=== PATIENT | male | born 1980 | race Caucasian/White ===

== ENCOUNTER 2023-05-07 12:13 | Emergency (ER) | payer OTHER, SELFPAY ==
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
[2023-05-07 12:28] VITALS: BP 113/78; PULSE 73; RESP 18; TEMP 36.8; O2SAT 96; BMI 26.6
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
--- NOTE | 2023-05-07 12:51 | PC.NURSE ---
pt in CT scan
[2023-05-07] MEDS: Ketorolac Tromethamine 30 MG/ML VIAL IM (14:27)
== END 2023-05-07 14:40 | disposition home or self-care (01) ==
PROVIDERS: Emergency Provider Emergency Medicine
DX: Z04.1 Encounter for examination and observation following transport accident (principal); M62.838 Other muscle spasm; M25.511 Pain in right shoulder; E11.9 Type 2 diabetes mellitus without complications; I10 Essential (primary) hypertension
CPT/HCPCS: 72100; 72125; 73030; 96372; 99283; 99284; J1885

== ENCOUNTER 2023-07-01 10:08 | Outpatient (REF) | payer OTHER, SELFPAY ==
[2023-07-01 12:08] LABS: Alanine Aminotransferase 22 U/L (0-40); Albumin Level 3.8 g/dL (3.5-5.0); Alkaline Phosphatase 96 U/L (39-117); Anion Gap 10 (12-20); Aspartate Amino Transferase 17 U/L (5-37); Bilirubin Total 0.4 mg/dL (0.0-1.0); Blood Urea Nitrogen 15 mg/dL (9-16); Calcium 9.6 mg/dL (8.4-10.2); Carbon Dioxide 26 mmol/L (22-29); Chloride 105 mmol/L (96-108); Estimated Glomerular Filt Rate > 60; Glucose Random 297 mg/dL (60-115); Potassium 4.2 mmol/L (3.3-5.1); Sodium 137 mmol/L (135-145); Total Protein 6.9 g/dL (6.5-8.0)
[2023-07-01 12:29] LABS: Creatinine Urine 69.61 mg/dL; Microalbumin Urine < 5.0 mg/L
== END 2023-07-01 10:09 | disposition home or self-care (01) ==
LOC: HO.HHCL 10:08
PROVIDERS: Visit Provider Registered Nurse
DX: E11.9 Type 2 diabetes mellitus without complications (principal)
CPT/HCPCS: 36415; 80053; 82043

== ENCOUNTER → 2023-10-27 14:14 | Outpatient (BNVA) | payer OTHER, SELFPAY | PROVIDERS: Visit Provider Nurse Practitioner Family ==

== ENCOUNTER 2024-07-09 13:32 | Outpatient (REF) | payer OTHER, SELFPAY ==
--- NOTE | ~2024-07-09 | XR_ITS ---
EXAMINATION: XR SHOULDER, RIGHT CLINICAL INFORMATION: Acute shoulder pain COMPARISON: X-ray 05/07/2023 TECHNIQUE: AP external rotation, Grashey, scapular Y, and axillary views of the right shoulder. FINDINGS: No acute fracture. Mild-moderate acromioclavicular arthritis. Glenohumeral alignment is anatomic with normal joint space. No abnormal soft tissue calcifications. XR/XR shoulder RT min 2V IMPRESSION: Mild-moderate acromioclavicular arthritis. Electronically signed by: Pepe Smyth MD 07/12/2024 10:39 AM EDT
== END 2024-07-09 13:33 | disposition home or self-care (01) ==
LOC: HO.HHCX 13:32
PROVIDERS: Visit Provider Internal Medicine
DX: M25.511 Pain in right shoulder (principal)
CPT/HCPCS: 73030

== ENCOUNTER 2024-12-13 09:55 | Outpatient (REF) | payer OTHER, SELFPAY ==
--- NOTE | ~2024-12-13 | XR_ITS ---
EXAMINATION: XR CHEST CLINICAL INFORMATION: 3 day h/o right anterior chest pain, worse with inspiration. COMPARISON: X-ray dated July 03, 2010 TECHNIQUE: 2 views of the chest were obtained. FINDINGS: Menisci shaped opacity right lower hemithorax with blunting of the right costophrenic angle. Volume loss right lung. Pulmonary reticular pattern. No pneumothorax. Aerated left lung. Cardiomediastinal silhouette is normal. Osseous structures are intact. XR/XR chest 2V IMPRESSION: Right-sided pleural effusion, moderate volume. Acute airspace disease, right lower lung lobe. Please follow-up until resolution settings underlying lesion cannot be excluded. Electronically signed by: Sebastian Maria MD 12/13/2024 10:44 AM [place]
--- OUTSIDE RECORDS SUMMARY | 2024-12-13 14:29 | XMS_ITS | Encounter Summary ---
Author Organization [employer] Address [address] [place] [address] 7[address] [place] [address] Care Team Providers Care [employer] Teacher Name Role Phone Jamin Bhanu AGNP Primary Care Provider Unavail Carey FloresP Primary Care Provider [phone] Vale Sales NP Primary Care Provider [phone] Encounter Details Date Type Department Care Team ([facility] Contact Info) Description 12/31/2022 Abstract [facility] [address] [place] [address] Elver Montiel DDS [address] [place] [address] Social History Tobacco Use Types Packs/Day Years Used Date Smoking Tobacco: Every Day Cigarettes Alcohol Use Standard Drinks/Week Comments Not Currently 0 (1 standard drink = 0.6 oz pur e alcohol) Sex and Gender Information Value Date Recorded Sex Assigned at Male 09/16/2022 10:15 AM EDT Legal Sex Male 10:15 AM EDT Gender Identity Male 09/16/2022 10:15 AM EDT Sexual Orientation Straight 09/16/2022 10 :15 AM EDT COVID-19 Exposure Response Date Recorded In the last 10 days, have yo u been in contact with someone who was confirmed or suspected to have Coronavirus/COVID-19? No / Unsure 12/25/2022 10:13 AM EST documented as of this encounter Plan of Treatment Upcoming Encounters Date Type Department Care Team (Late Contact Info) Description 01/07/2025 1:45 PM EST Office Visit [facility] [address] [place] [address] Vale Sales NP [address] [place] [address] 03/31/2025 1:30 PM EDT Office Visit [facility] [address] [place] [address] Feli Joseph, OD [address] [place] [address] documented as of this encounter Visit Diagnoses Not on filedocumented in this encounter Care Teams [employer] Teacher Relationship Specialty Start Date End Date Bhanu Neville AGNP PCP - General Family Medicine 11/19/22 08/06/23 Carey Staples FNP [address] [place] [address] PCP - General Family Medicine 08/07/23 12/11/23 Vale Sales NP [address] [place] [address] PCP - General Family Medicine 12/12/23 documented as of this encounter
--- OUTSIDE RECORDS SUMMARY | 2024-12-13 14:29 | XMS_ITS | Encounter Summary ---
Author Organization [employer] Address [address] [place] [address] [address] [place] [address] Care Team Providers Care Vice Investigator Name Role Phone JhoanOliviaphilippe KERNS Primary Care Provider [phone] Vale Sales NP Primary Care Provider [phone] Reason for Visit * Reason Comments Med Refill Encounter Details Date Type Department Care Team (Late st Contact Info) Description 08/13/2023 Refill [facility] [address] [place] [phone] Bhanu Neville AGNP Hypertriglyceridemia Social History Tobacco Use Types Packs/Day Years Used Date Smoking Tobacco: Every Day Cigarettes Smokeless Tobacco: Never Alcohol Use Standard Drinks/Week Comments Not Currently 0 (1 standard drink = 0.6 oz pur e alcohol) Depression Answer Date Recorded Patient Health Questionnaire-9 Score 9 04/02/2023 Depression Answer Date Recorded Patient Health Questionnaire-2 Score 3 04/02/2023 Sex and Gender Information Value Date Recorded Sex Assigned at Male 09/16/2022 10:15 AM EDT Legal Sex Male 10:15 AM EDT Gender Identity Male 09/16/2022 10:15 AM EDT Sexual Orientation Straight 09/16/2022 10 :15 AM EDT documented as of this encounter Plan of Treatment Upcoming Encounters Date Type Department Care Team (Late st Contact Info) Description 01/07/2025 1:45 PM EST Office Visit [facility] [address] [place] [address] Vale Sales NP [address] [place], [place] [phone] 03/31/2025 1:30 PM EDT Office Visit [facility] [address] [place], [place] [phone] Feli Joseph, OD [address] [place] [address] documented as of this encounter Visit Diagnoses Diagnosis Hypertriglyceridemia Pure hyperglyceridemia documented in this encounter Additional Health Concerns Assessment Noted Time PHQ-9 Depression Total Score: 9 04/02/20 23 2:32 PM EDT documented as of this encounter Care Teams Vice Investigator Relationship Specialty Start Date End Date Carey Staples FNP [address] [place] [address] PCP - General Family Medicine 08/07/23 12/11/23 Vale Sales NP [address] [place], [place] [phone] PCP - General Family Medicine 12/12/23 documented as of this encounter
--- OUTSIDE RECORDS SUMMARY | 2024-12-13 14:29 | XMS_ITS | Encounter Summary ---
Author Organization [employer] Address [address] [facility] 7t [place] [address] Care Team Providers Care Dining Service Supervisor Name Role Phone Vale Sales NP Primary Care Provider [phone] Encounter Details Date Type Department Care Team ([facility] st Contact Info) Description 08/04/2024 Telephone [facility] [address] [place], [place] [phone] Vale Sales NP [address] [place], [place] [phone] Social History Tobacco Use Types Packs/Day Years Used Date Smoking Tobacco: Every Day Cigarettes Passive Smoke Exposure: Current Smokeless Tobacco: Never Comments:Smoking 26 years Alcohol Use Standard Drinks/Week Comments Not Currently 0 (1 standard drink = 0.6 oz pur e alcohol) fridays - beers Depression Answer Date Recorded Patient Health Questionnaire-9 Score 0 07/23/2024 Patient Health Questionnaire-9 Score 0 07/23/2024 Last PHQ-9: Questionnaire Data Not on file 0 07/23/2024 Housing Stability Answer Date Recorded What is your housing situation today? I have ryan baldwin 09/11/[address] you li ve. Do you have problems with any of the following? None of the above 09/11/2023 Food Insecurity Answer Date Recorded Within the past 12 months, y ou worried that your food would run out before you got money to buy more: Never True 07/23/2024 Within the past 12 months,th e food you bought just didn't last and you didn't have enough money to get more: Never True 04/2024 Transportation Answer Date Recorded In the past 12 months, has l ack of transportation kept you from medical appts, meetings, work or from getting things needed for daily living? No 09/11/2023 Utilities Answer Date Recorded In the past 12 months, has t he electric, gas, oil or water company threatened to shut off services in your home? No 09/11/2023 Depression Answer Date Recorded Patient Health Questionnaire-2 Score 0 07/23/2024 Internet Access Answer Date Recorded Internet Access Q1 Yes 07/23/2024 Internet Access Q2 Not on file 07/23/2024 Sex and Gender Information Value Date Recorded Sex Assigned at Male 09/16/2022 10:15 AM EDT Legal Sex Male 10:15 AM EDT Gender Identity Male 09/16/2022 10:15 AM EDT Sexual Orientation Straight 09/16/2022 10 :15 AM EDT documented as of this encounter Plan of Treatment Upcoming Encounters Date Type Department Care Team (Late st Contact Info) Description 01/07/2025 1:45 PM EST Office Visit [facility] [address] [place] [address] Vale Sales NP [address] [place] [address] 03/31/2025 1:30 PM EDT Office Visit [facility] OPTOM[facility] [address] [place] [address] Jake, Feli, OD [address] [place] [address] documented as of this encounter Goals Goal Patient Goal Type Associated Problems Recent Progress Patient-Stated? Author Blood Pressure < 140/90 Blood Pressure 116/72(2024 8:51 AM EST) No Gen Vora Hemoglobin A1c < 7 Result Component 10(10/05/2024 1:44 PM EST) No Gen Vora documented as of this encounter Visit Diagnoses Not on filedocumented in this encounter Additional Health Concerns Assessment Noted Time PHQ-9 Depression Total Score: 0 07/23/20 24 3:50 PM EDT documented as of this encounter Care Teams Dining Service Supervisor Relationship Specialty Start Date End Date Vale Sales NP [address] [place] [address] PCP - General Family Medicine 12/12/23 documented as of this encounter
--- OUTSIDE RECORDS SUMMARY | 2024-12-13 14:29 | XMS_ITS | Encounter Summary ---
Author Organization [employer] Address [address] [facility] 7t [place] [address] Care Team Providers Care Complex Care Nurse Practitioner Name Role Phone Vale Sales NP Primary Care Provider [phone] Reason for Visit * Reason Comments Med Refill Encounter Details Date Type Department Care Team ([facility] st Contact Info) Description 06/23/2024 Refill [facility] [address] [place], [place] [phone] Vale Sales NP [address] [place], [place] [phone] Pain Social History Tobacco Use Types Packs/Day Years Used Date Smoking Tobacco: Every Day Cigarettes Smokeless Tobacco: Never Comments:Smoking 26 years Alcohol Use Standard Drinks/Week Comments Not Currently 0 (1 standard drink = 0.6 oz pur e alcohol) fridays - beers Depression Answer Date Recorded Patient Health Questionnaire-9 Score 9 04/02/2023 Housing Stability Answer Date Recorded What is your housing situation today? I have ryan baldwin 09/11/[address] you li ve. Do you have problems with any of the following? None of the above 09/11/2023 Food Insecurity Answer Date Recorded Within the past 12 months, y ou worried that your food would run out before you got money to buy more: Sometimes True 2022 Within the past 12 months,th e food you bought just didn't last and you didn't have enough money to get more: Sometimes True 09/11/2023 Transportation Answer Date Recorded In the past [...] Description 01/07/2025 1:45 PM EST Office Visit [facility] [address] [place] [address] Vale Sales NP [address] [place] [address] 03/31/2025 1:30 PM EDT Office Visit [facility] OPTOMETRY [address] [place] [address] Jake, Feli, OD [address] [place] [address] documented as of this encounter Goals Goal Patient Goal Type Associated Problems Recent Progress Patient-Stated? Author Blood Pressure < 140/90 Blood Pressure 116/72(2024 8:51 AM EST) No Gen Vora Hemoglobin A1c < 7 Result Component 10(10/05/2024 1:44 PM EST) No Gen Vora documented as of this encounter Visit Diagnoses Diagnosis Pain Generalized pain documented in this encounter Additional Health Concerns Assessment Noted Time PHQ-9 Depression Total Score: 9 04/02/20 23 2:32 PM EDT documented as of this encounter Care Teams Complex Care Nurse Practitioner Relationship Specialty Start Date End Date Vale Sales NP [address] [place] [address] PCP - General Family Medicine 12/12/23 documented as of this encounter
--- OUTSIDE RECORDS SUMMARY | 2024-12-13 14:29 | XMS_ITS | Encounter Summary ---
Author Organization [employer] Address [address] [facility] [address] 7[address] [place] [address] Care Team Providers Care Cell Builder Name Role Phone Rosalindacici Vale RICE Primary Care Provider [phone] Encounter Details Date Type Department Care Team ([facility] Contact Info) Description 11/15/2024 Telephone [facility] [address] [place], [place] [phone] Sarah Smith, RN Social History Tobacco Use Types Packs/Day Years [...] AM EDT documented as of this encounter Miscellaneous Notes * Telephone Encounter - Sarah Smith RN - 11/15/2024 9:20 AM EST CGM PA faxed to [facility], confirmation received and forms placed in H.I.[employer] scanning bin. Approval/Denial decision pending and no further questions or concerns at this time. documented in this encounter Plan of Treatment Upcoming Encounters Date Type Department Care Team (Late st Contact Info) Description 01/07/2025 1:45 PM EST Office Visit [facility] [address] [place] [address] Vale Sales NP [address] [place] [address] 03/31/2025 1:30 PM EDT Office Visit [facility] OPTOMETRY [address] [place] [address] Jake, Feli, OD [address] [place] [address] documented as of this encounter Goals Goal [...] documented as of this encounter Care Teams Cell Builder Relationship Specialty Start Date End Date Vale Sales NP [address] [place] [address] PCP - General Family Medicine 12/12/23 documented as of this encounter
--- OUTSIDE RECORDS SUMMARY | 2024-12-13 14:29 | XMS_ITS | Encounter Summary ---
Author Organization [employer] Address [address] [facility] 7t [place] [address] Care Team Providers Care Railways Assistant Name Role Phone Henrry Vale RICE Primary Care Provider [phone] Encounter Details Date Type Department Care Team ([facility] st Contact Info) Description 12/13/2024 9:20 AM EST Office Visit [facility] [address] [place], [place] [phone] Everett Quiñonez MD [address] [place] [address] Abnormal chest x-ray (Primary Dx); Right-sided chest pain; Viral URI Social History Tobacco Use Types Packs/Day Years [...] AM EDT documented as of this encounter Last Filed Vital Signs Vital Sign Reading Time Taken Comments Blood Pressure 116/72 12/13/2024 8:51 AM EST Pulse 103 12/13/2024 8:51 AM EST Temperature 36.3 ??C (97.4 ??F) 12/13/2024 8:51 AM ES T Respiratory Rate - - Oxygen Saturation 97% 12/13/2024 8:51 AM EST Inhaled Oxygen Concentration - - Weight - - Height - - Body Mass Index - - documented in this encounter Progress Notes * Everett Quiñonez MD - 12/13/2024 9:20 AM EST Subjective Patient ID: Ganesh Mack is a 44 y.o. male. HPI Ganesh has onset 2 days ago of bubble sensation in right side of chest that is worse with inspiration, and with my usual cough ; also has body aches, sweats. Occasional SOB. No n/v/d, or sputum. Feels better today compared to yesterday. Lives with 2 daughters. No known ill contacts. Works for [employer], outside. Smokes 1/2-1 PPD. Declines NRT. Smokes weed. Patient Active Problem List Diagnosis Chronic low back pain Depressive disorder Diabetes mellitus type 2, uncomplicated (CMS/HCC) Hypertriglyceridemia Tobacco dependence syndrome Encounter for screening for malignant neoplasm of colon Candidal balanitis ERRONEOUS ENCOUNTER--DISREGARD Low HDL (under 40) Reduced vision Uncontrolled type 2 diabetes mellitus with hyperglycemia ([facility]/HCC) Acute pain of right shoulder Dietary counseling Exercise counseling Needle phobia The following portions of the chart were reviewed this encounter and updated as appropriate: Tobacco Allergies Meds Problems Med Hx Surg Hx Fam Hx Review of Systems Constitutional: Positive for diaphoresis. Negative for fever. Respiratory: Positive for cough and shortness of breath. Cardiovascular: Positive for chest pain. Gastrointestinal: Negative for abdominal pain. Skin: Negative for rash. Neurological: Negative for headaches. Objective Physical Exam Constitutional: Appearance: Normal appearance. HENT: Right Ear: Tympanic membrane, ear canal and external ear normal. Left Ear: Tympanic membrane, ear canal and external ear normal. Nose: Nose normal. Mouth/Throat: Mouth: Mucous membranes are moist. Pharynx: Oropharynx is clear. Eyes: Conjunctiva/sclera: Conjunctivae normal. Pupils: Pupils are equal, round, and reactive to light. Cardiovascular: Rate and Rhythm: Normal rate and regular rhythm. Heart sounds: No murmur heard. Pulmonary: Effort: Pulmonary effort is normal. Breath sounds: Normal breath sounds. Musculoskeletal: General: Normal range of motion. Cervical back: No tenderness. Skin: Findings: No rash. Neurological: Mental Status: He is alert. Gait: Gait is intact. Psychiatric: Mood and Affect: Mood normal. Behavior: Behavior normal. Procedures Assessment/Plan Diagnoses and all orders for this visit: Abnormal chest x-ray Negative rapid Covid and Influenza tests. Covid PCR and Flu tests pending. CXR done in [facility] read by ct appears to show opacification of right lower lung field vs elevated right hemidiaphragm. There is no radiology reading available at this time; he is being referred to the ED for further evaluation. Right-sided chest pain As above. - XR Chest 2 Views; Future Viral URI - POCT Rapid COVID Ag - Influenza A (ID NOW Rapid Molecular) - Influenza B (ID NOW Rapid Molecular) documented in this encounter Plan of Treatment Upcoming Encounters Date Type Department Care Team (Late st Contact Info) Description 01/07/2025 1:45 PM EST Office Visit [facility] MED[facility] [address] [place] [address] Vale Sales NP [address] [place] [address] 03/31/2025 1:30 PM EDT Office Visit [facility] OPTOMETRY [address] [place] [address] Feli Joseph, OD [address] [place] [address] documented as of this encounter Goals Goal Patient Goal Type Associated Problems Recent Progress Patient-Stated? Author Blood Pressure < 140/90 Blood Pressure 116/72(2024 8:51 AM EST) No Gen Vora Hemoglobin A1c < 7 Result Component 10(10/05/2024 1:44 PM EST) No Gen Vora documented as of this encounter Procedures Procedure Name Priority Date/Time Associated Diagnosis Comments XR CHEST 2 VIEWS Routine 12/13/2024 9:56 AM EST Right-sided chest pain POCT INFLUENZA B (ID NOW RAPID MOLECULAR) Routine 12/13/2024 9:11 AM EST Viral URI POCT INFLUENZA A (ID NOW RAPID MOLECULAR) Routine 12/13/2024 9:11 AM EST Viral URI POCT RAPID COVID ANTIGEN Routine 12/13/2024 9:11 AM EST Viral URI documented in this encounter Results * XR Chest 2 Views (12/13/2024 9:56 AM EST) Anatomical Region Laterality Modality Chest Radiographic Eryn ging 12/13/2024 9:56 AM EST Narrative 12/13/2024 10:47 AM EST ?[facility] ?[address] ?[place] [address] ?XRay Report ? Signed ? Patient: Frederick,Ganesh ?MR#: [id number] ?? [id number] ? : 1980 ?Acct:[id number] ? Age/Sex: 44 / M ?ADM Date: 01/27/25 ? Loc: HO.HHCX ? Attending Dr: Everett Quiñonez MD ? Ordering Physician: EVERETT QUIÑONEZ MD ?? Date of Service: 12/13/24 ?? Procedure(s): XR chest 2V ?? Accession Number(s): [id number] ? cc: EVERETT QUIÑONEZ MD ? EXAMINATION: ?? XR CHEST ? CLINICAL INFORMATION: ?? 3 day h/o right anterior chest pain, worse with inspiration. ? COMPARISON: ?? X-ray dated July 03, 2010 ? TECHNIQUE: ?? 2 views of the chest were obtained. ? FINDINGS: ?? Menisci shaped opacity right lower hemithorax with blunting of the ?? right costophrenic angle. Volume loss right lung. ?? Pulmonary reticular pattern. ?? No pneumothorax. ?? Aerated left lung. ?? Cardiomediastinal silhouette is normal. ?? Osseous structures are intact. ? XR/XR chest 2V ?? IMPRESSION: ?? Right-sided pleural effusion, moderate volume. ?? Acute airspace disease, right lower lung lobe. ?? Please follow-up until resolution settings underlying lesion cannot be ?? excluded. ? Electronically signed by: ??Sebastian Maria MD ??12/13/2024 10:44 AM ?? EST RP ? Dictated By: ?Sebastian Cooper MD ? Signed By: ?<Electronically signed by Sebastian Stack MD in OV> ? 12/13/24 1044 ? DD/ 0956 ? TD/TT: 12/13/24 1012 ? Food Production Associate: ? Procedure Note Dg, Image - 12/13/[address] [address] XRay Report Signed Patient: Ganesh MackMR#: [id number] : 1980Acct:[id number] Age/Sex: 44 / MADM Date: 12/13/24 Loc: HO.HHCX Attending Dr: Everett Quiñonez MD Ordering Physician: EVERETT QUIÑONEZ MD Date of Service: 12/13/24 Procedure(s): XR chest 2V Accession Number(s): [id number] cc: EVERETT QUIÑONEZ MD EXAMINATION: XR CHEST CLINICAL INFORMATION: 3 day h/o right anterior chest pain, worse with inspiration. COMPARISON: X-ray dated July 03, 2010 TECHNIQUE: 2 views of the chest were obtained. FINDINGS: Menisci shaped opacity right lower hemithorax with blunting of the right costophrenic angle. Volume loss right lung. Pulmonary reticular pattern. No pneumothorax. Aerated left lung. Cardiomediastinal silhouette is normal. Osseous structures are intact. XR/XR chest 2V IMPRESSION: Right-sided pleural effusion, moderate volume. Acute airspace disease, right lower lung lobe. Please follow-up until resolution settings underlying lesion cannot be excluded. Electronically signed by: Sebastian Maria MD 12/13/2024 10:44 AM EST RP Dictated By: Sebastian Cooper MD Signed By: <Electronically signed by Sebastian Stack MDin OV> 12/13/24 1044 DD/ 0956 TD/TT: 12/13/24 1012 Food Production Associate: us Everett Quiñonez MD IMG XR PROCEDURES Final Result * Influenza B (ID NOW Rapid Molecular) (12/13/2024 9:11 AM EST) Influenza B Negative Negative, Indeterminate [facility] Swab 12/13/2024 9:11 AM EST us Everett Quiñonez MD POINT OF CARE TEST ENTER/EDIT OR DERABLES Final Result Performing Organization Address City/[facility]/ZIP Co de Phone Number [facility] [address] [place] [phone] * Influenza A (ID NOW Rapid Molecular) (12/13/2024 9:11 AM EST) Influenza A Negative Negative, Indeterminate [facility] Swab 12/13/2024 9:11 AM EST us Everett Quiñonez MD POINT OF CARE TEST ENTER/EDIT OR DERABLES Final Result Performing Organization Address [facility]/ZIP Co de Phone Number [facility] [address] [place] [phone] * POCT Rapid COVID Ag (12/13/2024 9:11 AM EST) Rapid COVID Ag Negative [facility] Swab 12/13/2024 9:11 AM EST us Everett Quiñonez MD POINT OF CARE TEST ENTER/EDIT OR DERABLES Final Result [facility] [address] [place] [phone] [phone] documented in this encounter Visit Diagnoses Diagnosis Abnormal chest x-ray- Primary Nonspecific (abnormal) findings on radiological and other examination of lung field Right-sided chest pain Viral URI Acute upper respiratory infections of unspecified site documented in this encounter Additional Health Concerns Assessment Noted Time PHQ-9 Depression Total Score: 0 07/23/20 24 3:50 PM EDT documented as of this encounter Care Teams Railways Assistant Relationship Specialty Start Date End Date Vale Sales NP [address] [place] [phone] PCP - General Family Medicine 12/12/23 documented as of this encounter
--- OUTSIDE RECORDS SUMMARY | 2024-12-13 14:29 | XMS_ITS | Encounter Summary ---
Author Organization [employer] Address [address] [place] [address] [address], [place] [address] Care Team Providers Care Tissue Specialist Name Role Phone Carey Staples Primary Care Provider [phone] Vale Sales NP Primary Care Provider [phone] Encounter Details Date Type Department Care Team (Late Contact Info) Description 08/11/2023 Telephone [facility] [address] [place] [phone] Carey Staples FNP [address] [place] [address] Social History Tobacco Use Types Packs/Day Years [...] Upcoming Encounters Date Type Department Care Team ([facility] Contact Info) Description 01/07/2025 1:45 PM EST Office Visit [facility] [address] [place] [phone] Vale Sales NP [address] [place], [place] [phone] 03/31/2025 1:30 PM EDT Office Visit [facility] OPTOMETRY [address] [place] [address] Feli Joseph, OD [address] [place] [address] documented as of this encounter Visit Diagnoses Not on filedocumented in this encounter Additional Health Concerns Assessment Noted Time PHQ-9 Depression Total Score: 9 04/02/20 23 2:32 PM EDT documented as of this encounter Care Teams Tissue Specialist Relationship Specialty Start Date End Date Carey Staples FNP [address] [place] [address] PCP - General Family Medicine 08/07/23 12/11/23 Vale Sales NP [address] [place] [address] PCP - General Family Medicine 12/12/23 documented as of this encounter
--- OUTSIDE RECORDS SUMMARY | 2024-12-13 14:29 | XMS_ITS | Encounter Summary ---
Author Organization [employer] Address [address] [facility] 7t [place] [address] Care Team Providers Care Telephoner Name Role Phone Henrry Vale RICE Primary Care Provider [phone] Reason for Visit * Reason Onset Date Comments ED expect 12/13/2024 Encounter Details Date Type Department Care Team ([facility] Contact Info) Description 12/13/2024 Telephone [facility] [address] [place], [place] [phone] Everett Quiñonez MD [address] [place], [place] [phone] ED expect Social History Tobacco Use Types Packs/Day Years [...] encounter Miscellaneous Notes * Telephone Encounter - Pretty Nair RN - 12/13/2024 10:26 AM EST TC placed to [facility] ED for an expect by private car spoke to Pamela and discussed the message below, CXR done in [facility] read by me appears to show opacification of right lower lung field vs elevated right hemidiaphragm. There is no radiology reading available at this time; he is being referred to the ED for further evaluation. documented in this encounter Plan of Treatment Upcoming Encounters Date Type Department Care Team (Late st Contact Info) Description 01/07/2025 1:45 PM EST Office Visit [facility] [address] [place] [address] Vale Sales, KRYSTAL [address] [place] [address] 03/31/2025 1:30 PM EDT Office Visit [facility] [address] [place] [address] Feli Joseph, OD [address] [place] [address] documented as of this encounter Goals Goal [...] Time PHQ-9 Depression Total Score: 0 07/23/20 3:50 PM EDT documented as of this encounter Care Teams Telephoner Relationship Specialty Start Date End Date Vale Sales NP [address] [place] [address] PCP - General Family Medicine 12/12/23 documented as of this encounter
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
--- OUTSIDE RECORDS SUMMARY | 2024-12-13 14:29 | XMS_ITS | Encounter Summary ---
Author Organization [employer] Address [address] [facility] 7t [place] [address] Care Team Providers Care Grinding Mill Operator Name Role Phone Henrry Vale KRYSTAL Primary Care Provider [phone] Reason for Visit * Reason Comments Med Refill Encounter Details Date Type Department Care Team ([facility] st Contact Info) Description 10/18/2024 Refill [facility] CHC MED & PEDS [address] [place], [place] [phone] Name, MD Rupert [address] [place] [phone] Elevated blood pressure reading Social History Tobacco Use Types Packs/Day Years [...] Description 01/07/2025 1:45 PM EST Office Visit [facility] MEDICINE [address] [place] [address] Vale Sales NP [address] [place] [address] 03/31/2025 1:30 PM EDT Office Visit [facility] OPTOMETRY [address] [place] [address] Jake, Feli, OD [address] [place] [address] documented as of this encounter Goals Goal Patient Goal Type Associated Problems Recent Progress Patient-Stated? Author Blood Pressure < 140/90 Blood Pressure 116/72(2024 8:51 AM EST) No Gen Voar Hemoglobin A1c < 7 Result Component 10(10/05/2024 1:44 PM EST) No Gen Vora documented as of this encounter Visit Diagnoses Diagnosis Elevated blood pressure reading Elevated blood pressure reading without diagnosis of hypertension documented in this encounter Additional Health Concerns Assessment Noted Time PHQ-9 Depression Total Score: 0 07/23/20 24 3:50 PM EDT documented as of this encounter Care Teams Grinding Mill Operator Relationship Specialty Start Date End Date Vale Sales NP [address] [place] [address] PCP - General Family Medicine 12/12/23 documented as of this encounter
--- OUTSIDE RECORDS SUMMARY | 2024-12-13 14:29 | XMS_ITS | Encounter Summary ---
Author Organization [employer] Address [address] [facility] 7t [place] [address] Care Team Providers Care Chainstitch Zipper Setter Name Role Phone Vale Sales KRYSTAL Primary Care Provider [phone] Reason for Visit * Reason Onset Date Comments Dec. Recall 11/25/2024 Encounter Details Date Type Department Care Team ([facility] Contact Info) Description 11/25/2024 Telephone [facility] MEDICINE [address] [place], [place] [phone] Laura Mendoza MA Dec. Recall Social History Tobacco Use Types Packs/Day Years [...] encounter Miscellaneous Notes * Telephone Encounter - Laura Mendoza MA - 11/25/2024 10:35 AM EST T/C- Cotton Picking Machine Operator and Patient made a Office Visit appointment with [facility] for December. Appointment reminder sent via mail. documented in this encounter Plan of Treatment Upcoming Encounters Date Type Department Care Team (Late st Contact Info) Description 01/07/2025 1:45 PM EST Office Visit [facility] MEDICINE [address] [place] [address] Vale Sales, KRYSTAL [address] [place] [address] 03/31/2025 1:30 PM EDT Office Visit [facility] OPTOMETRY [address] [place] [address] Feli Joseph, OD [address] [place] [address] documented as of this encounter Goals Goal [...] documented as of this encounter Care Teams Chainstitch Zipper Setter Relationship Specialty Start Date End Date Vale Sales NP [address] [place] [address] PCP - General Family Medicine 12/12/23 documented as of this encounter
--- OUTSIDE RECORDS SUMMARY | 2024-12-13 14:29 | XMS_ITS | Encounter Summary ---
Author Organization [employer] Address [address] [facility] 7t [place] [address] Care Team Providers Care Snow Remover Name Role Phone Henrry Vale RICE Primary Care Provider Reason for Visit * Reason Comments Med Refill Encounter Details Date Type Department Care Team ([facility] st Contact Info) Description 01/29/2024 Refill [facility] CHC MED & PEDS [address] [place], [place] [phone] Carey Staples FNP [address] [place] [address] Pain Social History Tobacco Use Types Packs/Day [...] Description 01/07/2025 1:45 PM EST Office Visit [facility] MEDICINE [address] [place] [address] Vale Sales NP [address] [place] [address] 03/31/2025 1:30 PM EDT Office Visit [facility] OPTOMETRY [address] [place] [address] Jake, Feli, OD 230 [place] [address] documented as of this encounter Goals Goal [...] documented as of this encounter Care Teams Snow Remover Relationship Specialty Start Date End Date Vale Sales NP 230 [place] [address] PCP - General Family Medicine 12/12/23 documented as of this encounter
== END 2024-12-13 09:56 | disposition home or self-care (01) ==
LOC: HO.HHCX 09:55
PROVIDERS: Visit Provider Emergency Medicine
DX: R07.9 Chest pain, unspecified (principal)
CPT/HCPCS: 71046

== ENCOUNTER → 2024-12-13 09:56 | Outpatient (BNV) | payer OTHER, SELFPAY | PROVIDERS: Visit Provider Radiology Diagnostic Radiology | DX: J90 Pleural effusion, not elsewhere classified (principal); J84.89 Other specified interstitial pulmonary diseases | CPT/HCPCS: 71046 ==

== ENCOUNTER 2024-12-13 10:46 | Emergency (ER) | payer OTHER, SELFPAY ==
--- NOTE | 2024-12-13 10:47 | ECG_ITS ---
Test Reason : cp Blood Pressure : */* mmHG Vent. Rate : 102 BPM Atrial Rate : 102 BPM P-R Int : 130 ms QRS Dur : 82 ms QT Int : 326 ms P-R-T Axes : 70 12 46 degrees QTcB Int : 424 ms Sinus tachycardia Otherwise normal ECG When compared with ECG of 21-May-2014 16:46, Vent. rate has increased by 43 bpm Referred By: Generic ED Physician Electronically Signed By: JOANNE MURRAY
== END 2024-12-13 13:33 | disposition left against medical advice (07) ==
LOC: HO.ED 13:29
PROVIDERS: Emergency Provider Emergency Medicine
DX: R07.9 Chest pain, unspecified (principal); R00.0 Tachycardia, unspecified; Z53.21 Procedure and treatment not carried out due to patient leaving prior to being seen by health care provider
CPT/HCPCS: 71046; 93005; 99281; 99282

== ENCOUNTER → 2024-12-13 10:47 | Outpatient (BNV) | payer OTHER, SELFPAY | PROVIDERS: Emergency Provider Emergency Medicine; Visit Provider Internal Medicine | DX: R07.9 Chest pain, unspecified (principal) | CPT/HCPCS: 93010 ==

== ENCOUNTER 2025-01-10 10:44 | Outpatient (REF) | payer OTHER, SELFPAY ==
--- NOTE | ~2025-01-10 | XR_ITS ---
EXAMINATION: XR CHEST CLINICAL INFORMATION: COUGH COMPARISON: 12/13/2024. TECHNIQUE: 2 views of the chest were obtained. FINDINGS: The cardiac, hilar, and mediastinal contours are normal. Lungs again demonstrate right lower lobe airspace disease, with a tiny associated lateral pleural opacity likely representing effusion. There is a suggestion of loculation. The left lung is clear. There is no pneumothorax or left pleural effusion. There is no focal osseous or soft tissue abnormality. XR/XR chest 2V IMPRESSION: 1. Right lower lobe pneumonia, either persistent or recurrent. Tiny associated effusion with possible loculation. Electronically signed by: John Macedo MD 01/10/2025 11:23 AM [facility]
--- OUTSIDE RECORDS SUMMARY | 2025-01-10 12:08 | XMS_ITS | Encounter Summary ---
Author Organization [employer] Address [address] [facility] 7t [place] [address] Care Team Providers Care Supervisor Finish End Name Role Phone Henrry Vale RICE Primary Care Provider [phone] Encounter Details Date Type Department Care Team ([facility] st Contact Info) Description 12/13/2024 9:20 AM EST Office Visit [facility] [address] [place], [place] [phone] Everett Quiñonez MD [address] [place] [phone] Abnormal chest x-ray (Primary Dx); Right-sided chest [...] daughters. No known ill contacts. Works for [employer], outside. Smokes 1/2-1 PPD. Declines NRT. Smokes weed. Patient Active Problem List Diagnosis Chronic low back pain Depressive disorder Diabetes mellitus type 2, uncomplicated (CMS/HCC) Hypertriglyceridemia Tobacco dependence syndrome Encounter for screening for malignant neoplasm of colon Candidal balanitis ERRONEOUS ENCOUNTER--DISREGARD Low HDL (under 40) Reduced vision Uncontrolled type 2 diabetes mellitus with hyperglycemia ([facility]/HCC) Acute pain of right shoulder Dietary counseling [...] and Flu tests pending. CXR done in [facility] read by [place] appears to show opacification of right lower [...] Care Team (Late st Contact Info) Description 01/25/2025 10:00 AM EDT Medication Management [facility] MEDICINE [address] [place] [address] Carmen Yu PharmD [address] [place] [address] 03/31/2025 1:30 PM EDT Office Visit [facility] OPTOMETRY [address] [place] [address] Feli Joseph, OD [address] [place] [address] documented as of this encounter Goals Goal Patient Goal Type Associated Problems Recent Progress Patient-Stated? Author Blood Pressure < 140/90 Blood Pressure 120/80(2024 9:59 AM EST) No Gen Vora Hemoglobin A1c [...] AM EST Narrative 12/13/2024 10:47 AM EST ?[facility] ?[address] ?[place] [address] ?XRay Report ? Signed ? Patient: Frederick,Ganesh ?MR#: [id number] ?? [id number] ? : 1980 ?Acct:[id number] ? Age/Sex: 44 / M ?ADM Date: 01/27/25 ? Loc: HO.HHCX ? Attending Dr: Everett Quiñonez MD ? Ordering Physician: EVERETT QUIÑONEZ MD ?? Date of Service: 12/13/24 ?? Procedure(s): XR chest 2V ?? Accession Number(s): [id number] ? cc: EVERETT QUIÑONEZ MD ? EXAMINATION: [...] DD/ 0956 ? TD/TT: 12/13/24 1012 ? Specimen Processor: ? Procedure Note Donhuber, Image - 12/13/[address] [address] XRay Report Signed Patient: Ganesh MackMR#: [id number] : 1980Acct:[id number] Age/Sex: 44 / MADM Date: 12/13/24 Loc: HO.HHCX Attending Dr: Everett Quiñonez MD Ordering Physician: EVERETT QUIÑONEZ MD Date of Service: 12/13/24 Procedure(s): XR chest 2V Accession Number(s): [id number] cc: EVERETT QUIÑONEZ MD EXAMINATION: XR CHEST [...] 12/13/24 1044 DD/ 0956 TD/TT: 12/13/24 1012 Specimen Processor: us Everett Quiñonez MD IMG XR PROCEDURES Final Result * Influenza B (ID NOW Rapid Molecular) (12/13/2024 9:11 AM EST) Influenza B Negative Negative, Indeterminate [facility] Swab 12/13/2024 9:11 AM EST us Everett Quiñonez MD POINT OF CARE TEST ENTER/EDIT OR DERABLES Final Result Performing Organization Address City/[facility]/ZIP Co de Phone Number [facility] [address] [place] [phone] * Influenza A (ID NOW Rapid Molecular) (12/13/2024 9:11 AM EST) Influenza A Negative Negative, Indeterminate [facility] Swab 12/13/2024 9:11 AM EST us Everett Quiñonez MD POINT OF CARE TEST ENTER/EDIT OR DERABLES Final Result Performing Organization Address [facility]/ZIP Co de Phone Number [facility] [address] [place] [phone] * POCT Rapid COVID Ag (12/13/2024 9:11 AM EST) Rapid COVID Ag Negative [facility] Swab 12/13/2024 9:11 AM EST Everett Quiñonez MD POINT OF CARE TEST ENTER/EDIT OR DERABLES Final Result [facility] [address] [place] [phone] documented in this encounter Visit Diagnoses Diagnosis Abnormal chest x-ray- Primary Nonspecific (abnormal) findings on radiological and other examination of lung field Right-sided chest pain Viral URI Acute upper respiratory infections of unspecified site documented in this encounter Additional Health Concerns Assessment Noted Time PHQ-9 Depression Total Score: 0 07/23/20 24 3:50 PM EDT documented as of this encounter Care Teams Supervisor Finish End Relationship Specialty Start Date End Date Vale Sales NP [address] [place] [address] PCP - General Family Medicine 12/12/23 documented as of this encounter
--- OUTSIDE RECORDS SUMMARY | 2025-01-10 12:08 | XMS_ITS | Encounter Summary ---
Author Organization [employer] Address [address] [facility] 7t [place] [address] Care Team Providers Care Lifeguard Name Role Phone Vale Sales NP Primary Care Provider [phone] Reason for Visit * Reason Comments Pre-visit Planning SDOH negative, Tobac co screening negative. Encounter Details Date Type Department Care Team ([facility] Contact Info) Description 12/28/2024 Patient Outreach [facility] MED & PEDS [address] [place], [place] [phone] Vale Sales, KRYSTAL [address] [place] [address] Pre-visit Planning (SDOH negative, Tobacco screening negative. ) Social History Tobacco Use Types Packs/Day Years [...] AM EDT documented as of this encounter Progress Notes * Vernell Durán - 12/28/2024 3:05 PM EST SHANA Olmstead placed successful outbound call to patient for pre-visit planning. Patient name and confirmed. Patient confirms appt date and time, and has transportation arrangements. Biggest concern for appointment at this time is no concerns. Appropriate screenings completed in anticipation ofappointment. documented in this encounter Plan of Treatment Upcoming Encounters Date Type Department Care Team (Late st Contact Info) Description 01/25/2025 10:00 AM EDT Medication Management [facility] MEDICINE [address] [place] [address] Carmen Yu, PharmD 230 [place] [address] 03/31/2025 1:30 PM EDT Office Visit [facility] OPTOMETRY [address] [place] [address] Jake, Feli, OD [address] [place] [address] documented as of this encounter Goals Goal [...] documented as of this encounter Care Teams Lifeguard Relationship Specialty Start Date End Date Vale Sales NP [address] [place] [address] PCP - General Family Medicine 12/12/23 documented as of this encounter
--- OUTSIDE RECORDS SUMMARY | 2025-01-10 12:08 | XMS_ITS | Encounter Summary ---
Author Organization [employer] Address [address] [facility] 7t [place] [address] Care Team Providers Care Exterminator Helper Name Role Phone Rosalindacici Vale RICE Primary Care Provider [phone] Reason for Visit * Reason Comments Med Refill Encounter Details Date Type Department Care Team ([facility] st Contact Info) Description 01/29/2024 Refill [facility] CHC MED & PEDS [address] [place], [place] [phone] Carey Staples FNP [address] [place] [address] Pain Social History Tobacco Use Types Packs/Day [...] Description 01/25/2025 10:00 AM EDT Medication Management [facility] MEDICINE 230 [place] [address] Carmen Yu, PharmD [address] [place] [address] 03/31/2025 1:30 PM EDT Office Visit [facility] OPTOMETRY [address] [place] [address] Jake, Feli, OD [address] [place] [address] documented as of this encounter Goals Goal [...] documented as of this encounter Care Teams Exterminator Helper Relationship Specialty Start Date End Date Vale Sales NP [address] [place] [address] PCP - General Family Medicine 12/12/23 documented as of this encounter
--- OUTSIDE RECORDS SUMMARY | 2025-01-10 12:08 | XMS_ITS | Encounter Summary ---
Author Organization [employer] Address [address] [facility] 7t [place] [address] Care Team Providers Care Administrator Social Welfare Name Role Phone Vale Sales NP Primary Care Provider Reason for Visit * Reason Comments Med Refill Encounter Details Date Type Department Care Team ([facility] st Contact Info) Description 01/09/[address] [facility] MEDICINE [address] [place], [place] [phone] Vale Sales NP [address] [place] [address] Elevated blood pressure reading Social History Tobacco [...] Description 01/25/2025 10:00 AM EDT Medication Management [facility] MEDICINE [address] [place] [address] Carmen Yu, PharmD [address] [place] [address] 03/31/2025 1:30 PM EDT Office Visit [facility] OPTOMETRY [address] [place] [address] Jake, Feli, OD [address] [place] [address] documented as of this encounter Goals Goal [...] documented as of this encounter Care Teams Administrator Social Welfare Relationship Specialty Start Date End Date Vale Sales NP [address] [place] [address] PCP - General Family Medicine 12/12/23 documented as of this encounter
--- OUTSIDE RECORDS SUMMARY | 2025-01-10 12:08 | XMS_ITS | Encounter Summary ---
Author Organization [employer] Address [address] [place] [address] 7t [place] [address] Care Team Providers Care Hvac Manager Name Role Phone Vale Sales NP Primary Care Provider [phone] Reason for Visit * Reason Onset Date Comments Chart Prep 12/29/2024 Encounter Details Date Type Department Care Team ([facility] Contact Info) Description 12/29/2024 Telephone [facility] MEDICINE [address] [place], [place] [phone] Connie Cook MA Chart Prep Social History Tobacco Use Types Packs/Day Years [...] encounter Miscellaneous Notes * Telephone Encounter - Connie Cook MA - 12/29/2024 4:02 PM EST Chart Prep Labs: not applicable Images: done Vaccines due: Covid, Hep A, Hep B, Flu Referrals: none Screenings: Foot Exam, Urine protein Overdue care gaps: A1C, Glucose documented in this encounter Plan of Treatment Upcoming Encounters Date Type Department Care Team (Late st Contact Info) Description 01/25/2025 10:00 AM EDT Medication Management [facility] MEDICINE [address] [place] [address] Carmen Yu, PharmD [address] [place] [address] 03/31/2025 1:30 PM EDT Office Visit [facility] OPTOMETRY [address] [place] [address] JakeFeli avery, OD [address] [place] [address] documented as of this encounter Goals Goal [...] documented as of this encounter Care Teams Hvac Manager Relationship Specialty Start Date End Date Vale Sales NP [address] [place] [address] PCP - General Family Medicine 12/12/23 documented as of this encounter
--- OUTSIDE RECORDS SUMMARY | 2025-01-10 12:08 | XMS_ITS | Encounter Summary ---
Author Organization [employer] Address [address] [place] [address] 7t [place] [address] Care Team Providers Care Car Body Inspector Name Role Phone Vale Sales NP Primary Care Provider [phone] Reason for Visit * Reason Onset Date Comments No Show 01/07/2025 Encounter Details Date Type Department Care Team ([facility] Contact Info) Description 01/07/2025 Telephone [facility] MEDICINE [address] [place], [place] [phone] Vale Sales NP [address] [place] [address] No Show Social History Tobacco Use Types Packs/Day Years [...] encounter Miscellaneous Notes * Telephone Encounter - Janie Garsia - 01/07/2025 2:00 PM EST Patient no show to OFFICE VISIT appointment on 01/07/25. documented in this encounter Plan of Treatment Upcoming Encounters Date Type Department Care Team (Late st Contact Info) Description 01/25/2025 10:00 AM EDT Medication Management [facility] MEDICINE [address] [place] [address] Carmen Yu, RaymondD [address] [place] [address] 03/31/2025 1:30 PM EDT Office Visit [facility] OPTOMETRY [address] [place] [address] Jake, Feli, OD [address] [place] [address] documented as of this encounter Goals Goal Patient Goal Type Associated Problems Recent Progress Patient-Stated? Author Blood Pressure < 140/90 Blood Pressure 120/80(2024 9:59 AM EST) Gen Arriaza Hemoglobin A1c < 7 Result Component 10(10/05/2024 1:44 PM EST) No Gen Vora documented as of this encounter Visit Diagnoses Not on filedocumented in this encounter Additional Health Concerns Assessment Noted Time PHQ-9 Depression Total Score: 0 07/23/20 3:50 PM EDT documented as of this encounter Care Teams Car Body Inspector Relationship Specialty Start Date End Date Vale Sales NP [address] [place] [address] PCP - General Family Medicine 12/12/23 documented as of this encounter
--- OUTSIDE RECORDS SUMMARY | 2025-01-10 12:09 | XMS_ITS | Clinical Summary ---
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 ([facility]) Use to check blood sugar twice daily 1 kit 02/01/20 23 Active FREESTYLE LITE test stripIndication s:Type 2 diabetes mellitus without complication, 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 ([facility]) TEST BLOOD SUGAR TWICE DAILY 100 each 11 02/01/20 23 Active TRUEplus Lancets 33G miscIndications :Type 2 diabetes mellitus without complication, unspecified whether retirement insulin use ([facility]) TEST BLOOD SUGAR TWICE DAILY 100 each 11 02/01/20 23 Active Continuous Blood Gluc Soil Conservationist (FreeStyle Bertin 2 [place]) deviceIndicatio ns:Type 2 diabetes mellitus without complication, without long-term current use of insulin ([facility]) Scan sensor every 8 hours 1 each 3 12/23/19 24 Active Alcohol Swabs (Alcohol Prep) 70 % padsIndications :Type 2 diabetes mellitus without complication, 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 ([facility]) USE TWICE DAILY TO TEST BLOOD SUGAR [...] 2 diabetes mellitus without complication, 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 14 tablet 01/10/20 25 Active azithromycin (Zithromax Z-Mayco) 250 MG tablet Take 2 tablets once on day 1, then 1 tablet 1x/day for 4 days. 6 tablet 01/10/20 25 Active Active Problems Problem Noted Date Diagnosed [...] home: Has upcoming dental hygiene appointment with [facility] dental. Chronic low back pain 12/27/2014 Hypertriglyceridemia [...] appointment 04/02/23 Diabetes mellitus type 2, uncomplicated ([facility]) - Primary ? Today: A1C 8.3 Glucose [...] Encounters Date Type Department Care Team Description 01/10/2025 10:00 AM EST Office Visit [facility] [address] [place] [phone] Acute cough (Primary Dx); Abnormal CXR (chest x-ray); Viral URI 01/09/2025 Refill [facility] [address] [place] [phone] Vale Sales NP Elevated blood pressure reading 01/07/2025 Telephone [facility] [address] [place] [address] Vale Sales NP No Show 12/29/[address] [address] Connie Cook MA Chart Prep 12/28/2024 Patient Outreach [facility] [address] [place], [place] [phone] Vale Sales NP Pre-visit Planning (SDOH negative, Tobacco screening negative. ) 12/13/2024 9:20 AM EST Office Visit [facility] [address] [address] Everett Quiñonez MD Abnormal chest x-ray (Primary Dx); Right-sided chest pain; Viral URI 12/13/2024 Telephone [facility] [address] [address] Everett Quiñonez MD ED expect 11/25/[address] [address] Laura Mendoza MA Feb. Recall 11/15/2024 Telephone [facility] [address] [place] [address] Sarah Smith, KEVAN 11/03/2024 Refill [facility] [address] [place] [phone] Vale Sales NP Elevated blood sugar; Pain 10/29/[address] [address] Vale Sales NP 10/18/[address] [address] Vale Sales NP Elevated blood pressure reading 10/18/2024 Refill [facility] [address] [place] [address] Name, MD Rupert Elevated blood pressure reading 10/11/2024 Refill [facility] [address] [place] [address] Jhoan Carey, ENTRY REP 10/11/2024 Refill [facility] [address] [place], [place] [phone] Name, MD Rupert Type 2 diabetes mellitus without complication, 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 ([facility]) from Last 3 Months Immunizations Name Administration [...] Sign Reading Time Taken Comments Blood Pressure 120/80 01/10/2025 9:59 AM EST Pulse 82 01/10/2025 9:59 AM EST Temperature 36.7 ??C (98 ??F) 01/10/2025 9:59 AM EST Respiratory Rate 18 01/10/2025 9:59 AM EST Oxygen Saturation 98% 01/10/2025 9:59 AM EST Inhaled Oxygen Concentration - - Weight 91.6 kg (202 lb) 01/10/2025 9:59 AM EST Height 182.9 cm (6') 01/10/2025 9:59 AM EST Body Mass Index 27.4 01/10/2025 9:59 AM EST Plan of Treatment Upcoming Encounters Date Type Department Care Team (Late st Contact Info) Description 01/25/2025 10:00 AM EDT Medication Management [facility] [address] [place], [place] [phone] Carmen Yu, PharmD [address] [place] [address] 03/31/2025 1:30 PM EDT Office Visit [facility] [address] [place], [place] [phone] Feli Joseph, OD [address] [place] [address] Health Maintenance Due Date Last Done Comments [...] 09/05/2015, Additional history exists Diabetes: Hemoglobin A1C 01/05/202510/05/ 024, 07/23/2024, 12/23/2023, Additional history exists Alcohol/Substance Use Screening 07/23/2025 07/23/2024 Depression Screening 07/23/2025 07/23/2024, 07/23/20 24 Dental X-Ray: Full Mouth 12/26/2025 12/25/2022 SDOH Screening 12/28/2025 12/28/2024 Tobacco Screening 01/10/2026 01/10/2025 Zoster Vaccines (1 of 2) 2028 DTaP/Tdap/Td Vaccines (3 - Td or Tdap) 06/14/2032 06/14/2022, 07/18/2010 RSV Patients and Patients Aged 60 years or older (1 - 1-dose 75+ series) 2053 HIV Screening Completed 01/24/2023 Hepatitis C Screening Completed 01/24/2023 Pneumococcal Vaccine: Pediatrics (0 to 5 Years) and At-Risk Patients (6 to 49) Years) Completed 01/30/2023, 06/02/2012 HIB Vaccines Aged [...] Diagnosis Comments XR CHEST 2 VIEWS Routine 01/10/2025 10:4 6 AM EST Acute cough Abnormal CXR (chest x-ray) POCT INFLUENZA B (ID NOW RAPID MOLECULAR) Routine 01/10/2025 10:18 AM EST Viral URI POCT INFLUENZA A (ID NOW RAPID MOLECULAR) Routine 01/10/2025 10:18 AM EST Viral URI POCT RAPID COVID ANTIGEN Routine 01/10/2025 10:18 AM EST Viral URI XR CHEST 2 VIEWS Routine 12/13/2024 9:56 [...] 01/07/2023 9 :30 AM EST Periodontal disease INTRAORAL - COMPLETE SERIES OF RADIOGRAPHIC IMAGES Routine 12/25/2022 10:00 AM EST Periodontal disease COMPREHENSIVE ORAL EVALUATION - NEW OR ESTABLISHED PATIENT Routine 12/25/2022 10:00 AM EST Periodontal disease from Last 3 Months or Most Recently Relevant to Health Maintenance Results * XR Chest 2 Views (01/10/2025 10:46 AM EST) Only the most recent of2 resultswithin the time period is included. Anatomical Region Laterality Modality Chest Radiographic Eryn ging 01/10/2025 10:4 6 AM EST Narrative 01/10/2025 11:27 AM EST ?[facility] ?[address] ?[place] [address] ?XRay Report ? Signed ? Patient: Frederick Leonardo,Ganesh ?M ?? R#: [id number] ? : 1980 ?Acct:[id number] ? Age/Sex: 44 / M ?ADM Date: 02/24/25 ? Loc: HO.HHCX ? Attending Dr: Everett Quiñonez MD ? Ordering Physician: EVERETT QUIÑONEZ MD ?? Date of Service: 01/10/25 ?? Procedure(s): XR chest 2V ?? Accession Number(s): [id number] ? cc: EVERETT QUIÑONEZ MD ? EXAMINATION: ?? XR CHEST ? CLINICAL INFORMATION: ?? COUGH ? COMPARISON: ?? 12/13/2024. ? TECHNIQUE: ?? 2 views of the chest were obtained. ? FINDINGS: ?? The cardiac, hilar, and mediastinal contours are normal. ? Lungs again demonstrate right lower lobe airspace disease, with a tiny ?? associated lateral pleural opacity likely representing effusion. There ?? is a suggestion of loculation. ?? The left lung is clear. ?? There is no pneumothorax or left pleural effusion. ? There is no focal osseous or soft tissue abnormality. ? XR/XR chest 2V ?? IMPRESSION: ?? 1. Right lower lobe pneumonia, either persistent or recurrent. Tiny ?? associated effusion with possible loculation. ? Electronically signed by: ??John Macedo MD ??01/10/2025 11:23 AM EST RP ? Dictated By: ?John Macedo MD ? Signed By: ?<Electronically signed by John Macedo MD in OV> ?01/10/25 1123 ? DD/ 1046 ? TD/TT: 01/10/25 1100 ? Disassembler Product: ? Procedure Note Dg, Image - 01/10/[address] [address] XRay Report Signed Patient: Edyta Brown R#: [id number] : 1980Acct:[id number] Age/Sex: 44 / MADM Date: 01/10/25 Loc: HO.HHCX Attending Dr: Everett Quiñonez MD Ordering Physician: EVERETT QUIÑONEZ MD Date of Service: 01/10/25 Procedure(s): XR chest 2V Accession Number(s): [id number] cc: EVERETT QUIÑONEZ MD EXAMINATION: XR CHEST CLINICAL INFORMATION: COUGH COMPARISON: 12/13/2024. TECHNIQUE: 2 views of the chest were obtained. FINDINGS: The cardiac, hilar, and mediastinal contours are normal. Lungs again demonstrate right lower lobe airspace disease, with a tiny associated lateral pleural opacity likely representing effusion. There is a suggestion of loculation. The left lung is clear. There is no pneumothorax or left pleural effusion. There is no focal osseous or soft tissue abnormality. XR/XR chest 2V IMPRESSION: 1. Right lower lobe pneumonia, either persistent or recurrent. Tiny associated effusion with possible loculation. Electronically signed by: John Macedo MD 01/10/2025 11:23 AM EST Dictated By: John Macedo MD Signed By: <Electronically signed by John Macedo MD in OV> 01/10/25 1123 DD/ 1046 TD/TT: 01/10/25 1100 Disassembler Product: us Everett Quiñonez MD IMG XR PROCEDURES Final Result * Influenza B (ID NOW Rapid Molecular) (01/10/2025 10:18 AM EST) Only the most recent of2 resultswithin the time period is included. Influenza B Negative Negative, Indeterminate [facility] Swab 01/10/2025 10:1 8 AM EST us Everett Quiñonez MD POINT OF CARE TEST ENTER/EDIT OR DERABLES Final Result Performing Organization Address [facility] Co de Phone Number [facility] [address] [place] [phone] * Influenza A (ID NOW Rapid Molecular) (01/10/2025 10:18 AM EST) Only the most recent of2 resultswithin the time period is included. Influenza A Negative Negative, Indeterminate [facility] Swab 01/10/2025 10:1 8 AM EST us Everett Quiñonez MD POINT OF CARE TEST ENTER/EDIT OR DERABLES Final Result Performing Organization Address [facility] Co de Phone Number [facility] [address] [place] [phone] * POCT Rapid COVID Ag (01/10/2025 10:18 AM EST) Only the most recent of2 resultswithin the time period is included. Rapid COVID Ag Negative [facility] Swab 01/10/2025 10:1 8 AM EST Everett Quiñonez MD POINT OF CARE TEST ENTER/EDIT OR DERABLES Final Result Performing Organization Address City/[facility] Co de Phone Number [facility] [address] [place] [phone] * (ABNORMAL) POCT HGB A1C (10/05/2024 1:44 PM EST) Hemoglobin A1C 10.0(A) 4.0 - 6.0 % QC Media Lot # [id number] Lot# Expiration Date Blood 10/05/2024 1:44 PM EST Vale Sales NP POINT OF CARE TEST ENTER/EDIT OR DERABLES Final Result * Albumin, Random Urine W/Creatinine (07/01/2023 10:20 AM EDT) Creatinine, Urine 69.61 mg/dL [facility] Microalbumin Urine <5.0 mg/L [facility] Microalbum Creatinine Ratio Ur TNP ug/mg cr [facility] Comment:Unable to calculate albumin/creatinine ratio due to lowmicroalbumin or creatinine result. 07/01/2023 10:2 0 AM EDT 07/01/2023 11:33 AM EDT B[facility] URINE ORDERABLES Final Res ult Performing Organization Address [facility] Co de Phone Number [facility] [address] [place] [address] [phone] * HIV-1 RNA, Quantitative, Real-Time PCR with Reflex to Genotype (RTI, PI, Integrase) (01/24/2023 10:31 AM EST) HIV 1 RNA, QN PCR NOT DETECTED copies/mL [facility], HIV 1 RNA, QN PCR NOT DETECTED Log copies/mL [facility], Comment: REFERENCE RANGE: NOT DETECTED copies/mL ?NOT DETECTED ??Log copies/mL This test was performed using Real-Time Polymerase Chain Reaction. Reportable range is 20 to 10,000,000 copies/mL (1.30-7.00 Log copies/mL). 01/24/2023 10:3 1 AM EST 01/24/2023 10:32 AM EST Narrative [facility] - 01/27/2023 2:49 PM EDT FASTING:YES FASTING: YES Bhanu Neville [facility] LAB BLOOD ORDERABLES Final Res ult [facility] [address], [place] [address] [employer], [address] [place] [address] * Hepatitis C Antibody with Reflex to HCV, RNA, Quantitative, Real-Time PCR (01/24/2023 10:31 AM EST) Hepatitis C Antibody NON-REACT MARCO NON-REACT MARCO [employer] [place] [facility] Index 0.08 <1.00 [employer] [place] [facility] Comment: HCV antibody was non-reactive. There is no laboratory evidence of HCV infection. In most cases, no further action is required. However, if recent HCV exposure is suspected, a test for HCV RNA (test code 87527) is suggested. For additional information please refer to http://education.[employer]/faq/UJA52q5 (This link is being provided for informational/ educational purposes only.) Blood Venous blood specimen / Unknown 01/24/2023 10:31 AM EST 01/24/2023 10:32 AM EST Narrative [facility] - 01/27/2023 2:49 PM EDT FASTING:YES FASTING: YES [facility] LAB BLOOD ORDERABLES Final Res ult [facility] [address] [facility], [address]rd [address], [place] [address] [employer] [place] [employer] [address] [facility], (N[address]2) [place] [address] * (ABNORMAL) Lipid Panel, Standard (01/24/2023 10:30 AM EST) [facility] Cholesterol, Total 125 <200 mg/dL [employer] [place] [employer] HDL Cholesterol 35(L) > OR = 40 mg/dL [employer] [place] [employer] Triglycerides 167(H) <150 mg/dL [employer] [place] [employer] LDL Cholesterol 65 mg/dL (calc) [employer] [place] [employer] Comment: Reference range: <100 Desirable range <100 mg/dL for primary prevention; ?? <70 mg/dL for patients with CHD or diabetic patients with > or = 2 CHD risk factors. LDL-C is now calculated using the José-Oneill calculation, which is a validated novel method providing better accuracy than the Friedewald equation in the estimation of LDL-C. José SS et al. RICHA. 2013;310(19): 6822-7752 (http://education.[employer].Spaces 2 Host/faq/ELP627) Chol/HDLC Ratio 3.6 <5.0 (calc) [employer] [place] [employer] Non-HDL Cholesterol 90 <130 mg/dL (calc) [employer] [place] [employer] Comment: For patients with diabetes plus 1 major ASCVD risk factor, treating to a non-HDL-C goal of <100 mg/dL (LDL-C of <70 mg/dL) is considered a therapeutic option. Blood Venous blood specimen / Unknown 01/24/2023 10:30 AM EST 01/24/2023 10:31 AM EST Narrative [facility] - 01/24/2023 9:24 PM EST FASTING:YES FASTING: YES [facility] LAB BLOOD ORDERABLES Final Res ult [facility] [address] [facility], 3rd Fl, [place] [address] [facility] [place] [facility] [address] [facility], ([address]) [place] [address] from Last 3 Months or Most Recently Relevant to Health Maintenance Insurance [facility] - [facility] Care Teams Group Home Worker Relationship Specialty Start Date End Date Vale Sales NP [address] [place] [phone] PCP - General Family Medicine 12/12/23
--- OUTSIDE RECORDS SUMMARY | 2025-01-10 12:09 | XMS_ITS | Encounter Summary ---
Author Organization [employer] Address [address] [facility] 7t [place] [address] Care Team Providers Care Patients Transporter Name Role Phone Rosalindacici Vale KRYSTAL Primary Care Provider [phone] Encounter Details Date Type Department Care Team ([facility] Contact Info) Description 01/10/2025 10:00 AM EST Office Visit [facility] [address] [place], [place] [phone] Acute cough (Primary Dx); Abnormal CXR (chest x-ray); Viral URI Social History Tobacco Use Types [...] Mass Index 27.4 01/10/2025 9:59 AM EST documented in this encounter Plan of Treatment Upcoming Encounters Date Type Department Care Team (Late st Contact Info) Description 01/25/2025 10:00 AM EDT Medication Management [facility] [address] [place] [address] Carmen Yu, PharmD [address] [place] [address] 03/31/2025 1:30 PM EDT Office Visit [facility] [address] [place] [address] Feli Joseph, OD [address] [place] [address] documented as of this encounter Goals Goal [...] Routine 01/10/2025 10:18 AM EST Viral URI documented in this encounter Results * XR Chest 2 Views (01/10/2025 10:46 AM EST) Anatomical Region Laterality Modality Chest Radiographic Eryn ging 01/10/2025 10:4 6 AM EST Narrative 01/10/2025 11:27 AM EST ?[facility] ?[address] ?[place] [address] ?XRay Report ? Signed ? Patient: Frederick Leonardo,Ganesh ?M ?? R#: [id number] ? : 1980 ?Acct:[id number] ? Age/Sex: 44 / M ?ADM Date: 01/10/ ? Loc: HO.HHCX ? Attending Dr: Everett Quiñonez MD ? Ordering Physician: EVERETT QUIÑONEZ MD ?? Date of Service: 01/10/25 ?? Procedure(s): XR chest 2V ?? Accession Number(s): [id number] ? cc: EVERETT QUIÑONEZ MD ? EXAMINATION: [...] DD/ 1046 ? TD/TT: 01/10/25 1100 ? Caterpillar Mechanic: ? Procedure Note Donotuseinterpreter, Image - 01/10/[address] [address] XRay Report Signed Patient: Edyta Brown R#: [id number] : 1980Acct:[id number] Age/Sex: 44 / MADM Date: 01/10/25 Loc: HO.HHCX Attending Dr: Everett Quiñonez MD Ordering Physician: EVERETT QUIÑONEZ MD Date of Service: 01/10/25 Procedure(s): XR chest 2V Accession Number(s): [id number] cc: EVERETT QUIÑONEZ MD EXAMINATION: XR CHEST [...] MD Signed By: <Electronically signed by John Macdeo MD in OV> 01/10/25 1123 DD/ 1046 TD/TT: 01/10/25 1100 Caterpillar Mechanic: Everett Quiñonez MD IMG XR PROCEDURES Final Result * Influenza B (ID NOW Rapid Molecular) (01/10/2025 10:18 AM EST) Influenza B Negative Negative, Indeterminate [facility] Swab 01/10/2025 10:1 8 AM EST us Everett Quiñonez MD POINT OF CARE TEST ENTER/EDIT OR DERABLES Final Result Performing Organization Address [facility] Co de Phone Number [facility] [address] [place] [phone] * Influenza A (ID NOW Rapid Molecular) (01/10/2025 10:18 AM EST) Influenza A Negative Negative, Indeterminate [facility] Swab 01/10/2025 10:1 8 AM EST Everett Quiñonez MD POINT OF CARE TEST ENTER/EDIT OR DERABLES Final Result Performing Organization Address [facility] Co de Phone Number [facility] [address] [place] [phone] * POCT Rapid COVID Ag (01/10/2025 10:18 AM EST) Rapid COVID Ag Negative [facility] Swab 01/10/2025 10:1 8 AM EST us Everett Quiñonez MD POINT OF CARE TEST ENTER/EDIT OR DERABLES Final Result Performing Organization Address [facility]/ZIP Co de Phone Number [facility] [address] [place] [phone] documented in this encounter Visit Diagnoses Diagnosis Acute cough- Primary Abnormal CXR (chest x-ray) Nonspecific (abnormal) findings on radiological and other examination of lung field Viral URI Acute upper respiratory infections of unspecified site documented in this encounter Additional Health Concerns Assessment Noted Time PHQ-9 Depression Total Score: 0 07/23/20 24 3:50 PM EDT documented as of this encounter Care Teams Patients Transporter Relationship Specialty Start Date End Date Vale Sales NP [address] [place] [phone] PCP - General Family Medicine 12/12/23 documented as of this encounter
--- OUTSIDE RECORDS SUMMARY | 2025-01-10 12:09 | XMS_ITS | Encounter Summary ---
Author Organization [employer] Address [address] [facility] 7t [place] [address] Care Team Providers Care Silverware Washer Name Role Phone Vale Sales NP Primary Care Provider [phone] Encounter Details Date Type Department Care Team ([facility] st Contact Info) Description 08/04/2024 Telephone [facility] [address] [place], [place] [phone] Vale Sales NP [address] [place], [place] [phone] Social History Tobacco Use Types Packs/Day Years [...] Description 01/25/2025 10:00 AM EDT Medication Management [facility] [address] [place] [address] Carmen Yu PharmD [address] [place] [address] 03/31/2025 1:30 PM EDT Office Visit [facility] [address] [place] [address] Feli Joseph, OD [address] [place] [address] documented as of this encounter Goals Goal [...] documented as of this encounter Care Teams Silverware Washer Relationship Specialty Start Date End Date Vale Sales NP [address] [place] [address] PCP - General Family Medicine 12/12/23 documented as of this encounter
--- OUTSIDE RECORDS SUMMARY | 2025-01-10 12:09 | XMS_ITS | Encounter Summary ---
Author Organization [employer] Address [address] [facility] 7t [place] [address] Care Team Providers Care Behavioral Health Assistant Name Role Phone Vale Sales KRYSTAL Primary Care Provider [phone] Reason for Visit * Reason Comments Med Refill Encounter Details Date Type Department Care Team ([facility] st Contact Info) Description 10/18/2024 Refill [facility] [address] [place], [place] [phone] Name, MD Rupert [address] [place] [phone] Elevated blood pressure reading Social History Tobacco [...] Description 01/25/2025 10:00 AM EDT Medication Management [facility] [address] [place] [address] Carmen Yu, PharmD [address] [place] [address] 03/31/2025 1:30 PM EDT Office Visit [facility] [address] [place] [address] Jake, Feli, OD [address] [place] [address] documented as of this encounter Goals Goal [...] documented as of this encounter Care Teams Behavioral Health Assistant Relationship Specialty Start Date End Date Vale Sales NP [address] [place] [address] PCP - General Family Medicine 12/12/23 documented as of this encounter
--- OUTSIDE RECORDS SUMMARY | 2025-01-10 12:09 | XMS_ITS | Encounter Summary ---
Author Organization [employer] Address [address] [facility] 7t [place] [address] Care Team Providers Care International Sourcing Manager Name Role Phone Henrry Vale RICE Primary Care Provider [phone] Reason for Visit * Reason Onset Date Comments ED expect 12/13/2024 Encounter Details Date Type Department Care Team ([facility] Contact Info) Description 12/13/2024 Telephone [facility] [address] [place], [place] [phone] Everett Quiñonez MD 230 [place], [place] [phone] ED expect Social History Tobacco Use Types [...] 12/13/2024 10:26 AM EST TC placed to [facility] ED for an expect by private car spoke to Pamela and discussed the message below, CXR done in [facility] read by me appears to show opacification of right lower lung field vs elevated right hemidiaphragm. There is no radiology reading available at this time; he is being referred to the ED for further evaluation. documented in this encounter Plan of Treatment Upcoming Encounters Date Type Department Care Team (Late st Contact Info) Description 01/25/2025 10:00 AM EDT Medication Management [facility] [address] [place] [address] Carmen Yu, PharmD 230 [place] [address] 03/31/2025 1:30 PM EDT Office Visit [facility] [address] [place] [address] Feli Joseph, OD 230 [place] [address] documented as of this encounter Goals Goal [...] documented as of this encounter Care Teams International Sourcing Manager Relationship Specialty Start Date End Date Vale Sales NP 230 [place] [address] PCP - General Family Medicine 12/12/23 documented as of this encounter
--- OUTSIDE RECORDS SUMMARY | 2025-01-10 12:09 | XMS_ITS | Encounter Summary ---
Author Organization [employer] Address [address] [place] [address] 7t [place] [address] Care Team Providers Care Aquatic Habitat Biologist Name Role Phone Logansadaf Carey LUIS F Primary Care Provider [phone] Vale Sales NP Primary Care Provider [phone] Reason for Visit * Reason Comments Med Refill Encounter Details Date Type Department Care Team (Late st Contact Info) Description 08/13/2023 Refill [facility] [address] [place], [place] [phone] Bhanu Neville AGNP Hypertriglyceridemia Social History Tobacco [...] Department Care Team (Late Contact Info) Description 01/25/2025 10:00 AM EDT Medication Management [facility] MED[facility] 230 [place], [place] [phone] Carmen Yu PharmD 230 [place], [place] [phone] 03/31/2025 1:30 PM EDT Office Visit [facility] [address] [place], [place] [phone] Feli Joseph, OD 230 [place] [address] documented as of this encounter Visit Diagnoses Diagnosis Hypertriglyceridemia Pure hyperglyceridemia documented in this encounter Additional Health Concerns Assessment Noted Time PHQ-9 Depression Total Score: 9 04/02/20 23 2:32 PM EDT documented as of this encounter Care Teams Aquatic Habitat Biologist Relationship Specialty Start Date End Date Carey Staples FNP 230 [place] [address] PCP - General Family Medicine 08/07/23 12/11/23 Vale Sales NP 230 [place] [address] PCP - General Family Medicine 12/12/23 documented as of this encounter
--- OUTSIDE RECORDS SUMMARY | 2025-01-10 12:09 | XMS_ITS | Encounter Summary ---
Author Organization [employer] Address [address] [facility] 7t [place] [address] Care Team Providers Care Cook Supervisor Name Role Phone Vale Sales NP Primary Care Provider [phone] Reason for Visit * Reason Comments Med Refill Encounter Details Date Type Department Care Team ([facility] st Contact Info) Description 06/23/2024 Refill [facility] [address] [place], [place] [phone] Vale Sales NP [address] [place], [place] [phone] Pain Social History Tobacco Use Types Packs/Day [...] Description 01/25/2025 10:00 AM EDT Medication Management [facility] 230 [place] [address] Carmen Yu, PharmD 230 [place] [address] 03/31/2025 1:30 PM EDT Office Visit [facility] [address] [place] [address] Jake, Feli, OD 230 [place] [address] documented as of this encounter Goals Goal [...] documented as of this encounter Care Teams Cook Supervisor Relationship Specialty Start Date End Date Vale Sales NP 230 [place] [address] PCP - General Family Medicine 12/12/23 documented as of this encounter
--- OUTSIDE RECORDS SUMMARY | 2025-01-10 12:09 | XMS_ITS | Encounter Summary ---
Author Organization [email or web address] Address [address] [place] [address] 7t [place] [address] Care Team Providers Care Engineering Program Analyst Name Role Phone Neville Bhanu AGNP Primary Care Provider Unavail Carey FloresP Primary Care Provider [phone] Vale Sales NP Primary Care Provider [phone] Encounter Details Date Type Department Care Team (Late Contact Info) Description 12/31/2022 Abstract [facility] [address] [place] [address] Elver Montiel DDS [address] [place] [address] Social History Tobacco Use Types Packs/Day Years [...] Description 01/25/2025 10:00 AM EDT Medication Management [facility] [address] [place] [address] YuCarmen PharmD 230 [place] [address] 03/31/2025 1:30 PM EDT Office Visit [facility] [address] [place] [address] Feli Joseph, OD 230 [place] [address] documented as of this encounter Visit Diagnoses Not on filedocumented in this encounter Care Teams Engineering Program Analyst Relationship Specialty Start Date End Date Bhanu Neville AGNP PCP - General Family Medicine 11/19/22 08/06/23 Carey Staples FNP [address] [place] [address] PCP - General Family Medicine 08/07/23 12/11/23 Vale Sales NP 230 [place] [address] PCP - General Family Medicine 12/12/23 documented as of this encounter
--- OUTSIDE RECORDS SUMMARY | 2025-01-10 12:09 | XMS_ITS | Encounter Summary ---
Author Organization [employer] Address [address] [place] [address] [address], [place] [address] Care Team Providers Care Silvering Department Supervisor Name Role Phone Carey Staples Primary Care Provider [phone] Vale Sales NP Primary Care Provider [phone] Encounter Details Date Type Department Care Team (Late Contact Info) Description 08/11/2023 Telephone [facility] [address] [place] [address] Carey Staples FNP 230 [place] [address] Social History Tobacco Use Types Packs/Day Years [...] Description 01/25/2025 10:00 AM EDT Medication Management [facility] 230 [place] [address] Carmen Yu, RaymondD 230 [place], [place] [phone] 03/31/2025 1:30 PM EDT Office Visit [facility] [address] [place], [place] [phone] Feli Joseph, OD 230 [place] [address] documented as of this encounter Visit Diagnoses Not on filedocumented in this encounter Additional Health Concerns Assessment Noted Time PHQ-9 Depression Total Score: 9 04/02/20 23 2:32 PM EDT documented as of this encounter Care Teams Silvering Department Supervisor Relationship Specialty Start Date End Date Carey Staples FNP 230 [place] [address] PCP - General Family Medicine 08/07/23 12/11/23 Vale Sales NP 230 [place] [address] PCP - General Family Medicine 12/12/23 documented as of this encounter
== END 2025-01-10 10:45 | disposition home or self-care (01) ==
LOC: HO.HHCX 10:44
PROVIDERS: Visit Provider Emergency Medicine
DX: R93.89 Abnormal findings on diagnostic imaging of other specified body structures (principal); R05.1 Acute cough
CPT/HCPCS: 71046

== ENCOUNTER → 2025-01-10 10:46 | Outpatient (BNV) | payer OTHER, SELFPAY | PROVIDERS: Visit Provider Radiology Diagnostic Radiology | DX: R05.9 Cough, unspecified (principal) | CPT/HCPCS: 71046 ==

== ENCOUNTER 2025-02-07 09:45 | Outpatient (REF) | payer OTHER, SELFPAY ==
--- NOTE | ~2025-02-07 | XR_ITS ---
EXAMINATION: XR CHEST 2 VIEWS HISTORY: COUGH COMPARISON: Comparison is made with the prior examination dated 01/10/2025. FINDINGS: PA and lateral views of the chest are submitted. There is a persistent opacity in the right lower lobe compatible with pneumonia. This appears slightly more prominent than on the prior study. There is a trace associated right pleural effusion. The left lung is clear. There is no left pleural effusion, pneumothorax, or pulmonary vascular congestion. The heart is normal in size. The bones are intact. XR/XR chest 2V IMPRESSION: Right lower lobe pneumonia which is more prominent than on the prior study. Associated trace pleural effusion. Continued follow-up is recommended to document resolution. Electronically signed by: Franco Keane MD 02/07/2025 10:27 AM EDT
[2025-02-07 11:47] LABS: MANUAL DIFF FLAG NO
[2025-02-07 12:00] LABS: Basophils Absolute Auto 0.1 X10*3/uL (0.0-0.2); Basophils Percent Auto 0.6 % (0-2); Eosinophils Absolute Auto 0.1 X10*3/uL (0.0-0.4); Eosinophils Percent Auto 1.3 % (0-4); Hematocrit 41.8 % (42.0-52.0); Lymphocytes Percent Auto 19.4 % (20-40); Mean Corpuscular HGB Conc 33.5 g/dl (31.0-36.0); Mean Corpuscular Hemoglobin 29.7 pg (27.0-33.0); Mean Corpuscular Volume 88.6 fL (80.0-98.0); Mean Platelet Volume 11.5 fL (9.4-12.4); Monocytes Absolute Auto 0.7 X10*3/uL (0.1-1.2); Neutrophils Absolute Auto 7.4 x10*3/uL (2.0-8.3); Neutrophils Percent Auto 70.7 % (45-73); Platelet Count 295 X10*3/uL (160-400); Red Blood Count 4.72 X10*6/uL (4.60-5.80); Red Cell Distribution Width 12.4 % (11.0-16.0); White Blood Count 10.5 X10*3/uL (4.8-10.8)
[2025-02-07 12:13] LABS: Estimated Average Glucose 260 mg/dL; Hemoglobin A1C 343.3468 umol/L; Hemoglobin A1c % 10.7 % (<6.0); Total Hemoglobin (HGBA1C) 3692.8628 umol/L
[2025-02-07 12:26] LABS: Alanine Aminotransferase 14 U/L (0-40); Albumin Level 3.4 g/dL (3.5-5.0); Alkaline Phosphatase 109 U/L (39-117); Anion Gap 10 (12-20); Aspartate Amino Transferase 21 U/L (5-37); Bilirubin Total 0.3 mg/dL (0.0-1.0); Blood Urea Nitrogen 9 mg/dL (9-16); Calcium 9.6 mg/dL (8.4-10.2); Carbon Dioxide 26 mmol/L (22-29); Chloride 103 mmol/L (96-108); Estimated Glomerular Filt Rate > 60; Glucose Random 346 mg/dL (60-115); Potassium 4.2 mmol/L (3.3-5.1); Sodium 135 mmol/L (135-145); Total Protein 7.6 g/dL (6.5-8.0)
== END 2025-02-07 09:46 | disposition home or self-care (01) ==
LOC: HO.HHCX 09:45
PROVIDERS: Nurse Practitioner Family; Visit Provider Emergency Medicine
DX: R05.9 Cough, unspecified (principal); E11.65 Type 2 diabetes mellitus with hyperglycemia; Z11.1 Encounter for screening for respiratory tuberculosis
CPT/HCPCS: 36415; 71046; 80053; 83036; 85025; 86481

== ENCOUNTER → 2025-02-07 09:46 | Outpatient (BNV) | payer OTHER, SELFPAY | PROVIDERS: Visit Provider Radiology Diagnostic Radiology | DX: J18.9 Pneumonia, unspecified organism (principal) | CPT/HCPCS: 71046 ==

== ENCOUNTER 2025-02-07 10:06 | Outpatient (REF) | payer OTHER, SELFPAY | END 2025-02-07 10:07 | disposition home or self-care (01) | LOC: HO.HHCL 10:06 | PROVIDERS: Visit Provider Emergency Medicine | DX: Z13.89 Encounter for screening for other disorder (principal) ==

== ENCOUNTER 2025-04-06 10:04 | Outpatient (AMB) | payer OTHER, SELFPAY ==
--- NOTE | 2025-04-06 10:17 | A.OFFVIS_ITS ---
Vital Signs 04/06/25 10:18 Height 6 ft Weight 189 lb 9.561 oz BMI 25.7 BP 92/54 L Blood Pressure Location Lt brachial Position Sitting Pulse 76 Pulse Source Pulse Oximeter Pulse Oximetry (%) 97 Oxygen Delivery Method Room Air Intake Visit Reasons: cough Intake Note: pt is here as a new patient for a cough that is better but he does have phlegm Wallpaper Printer Helper Required: No Allergies lactose Adverse Reaction (Intermediate, Verified 04/06/25 10:43) Diarrhea Medication List - Last Reconciled 04/06/25 by Bing Helm MD albuterol sulfate 90 mcg/actuation inhalation bisacodyl (Dulcolax (bisacodyl)) 10 mg (2 x 5 mg) PO ONCE 1 day cyclobenzaprine 5 mg PO TID PRN dulaglutide (Trulicity) mg subcut fenofibrate 54 mg PO DAILY gabapentin 100 mg PO TID glipizide ER 5 mg PO DAILY ibuprofen 600 mg PO Q6H PRN lisinopril 2.5 mg PO DAILY metformin 1,000 mg PO BID polyethylene glycol 3350 (Miralax) 238 grams PO ONCE Do you need a note to return to daycare/school/sports/work: No HPI HPI cough: Details: This 44 years old gentleman is being seen for the 1st time for pulmonary evaluation and follow-up. He is a smoker starting from age 17 and smokes about half packet of cigarettes a day. He started having discomfort in the right lower chest a few months ago, also had increased cough, .seen in the emergency room Had a chest x-ray which showed consolidation in the right lower lobe. Was treated with a course of antibiotics. A repeat chest x-ray about a month ago showed that the Density was smaller but still present . He is in the process of cutting down the number of cigarettes and say is he is now down to 3-5 cigarettes a day. He also smokes 3-4 joints of marijuana daily. Cough is minimal mostly in the mornings. He has no significant shortness of breath . He was referred for pulmonary evaluation because of persistent radiologic abnormality in the right lower lobe. [facility] Medical History Smoker Pneumonia Macular degeneration Hypertension Diabetes type 2, controlled Social History Alcohol intake: current Alcohol intake frequency: a few times a week Comment: weekend Patient Tobacco Use Status: Current everyday Tobacco user Cigarette Packs Per Day: 0.25 Cigarettes Per Day: 2 Substance Use Type: Marijuana Review of Systems Const All systems reviewed & are unremarkable except as noted in HPI and below Eyes Reports as per HPI ENT Reports no additional complaints Card Denies chest pain, Denies syncope and Denies leg edema Resp Reports as per HPI GI Reports constipation Reports no additional complaints Musc Reports no additional complaints Skin/Breast Reports system reviewed and no additional complaints, except as documented Neuro Reports no additional complaints and Denies syncope Psych Reports no additional complaints Endo Reports other (Diabetes mellitus) Marlon/Lymph Reports no additional complaints Aller/Immun Reports no additional complaints Physical Exam Vital Signs: Last Vital Signs Pulse 76 04/06/25 10:18 BP 92/54 L 04/06/25 10:18 Pulse Ox 97 04/06/25 10:18 Oxygen Delivery Method Room Air 04/06/25 10:18 BMI result Body Mass Index 25.7 Const General: healthy appearing, comfortable, no acute distress, alert and awake Orientation/consciousness: patient oriented x3 HEENT Head: Yes normal to inspection General nose exam: No nasal polyps present and No nasal discharge present Face and sinus: Yes sinuses nontender Mouth: oropharynx normal Throat: Yes posterior oropharynx normal Eyes General: appearance normal, both eyes and all related structures Neck Neck: Yes normal visual inspection, Yes no lymphadenopathy, Yes trachea midline and Yes no JVD Thyroid: Thyroid normal Chest Chest palpation & inspection: normal inspection of the chest, normal palpation of entire chest wall and no tenderness Resp Other: Chest is symmetrical Percussion note resonant. Breath sounds are slightly distant with prolonged expiratory phase. No crepitations or wheezes are heard. Cardio Palpation: normal PMI Rate: regular rate Rhythm: regular rhythm Heart sounds: no gallops and no murmurs Peripheral pulses: Peripheral pulses 2+ throughout GI Palpation (GI): Soft to palpation, nontender, No hepatosplenomegaly present and no masses Auscultation: normal bowel sounds Back/Spine/Pelvis Thoracic/Lumbar Spine: thoracic and lumbar spine normal to inspection Skin General skin exam: no rashes or lesions noted Neuro General: patient oriented x3 and no focal motor deficits Cranial nerves: Yes CN's II-XII intact bilaterally Extrem General: Yes normal to inspection, Yes no clubbing, cyanosis or edema and Yes no calf tenderness Psych Speech and movement: Normal speech and movement present Results Reviewed Results Reviewed: CHEST XRA 02/07/25 IMPRESSION: Right lower lobe pneumonia which is more prominent than on the prior study. Associated trace pleural effusion. Continued follow-up is recommended to document resolution. Assessment & Plan Assessment & Plan (1) Pneumonia: Comment: Pneumonia right lower lobe, clinically resolved but unresolved, radiologically Code(s): J18.9 - Pneumonia, unspecified organism Category: Medical Plan: Repeat chest x-ray today. If the abnormality is persistent then proceed with CT scan of the chest. (2) Smoker: Comment: Lifelong smoker since age 17. Trying to cut down the number of cigarettes. Code(s): F17.200 - Nicotine dependence, unspecified, uncomplicated Category: Social Hx Plan: Talked to him at length and convinced him to stop smoking or at least cut down the number of cigarettes. Risks of continued smoking explained to him.. Pulmonary function test . Ordered Orders: Orders XR chest 2V Today J18.9 - Pneumonia, unspecified organism PFT pulmonary function test Today F17.200 - Nicotine dependence, unspecified, uncomplicated, J18.9 - Pneumonia, unspecified organism Coding Level of Care Code New Pt Level 4 (63447) Diagnoses Pneumonia J18.9 Smoker F17.200
[2025-04-06 10:18] VITALS: BP 92/54; PULSE 76; O2SAT 97; BMI 25.7
--- OUTSIDE RECORDS SUMMARY | 2025-04-06 11:32 | XMS_ITS | Encounter Summary ---
Author Organization [employer] Address [address] [facility] 7t [place] [address] Care Team Providers Care Medical Or Surgical Instrument Maker Name Role Phone Vale Sales NP Primary Care Provider [phone] Carmen Yu PharmD Unavailable [phone] Reason for Visit * Reason Comments Med Refill Encounter Details Date Type Department Care Team ([facility] Contact Info) Description 01/29/2024 Refill [facility] [address] [place], [place] [phone] Carey Staples FNP [address] [place] [address] Pain Social History Tobacco Use Types Packs/Day [...] Care Team (Late st Contact Info) Description 04/07/2025 11:30 AM EDT Medication Management [facility] [address] [place] [address] Carmen Yu, Brissa [address] [place] [address] 04/08/2025 2:15 PM EDT Office Visit [facility] [address] [place] [address] Name, MD Rupert [address] [place] [address] 04/19/2025 11:30 AM EDT Office Visit [address] [address] Vale Sales NP [address] [place] [address] 07/11/2025 2:00 PM EDT Office Visit [facility] ADULT DENTAL [address] [place] [address] Miley Jones documented as of this encounter Goals Goal Patient Goal Type Associated Problems Recent Progress Patient-Stated? Author Blood Pressure < 140/90 Blood Pressure 152/78(2024 1:07 PM EDT) No Gen [facility] Hemoglobin A1c < 7 Result Component 10.7(02/08/20 10:09 AM EDT) No Gen [facility] documented as of this encounter Visit Diagnoses Diagnosis Pain Generalized pain documented in this encounter Additional Health Concerns Assessment Noted Time PHQ-9 Depression Total Score: 9 04/02/20 23 2:32 PM EDT documented as of this encounter Care Teams Medical Or Surgical Instrument Maker Relationship Specialty Start Date End Date Vale Sales NP 230 [place] [address] PCP - General Family Medicine 12/12/23 Carmen Yu PharmD 230 [place] [address] Pharmacist Internal Medicine 02/22/25 documented as of this encounter
--- OUTSIDE RECORDS SUMMARY | 2025-04-06 11:32 | XMS_ITS | Encounter Summary ---
Author Organization [employer] Address [address] [place] [address] 7t [place] [address] Care Team Providers Care Mine Inspector Federal Name Role Phone LoganCarey talavera BARK SPUDDER Primary Care Provider [phone] Vale Sales NP Primary Care Provider [phone] Carmen Yu PharmD Unavailable [phone] Reason for Visit * Reason Comments Med Refill Encounter Details Date Type Department Care Team ([facility] Contact Info) Description 08/13/2023 Refill [facility] 230 [place], [place] [phone] Bhanu Neville AGNP Hypertriglyceridemia Social History Tobacco [...] Upcoming Encounters Date Type Department Care Team ([facility] Contact Info) Description 04/07/2025 11:30 AM EDT Medication Management [facility] 230 [place], [place] [phone] Carmen Yu, PharmD 230 [place], [place] [phone] 04/08/2025 2:15 PM EDT Office Visit [facility] [address] [facility] [place] [address] Name, MD Rupert [address] [facility] [place] [address] 04/19/2025 11:30 AM EDT Office Visit [facility] [place] [address] Vale Sales NP [address] [facility] [place] [address] 07/11/2025 2:00 PM EDT Office Visit [facility] [place] [address] Miley Jones documented as of this encounter Visit Diagnoses Diagnosis Hypertriglyceridemia Pure hyperglyceridemia documented in this encounter Additional Health Concerns Assessment Noted Time PHQ-9 Depression Total Score: 9 04/02/20 2:32 PM EDT documented as of this encounter Care Teams Mine Inspector Federal Relationship Specialty Start Date End Date Carey Staples FNP [facility] [place] [address] PCP - General Family Medicine 08/07/23 12/11/23 [place] [address] PCP - General Family Medicine 12/12/23 [place] [address] Pharmacist Internal Medicine 02/22/25 documented as of this encounter
--- OUTSIDE RECORDS SUMMARY | 2025-04-06 11:32 | XMS_ITS | Encounter Summary ---
Author Organization [employer] Address [address] [facility] 7t [place] [address] Care Team Providers Care Travel Med Surg Rn Name Role Phone Jamin Bhanu AGNP Primary Care Provider Unavail able Carey StaplesP Primary Care Provider [phone] Vale Sales NP Primary Care Provider [phone] Carmen Yu PharmD Unavailable [phone] Encounter Details Date Type Department Care Team ([facility] Contact Info) Description 12/31/2022 Abstract [facility] ADULT DENTAL [address] [place] [address] Elver Montiel DDS [address] [place] [address] Social History Tobacco Use Types Packs/Day Years [...] Department Care Team ([facility] Contact Info) Description 04/07/2025 11:30 AM EDT Medication Management [facility] MEDICINE [address] [place] [address] [place] [address] 04/08/2025 2:15 PM EDT Office Visit [facility] [place] [address] Name, [place] [address] 04/19/2025 11:30 AM EDT Office Visit [facility] [place] [place] [address] [place] [address] 07/11/2025 2:00 PM EDT Office Visit [facility] [place] [address] Miley Jones documented as of this encounter Visit Diagnoses Not on filedocumented in this encounter Care Teams Travel Med Surg Rn Relationship Specialty Start Date End Date Bhanu Neville AGNP PCP - General Family Medicine 11/19/22 08/06/23 Carey [place] [address] PCP - General Family Medicine 08/07/23 12/11/23 [place] [address] PCP - General Family Medicine 12/12/23 [place] [address] Pharmacist Internal Medicine 02/22/25 documented as of this encounter
--- OUTSIDE RECORDS SUMMARY | 2025-04-06 11:32 | XMS_ITS | Encounter Summary ---
Author Organization [employer] Address [address] [facility] [address] 7t [place] [address] Care Team Providers Care Correspondence School Teacher Name Role Phone Vale Sales NP Primary Care Provider [phone] Carmen Yu PharmD Unavailable [phone] Encounter Details Date Type Department Care Team ([facility] Contact Info) Description 01/11/2025 Orders Only [facility] 230 [place], [place] [phone] Everett Quiñonez MD 230 [place], [place] [phone] Abnormal CXR (chest x-ray) (Primary Dx) Social History Tobacco Use Types Packs/Day Years [...] Description 04/07/2025 11:30 AM EDT Medication Management [facility] [address] [place] [address] Carmen Yu, PharmD [address] [place] [address] 04/08/2025 2:15 PM EDT Office Visit [facility] [address] [place] [address] Name, MD Rupert [address] [place] [address] 04/19/2025 11:30 AM EDT Office Visit [facility] [address] [place] [address] Vale Sales NP 230 [place] [address] 07/11/2025 2:00 PM EDT Office Visit [facility] [address] [place] [address] Miley Jones Scheduled Orders Name Type Priority Associated Diagnoses Orde r Schedule XR Chest 2 Views Imaging Routine Abnormal CXR (chest x-ray) Expected: 01/11/2025, Expires: 01/11/2026 documented as of this encounter Goals Goal Patient Goal Type Associated Problems Recent Progress Patient-Stated? Author Blood Pressure < 140/90 Blood Pressure 152/78(2024 1:07 PM EDT) No Gen [facility]ora Hemoglobin A1c < 7 Result Component 10.7(02/08/20 10:09 AM EDT) No Gen Vora documented as of this encounter Visit Diagnoses Diagnosis Abnormal CXR (chest x-ray)- Primary Nonspecific (abnormal) findings on radiological and other examination of lung field documented in this encounter Additional Health Concerns Assessment Noted Time PHQ-9 Depression Total Score: 0 07/23/20 3:50 PM EDT documented as of this encounter Care Teams Correspondence School Teacher Relationship Specialty Start Date End Date Vale Sales NP 230 [place] [address] PCP - General Family Medicine 12/12/23 Carmen Yu PharmD 230 [place] [address] Pharmacist Internal Medicine 02/22/25 documented as of this encounter
--- OUTSIDE RECORDS SUMMARY | 2025-04-06 11:32 | XMS_ITS | Encounter Summary ---
Author Organization [employer] Address [address] [facility] 7t [place] [address] Care Team Providers Care New Media Strategist Name Role Phone Vale Sales NP Primary Care Provider [phone] Carmen Yu PharmD Unavailable [phone] Reason for Visit * Reason Comments Pre-visit Planning SDOH was already com pleted Encounter Details Date Type Department Care Team ([facility] st Contact Info) Description 04/01/2025 Patient Outreach [facility] MED & PEDS [address] [place], [place] [phone] Vale Sales NP [address] [facility] [place] [address] Pre-visit Planning (SDOH was already completed) Social History Tobacco Use Types Packs/Day Years [...] encounter Progress Notes * Vernell Durán - 04/01/2025 1:26 PM EDT CC Vernell Olmstead placed successful outbound call to patient [...] Description 04/07/2025 11:30 AM EDT Medication Management [facility] MEDICINE [address] [place] [address] Carmen Yu, PharmD 230 [place] [address] 04/08/2025 2:15 PM EDT Office Visit [facility] MEDICINE [address] [place] [address] Name, MD Rupert [address] [place] [address] 04/19/2025 11:30 AM EDT Office Visit [facility] MEDICINE 230 [place] [address] Vale Sales NP 230 [place] [address] 07/11/2025 2:00 PM EDT Office Visit [facility] ADULT DENTAL 230 [place] [address] Miley Jones documented as of this encounter [...] documented as of this encounter Care Teams New Media Strategist Relationship Specialty Start Date End Date Vale Sales, KRYSTAL [address] [place] [address] PCP - General Family Medicine 12/12/23 Carmen Yu PharmD [address] [place] [address] Pharmacist Internal Medicine 02/22/25 documented as of this encounter
--- OUTSIDE RECORDS SUMMARY | 2025-04-06 11:32 | XMS_ITS | Encounter Summary ---
Author Organization [employer] Address [address] [facility] 7t [place] [address] Care Team Providers Care Cabin Outfitter Name Role Phone Vale Sales NP Primary Care Provider [phone] Carmen Yu PharmD Unavailable Reason for Visit * Reason Comments Med Refill Encounter Details Date Type Department Care Team ([facility] Contact Info) Description 10/18/2024 Refill [facility] CHC MED & PEDS [address] [place], [place] [phone] Name, MD Rupert [address] [place] [address] Elevated blood pressure reading Social History Tobacco [...] Description 04/07/2025 11:30 AM EDT Medication Management [facility] MEDICINE [address] [place] [address] Carmen Yu, PharmD [address] [place] [address] 04/08/2025 2:15 PM EDT Office Visit [address] [address] Name, MD Rupert 230 [place] [address] 04/19/2025 11:30 AM EDT Office Visit [facility] MEDICINE [address] [place] [address] Vale Sales NP [address] [place] [address] 07/11/2025 2:00 PM EDT Office Visit [facility] ADULT DENTAL [address] [place] [address] Miley Jones documented as of this encounter [...] documented as of this encounter Care Teams Cabin Outfitter Relationship Specialty Start Date End Date Vale Sales NP [address] [place] [address] PCP - General Family Medicine 12/12/23 Carmen Yu PharmD 230 [place] [address] Pharmacist Internal Medicine 02/22/25 documented as of this encounter
--- OUTSIDE RECORDS SUMMARY | 2025-04-06 11:32 | XMS_ITS | Encounter Summary ---
Author Organization [employer] Address [address] [place] [address] 7t [place] [address] Care Team Providers Care Dust Box Tender Name Role Phone Carey Staples Primary Care Provider [phone] Vale Sales NP Primary Care Provider [phone] Carmen Yu PharmD Unavailable [phone] Encounter Details Date Type Department Care Team ([facility] Contact Info) Description 08/11/2023 Telephone [facility] MEDICINE [address] [place] [address] Carey Staples FNP [address] [place] [address] Social History Tobacco Use Types Packs/Day Years [...] Upcoming Encounters Date Type Department Care Team ([facility] Contact Info) Description 04/07/2025 11:30 AM EDT Medication Management [facility] MEDICINE [address] [place] [address] Carmen Yu, PharmD 230 [place] [address] 04/08/2025 2:15 PM EDT Office Visit [facility] [place] [address] Name, [place] [address] 04/19/2025 11:30 AM EDT Office Visit [facility] [address] [facility] [place] [address] Vale Sales, KRYSTAL [address] [place] [address] 07/11/2025 2:00 PM EDT Office Visit [facility] ADULT DENTAL [address] [facility] [place] [address] Miley Jones documented as of this encounter Visit Diagnoses Not on filedocumented in this encounter Additional Health Concerns Assessment Noted Time PHQ-9 Depression Total Score: 9 04/02/20 23 2:32 PM EDT documented as of this encounter Care Teams Dust Box Tender Relationship Specialty Start Date End Date Carey [place] [address] PCP - General Family Medicine 08/07/23 12/11/23 Vale Sales NP [facility] [facility] [place] [place] [address] PCP - General Family Medicine 12/12/23 Carmen Yu PharmD [place] [facility] [place] [address] Pharmacist Internal Medicine 02/22/25 documented as of this encounter
--- OUTSIDE RECORDS SUMMARY | 2025-04-06 11:32 | XMS_ITS | Encounter Summary ---
Author Organization [employer] Address [address] [facility] [address] [place] [address] Care Team Providers Care Lens Silverer Name Role Phone Vale Sales NP Primary Care Provider [phone] Carmen Yu PharmD Unavailable Reason for Visit * Reason Comments Med Refill Encounter Details Date Type Department Care Team ([facility] st Contact Info) Description 06/23/2024 Refill [facility] CHC MED & PEDS [address] [place], [place] [phone] Vale Sales NP [address] [place] [address] Pain Social History Tobacco Use Types Packs/Day [...] Description 04/07/2025 11:30 AM EDT Medication Management [facility] MEDICINE [address] [place] [address] Carmen Yu PharmD [address] [place] [address] 04/08/2025 2:15 PM EDT Office Visit [facility] MEDICINE [address] [place] [address] Name, MD Rupert [address] [place] [address] 04/19/2025 11:30 AM EDT Office Visit [address] [address] Vale Sales NP [address] [place] [address] 07/11/2025 2:00 PM EDT Office Visit [facility] ADULT DENTAL [address] [place] [address] Miley Jones documented as of this encounter [...] documented as of this encounter Care Teams Lens Silverer Relationship Specialty Start Date End Date Vale Sales NP 230 [place] [address] PCP - General Family Medicine 12/12/23 Carmen Yu PharmD 230 [place] [address] Pharmacist Internal Medicine 02/22/25 documented as of this encounter
--- OUTSIDE RECORDS SUMMARY | 2025-04-06 11:32 | XMS_ITS | Encounter Summary ---
Author Organization [employer] Address [address] [facility] 7t [place] [address] Care Team Providers Care Edi Developer Name Role Phone Vale Sales NP Primary Care Provider [phone] Carmen Yu PharmD Unavailable [phone] Encounter Details Date Type Department Care Team ([facility] st Contact Info) Description 08/04/2024 Telephone [facility] MEDICINE [address] [place], [place] [phone] Vale Sales NP 230 [place], [place] [phone] Social History Tobacco Use Types Packs/Day Years [...] Description 04/07/2025 11:30 AM EDT Medication Management [facility] MEDICINE [address] [place] [address] Carmen Yu, PharmD [address] [place] [address] 04/08/2025 2:15 PM EDT Office Visit [facility] MEDICINE [address] [place] [address] Name, MD Rupert [address] [place] [address] 04/19/2025 11:30 AM EDT Office Visit [address] [address] Vale Sales, KRYSTAL [address] [place] [address] 07/11/2025 2:00 PM EDT Office Visit [facility] ADULT DENTAL [address] [place] [address] Miley Jonse documented as of this encounter Goals Goal [...] documented as of this encounter Care Teams Edi Developer Relationship Specialty Start Date End Date Vale Sales NP 230 [place] [address] PCP - General Family Medicine 12/12/23 Carmen Yu PharmD 230 [place] [address] Pharmacist Internal Medicine 02/22/25 documented as of this encounter
--- OUTSIDE RECORDS SUMMARY | 2025-04-06 11:32 | XMS_ITS | Clinical Summary ---
Author Organization [employer] Address [address] [place] [address] [address] [place] [address] Care Team Providers Care Entertainment Dancer Name Role Phone Vale Sales NP Primary Care Provider [phone] Carmen Yu PharmD Unavailable [phone] Allergies Active Allergy Reactions Criticality Noted Date Comments Lactose Diarrhea 01/02/2022 Medications Blood Glucose Monitoring Suppl (FreeStyle [place] Lite) w/Device kitIndications:T ype 2 diabetes mellitus without complication, unspecified whether jail insulin use ([facility]) Use to check blood sugar twice daily 1 kit 023 Active FREESTYLE LITE test stripIndications :Type 2 diabetes mellitus without complication, unspecified whether buttermaker helper insulin use ([facility]) TEST BLOOD SUGAR TWICE DAILY 100 each 11 023 Active TRUEplus Lancets 33G miscIndications: Type 2 diabetes mellitus without complication, unspecified whether buttermaker helper insulin use ([facility]) TEST BLOOD SUGAR TWICE DAILY 100 each 11 023 Active Alcohol Swabs (Alcohol Prep) 70 % padsIndications: Type 2 diabetes mellitus without complication, unspecified whether jail insulin use ([facility]) USE TWICE DAILY TO TEST BLOOD SUGAR 100 each 11 024 Active omega-3 acid ethyl esters (Lovaza) 1 g capsuleIndicatio ns:Low HDL (under 40) Take 1 capsule (1 g) by mouth 2 times daily. 60 capsule 11 024 2024 Active fenofibrate (Tricor) 54 MG tabletIndication s:Hypertriglycer idemia TAKE 1 TABLET BY MOUTH EVERY MORNING 90 tablet 1 Active D3 Super Strength 50 MCG (1999) capsuleIndicatio ns:Type 2 diabetes mellitus without complication, unspecified whether jail insulin use (CMS/HCC) TAKE 1 CAPSULE BY MOUTH EVERY MORNING 90 capsule 1 Active atorvastatin (Lipitor) 40 MG tablet TAKE 1 TABLET BY MOUTH EVERY DAY 90 tablet 1 024 Active lisinopril 2.5 MG tabletIndication s:Elevated blood pressure reading TAKE 1 TABLET BY MOUTH EVERY MORNING 90 tablet Active Continuous Glucose Director Of Physical Security (FreeStyle Bertin 3 [place]field) deviceIndication s:Uncontrolled type 2 diabetes mellitus with hyperglycemia (CMS/HCC) 1 each Once per day. Use as directed for CGM 1 each Active Continuous Glucose Sensor (FreeStyle Bertin 3 Plus Sensor) miscIndications: Uncontrolled type 2 diabetes mellitus with hyperglycemia (CMS/HCC) 1 each every 15 days. Apply 1 every 15 days as directed for CGM 2 each Active glucose blood (FreeStyle Precision Baldev Test) test stripIndications :Uncontrolled type 2 diabetes mellitus with hyperglycemia (CMS/[facility]) Use to test blood sugar 3 times daily in case of CGM failure or extremes of BG 100 each 025 2025 Active albuterol 108 (90 Base) MCG/ACT inhaler Inhale 2 puffs every 4 (four) hours if needed for wheezing or shortness of breath. 18 g 1 025 2025 Active Spacer/Aero-Hold ing Chambers (OptiChamber Devika) misc 1 each every 4 (four) hours if needed (asthma). 1 each 025 Active Ozempic, 0.25 or 0.5 MG/DOSE, 2 MG/3ML solution pen-injector INJECT 0.5 MG SUBCUTANEOUSLY EVERY 7 DAYS IN THE ABDOMEN, THIGHS, OR UPPER ARM, ROTATE INJECTION SITES. 3 mL Active empagliflozin-me tFORMIN ER (Synjardy XR) 5-1000 MG 24 hr tablet Take 2 tablets by mouth with breakfast. 60 tablet 025 2025 Active gabapentin (Neurontin) 100 MG capsuleIndicatio ns:Pain TAKE 1 CAPSULE BY MOUTH THREE TIMES DAILY IN THE MORNING, EVENING, AND BEDTIME 90 capsule 1 Active amoxicillin-clav ulanate (Augmentin) 875-125 MG tablet Take 1 tablet by mouth 2 times daily. 14 tablet 025 2024 Discontinued(T herapy completed) azithromycin (Zithromax Z-Mayco) 250 MG tablet Take 2 tablets once on day 1, then 1 tablet 1x/day for 4 days. 6 tablet 025 2024 Discontinued(T herapy completed) gabapentin (Neurontin) 100 MG capsuleIndicatio ns:Pain TAKE 1 CAPSULE BY MOUTH THREE TIMES DAILY IN THE MORNING, EVENING, AND BEDTIME 90 capsule 1 025 2024 Discontinued Active Problems Problem Noted Date Diagnosed Date [...] home: Has upcoming dental hygiene appointment with [facility] dental. Chronic low back pain 12/27/2014 Hypertriglyceridemia [...] appointment 04/02/23 Diabetes mellitus type 2, uncomplicated ([facility]) - Primary ? Today: A1C [...] Encounters Date Type Department Care Team Description 04/01/2025 Patient Outreach [facility] CHC MED & PEDS [address] [place], [place] [phone] Vale Sales NP Pre-visit Planning (SDOH was already completed) 03/31/2025 1:30 PM EDT Office Visit [facility] OPTOMETRY [address] [place], [place] [phone] Jake, Feli, OD Diabetes type 2, no ocular involvement (CMS/HCC) (Primary Dx); Macular scar of right eye; Localized traumatic opacities of cataract, right; Lamellar macular hole of right eye; Pallor, temporal, optic disc, right; Adhesions of iris of right eye; Presbyopia 03/31/2025 Travel 03/19/2025 Refill [facility] MEDICINE [address] [place] [phone] Vale Sales NP Pain 03/04/2025 Telephone [facility] MEDICINE [address] [place] [phone] Vale Sales NP CGM PA 02/22/2025 11:30 AM EDT Telemedicine [facility] MEDICINE [address], [place] [phone] Carmen Yu PharmD Hypertriglyceridemia (Primary Dx); Type 2 diabetes mellitus without complication, without long-term current use of insulin ([facility]); Uncontrolled type 2 diabetes mellitus with hyperglycemia ([facility]) 02/22/2025 Travel 02/16/2025 Telephone [facility] MEDICINE [address] [place] [phone] Vale Sales NP No Show 02/16/2025 Refill [facility] MEDICINE [address] [place] [phone] Vale Sales NP 02/14/[address] [address] Jolie Guidry FNP CHART PREP 02/09/2025 1:00 PM EDT Office Visit [facility] ADULT DENTAL [address] [place] [phone] Miley Jones Encounter for dental examination (Primary Dx); Periodontal disease; Dental calculus; Dental plaque; Subgingival dental calculus; Supragingival dental calculus 02/09/2025 Patient Outreach [facility] CHC MED & PEDS [address] [place], [place] [phone] Vale Sales NP Pre-visit Planning ([facility] unable to reach [facility] ) 02/07/2025 9:00 AM EDT Office Visit [facility] WALK-IN CENTER [address] [place] [phone] Everett Unger MD Cough, unspecified type (Primary Dx); Acute URI 02/01/2025 Telephone [facility] MEDICINE [address] [place] [phone] Vale Sales NP 01/26/2025 Refill [facility] MEDICINE [address] [place] [phone] Vale Sales NP Elevated blood sugar; Pain 01/14/2025 Refill [facility] MEDICINE [address] [place] [phone] Vale Sales NP Pain; Elevated blood sugar 01/12/2025 Telephone [facility] MEDICINE [address] [place] [phone] Vale Sales NP 01/11/2025 Orders Only [facility] WALK-IN CENTER [address] [place] [phone] Everett Unger MD Abnormal CXR (chest x-ray) (Primary Dx) 01/11/2025 Telephone [facility] WALK-IN CENTER [address] [place] [phone] Everett Unger MD 01/10/2025 10:00 AM EST Office Visit [facility] WALK-IN CENTER [address] [place] [phone] Everett Unger MD Acute cough (Primary Dx); Abnormal CXR (chest x-ray); Viral URI 01/09/2025 Refill [facility] MEDICINE [address] [place] [phone] Vale Sales, KRYSTAL Elevated blood pressure reading 01/07/2025 Telephone [facility] MEDICINE [address] [place] [phone] Vale Sales, KRYSTAL No Show from Last 3 Months Immunizations Immunization Administration Dates Next Due Influenza injectable quadriv [...] Sign Reading Time Taken Comments Blood Pressure 152/78 02/09/2025 1:07 PM EDT Pulse 74 02/07/2025 8:53 AM EDT Temperature 36.6 ??C (97.9 ??F) 02/07/2025 8:53 AM ED T Respiratory Rate 18 02/07/2025 8:53 AM EDT Oxygen Saturation 95% 02/07/2025 8:53 AM EDT Inhaled Oxygen Concentration - - Weight 88.6 kg (195 lb 6.4 oz) 02/07/2025 8:53 A M EDT Height 182.9 cm (6') 01/10/2025 9:59 AM EST Body Mass Index 26.5 01/10/2025 9:59 AM EST Plan of Treatment Upcoming Encounters Date Type Department Care Team (Late st Contact Info) Description 04/07/2025 11:30 AM EDT Medication Management [facility] MEDICINE [address], [place] [phone] Carmen Yu, PharmD [address] [place] [address] 04/08/2025 2:15 PM EDT Office Visit [facility] MEDICINE [address] [place] [phone] Name, MD Rupert [address] [place] [phone] 04/19/2025 11:30 AM EDT Office Visit [facility] MEDICINE [address] [place] [address] [phone] Vale Sales, KRYSTAL [address] [place], [place] [phone] 07/11/2025 2:00 PM EDT Office Visit [facility] ADULT DENTAL [address] [place] [address] [phone] Miley Jones Health Maintenance Due Date Last Done Comments CT Colonography 1978 Colonoscopy 1978 Colorectal Cancer Screening 1978 FIT DNA/Cologuard 1978 FIT 1978 FOBT 1978 Sigmoidoscopy 1978 Disability Screening 1978 Diabetes: Foot Exam 1988 Family Planning (PISQ) 1993 Hepatitis B Vaccines (1 of 3 - 19+ 3-dose series) 1997 Lipid Panel 01/25/2024 01/24/2023, 01/09/2022 Diabetes: Urine Protein Screening 07/01/2024 07/01/2023, 01/09/2022 COVID-19 Vaccine ( season) 2024 Influenza Vaccine (#1) 2024 8, 10/22/2016, 09/05/2015, Additional history exists Diabetes: Hemoglobin A1C 05/10/2025 03/2 025, 10/05/2024, 07/23/2024, Additional history exists Alcohol/Substance Use Screening 07/23/2025 07/23/2024 Depression Screening 07/23/2025 07/23/2024, 09/06/20 24 Dental Oral Exam 08/13/2025 02/09/2025, 12/25/2022 Dental Prophylaxis 08/13/2025 02/09/2025, 01/07/2023 Dental X-Ray: Full Mouth 12/26/2025 12/25/2022 SDOH Screening 12/28/2025 12/28/2024 Dental X-Ray: Bitewings 02/10/2026 02/09/2025, 12/25 Tobacco Screening 03/31/2026 03/31/2025 Eye Exam 03/31/2027 03/31/2025, 03/17, 03/31/2025, Additional history exists Zoster Vaccines (1 of 2) 2028 DTaP/Tdap/Td [...] on patient's age to complete this topic Hepatitis A Vaccines Aged Out No long er eligible based on patient's age to complete this topic IPV Vaccines Aged Out No longer eligi ble based on patient's age to complete this topic Meningococcal B Vaccine Aged Out No l onger eligible based on patient's age to complete [...] 10.7(02/08/20 10:09 AM EDT) No Gen Vora Procedures Procedure Name Priority Date/Time Associated Diagnosis Comments OCT, RETINA - OU - BOTH EYES Routine 03/31/2025 4:28 PM EDT Macular scar of right eye ORAL HYGIENE INSTRUCTIONS Routine 02/09/2025 1:00 PM EDT Periodontal disease Dental calculus Dental plaque Subgingival dental calculus Supragingival dental calculus PROPHYLAXIS - ADULT Routine 02/09/2025 1 :00 PM EDT Periodontal disease Dental calculus Dental plaque Subgingival dental calculus Supragingival dental calculus FULL MOUTH DEBRIDEMENT TO ENABLE A COMPREHENSIVE ORAL EVALUATION AND DIAGNOSIS ON A SUBSEQUENT VISIT Routine 02/09/2025 1:00 PM EDT Periodontal disease Dental calculus Dental plaque Subgingival dental calculus Supragingival dental calculus CASE PRESENTATION, DETAILED AND EXTENSIVE TREATMENT PLANNING Routine 02/09/2025 1:00 PM EDT BITEWINGS - 4 RADIOGRAPHIC IMAGES Routine 02/09/2025 1:00 PM EDT COMPREHENSIVE PERIODONTAL EVALUATION - NEW OR ESTABLISHED PATIENT Routine 02/09/2025 1:00 PM EDT Encounter for dental examination Periodontal disease Dental calculus Dental plaque PERIODIC ORAL EVALUATION - ESTABLISHED PATIENT Routine 02/09/2025 1:00 PM EDT Encounter for dental examination Periodontal disease Dental calculus Dental plaque T-SPOT(R).TB Routine 02/07/2025 10:09 AM EDT Cough, unspecified type CBC WITH AUTO DIFFERENTIAL Routine 02/07/2025 10:09 AM EDT Cough, unspecified type HEMOGLOBIN A1C Routine 02/07/2025 10:09 AM EDT Uncontrolled type 2 diabetes mellitus with hyperglycemia (CMS/HCC) COMPREHENSIVE METABOLIC PANEL Routine 02/07/2025 10:09 AM EDT Uncontrolled type 2 diabetes mellitus with hyperglycemia (CMS/HCC) XR CHEST 2 VIEWS Routine 02/07/2025 9:46 AM EDT Cough, unspecified type POCT INFLUENZA B (ID NOW RAPID MOLECULAR) Routine 02/07/2025 9:21 AM EDT Acute URI POCT INFLUENZA A (ID NOW RAPID MOLECULAR) Routine 02/07/2025 9:21 AM EDT Acute URI POCT RAPID COVID ANTIGEN Routine 02/07/2025 9:21 AM EDT Acute URI XR CHEST 2 VIEWS Routine 01/10/2025 10:4 6 AM EST Acute cough Abnormal CXR (chest x-ray) POCT INFLUENZA B (ID NOW RAPID MOLECULAR) Routine 01/10/2025 10:18 AM EST Viral URI POCT INFLUENZA A (ID NOW RAPID MOLECULAR) Routine 01/10/2025 10:18 AM EST Viral URI POCT RAPID COVID ANTIGEN Routine 01/10/2025 10:18 AM EST Viral URI ALBUMIN, RANDOM URINE W/CREATININE Routine 07/01/2023 10:20 AM EDT HEPATITIS C AB W/REFL TO HCV RNA, QN, PCR Routine 01/24/2023 10:31 AM EST Routine health maintenance HIV 1 RNA, QN PCR W/RFL CELINA (RTI,PI,INTEGRASE) Routine 01/24/2023 10:31 AM EST Routine health maintenance LIPID PANEL, STANDARD Routine 01/24/2023 10:30 AM EST Hypertriglyceridemia INTRAORAL - COMPLETE SERIES OF RADIOGRAPHIC IMAGES Routine 12/25/2022 10:00 AM EST Periodontal disease from Last 3 Months or Most Recently Relevant to Health Maintenance Results * OCT, Retina - OU - Both Eyes (03/31/2025 4:28 PM EDT) Feli Nuñez, OD - 03/31/2025 4:28 PM EDT OCT [facility] [employer] Optical Coherence Tomography Interpretation Report Measurements: OD ??OS Macula Thickness ??93 microns ??233 microns Test findings: OD: Lamellar hole, no cystoid macular edema (CME), scarring of central macula extending to the optic nerve OS: Normal foveal contour, no cystoid macular edema (CME), no retinal pigment epithelium (RPE) disruption, no subretinal fluid (SRF) Impression and Plan: Stable macular scarring with lamellar hole in the right eye. Normal left eye. Will monitor at his next exam. Feli Joseph OD OPHTH TOMOGRAPHY Final Result * T-SPOT??.TB (02/07/2025 10:09 AM EDT) Pathologist [facility] T Spot TB [facility] Comment:TEST NOT PERFORMEDA technical problem with the assaynecessitated a repeat, but thestability of the specimen wouldbe exceeded by the next scheduledset- up.THIS TEST WAS PERFORMED AT:in[employer]Depth/rapt.fm [id number] [place] [id number] SANFORD MD,PHD TS PANEL A [facility] Comment:NOTIFIED RONI AT THE [facility] 02/14 AT 1150 TS PANEL B [facility] Negative Control [facility] Positive Control [facility] 02/07/2025 10:0 9 AM EDT 02/07/2025 11:47 AM EDT Everett Unger MD LAB BLOOD ORDERABLES Final Resul t [facility] [address] [place] [address] [phone] * (ABNORMAL) CBC auto differential (02/07/2025 10:09 AM EDT) [facility] White Blood Count 10.5 4.8 - 10.8 X10*3/uL [facility] Red Blood Count 4.72 4.60 - 5.80 X10*6/uL [facility] Hemoglobin 14.0 14.0 - 18.0 g/dl [facility] Hematocrit 41.8(L) 42.0 - 52.0 % [facility] Mean Corpuscular Volume 88.6 80.0 - 98.0 fL [facility] Mean Corpuscular Hemoglobin 29.7 27.0 - 33.0 pg [facility] Mean Corpuscular HGB Conc 33.5 31.0 - 36.0 g/dl [facility] Red Cell Distribution Width 12.4 11.0 - 16.0 % [facility] Platelet Count 295 160 - 400 X10*3/uL [facility] Mean Platelet Volume 11.5 9.4 - 12.4 fL [facility] Neutrophils Percent Auto 70.7 45 - 73 % [facility] Imm Gran Pct Auto 1.0(H) 0.0 - 0.4 % [facility] Lymphocytes Percent Auto 19.4(L) 20 - 40 % [facility] Monocytes Percent Auto 7.0 2 - 11 % [facility] Eosinophils Percent Auto 1.3 0 - 4 % [facility] Basophils Percent Auto 0.6 0 - 2 % [facility] NRBC Pct Auto 0.0 0.0 - 0.2 /100WBC [facility] Neutrophils Absolute Auto 7.4 2.0 - 8.3 x10*3/uL [facility] Imm Gran Abs Auto 0.10(H) 0.00 - 0.03 X10*3/uL [facility] Lymphocytes Absolute Auto 2.0 1.2 - 4.9 X10*3/uL [facility] Monocytes Absolute Auto 0.7 0.1 - 1.2 X10*3/uL [facility] Eosinophils Absolute Auto 0.1 0.0 - 0.4 X10*3/uL [facility] Basophils Absolute Auto 0.1 0.0 - 0.2 X10*3/uL [facility] NRBC Abs Auto 0.000 0.0 - 0.012 X10*3/uL [facility] Blood Venous blood specimen / Unknown 02/07/2025 10:09 AM EDT 02/07/2025 11:42 AM EDT us Everett Unger MD LAB BLOOD ORDERABLES Final Resul t [facility] [address] [place] [address] [phone] * (ABNORMAL) Hemoglobin A1c (02/07/2025 10:09 AM EDT) Hemoglobin A1c 10.7(H) <6.0 % [facility] Comment:Hemoglobin A1C Refer ence Range Adults: 4.8 - 6.0 % Non diabetic: < 6.0 % Goal: < 7.0 %Additional Action Suggested: > 8.0 %Note: Hemoglobin A1c results are invalid for patients with abnormal amounts of HbF. Blood transfusions may impact the HbA1c concentration in the patient sample. Estimated Average Glucose 260 mg/dL [facility] Comment:eAG = Estimated ave rage glucose which is %A1C expressed asaverage glucose, using the formula of the W1Y-RtqwxcvHxyzork Glucose study (ADAG), Diabetes Care, Vol.31,#8,Jun. 2007 Blood Venous blood specimen / Unknown 02/07/2025 10:09 AM EDT 02/07/2025 11:42 AM EDT us Vale Sales LOAN COORDINATOR LAB BLOOD ORDERABLES Final Resul t [facility] [address] [place] [phone] * (ABNORMAL) Comprehensive Metabolic Panel (02/07/2025 10:09 AM EDT) Sodium 135 135 - 145 mmol/L [facility] Potassium 4.2 3.3 - 5.1 mmol/L [facility] Chloride 103 96 - 108 mmol/L [facility] Carbon Dioxide 26 22 - 29 mmol/L [facility] Anion Gap 10(L) 12 - 20 [facility] Urea Nitrogen (BUN) 9 9 - 16 mg/dL [facility] Creatinine, Serum 0.82 0.5 - 1.4 mg/dL [facility] Estimated Glomerular Filt Rate >60 [facility] Comment:Chronic Kidney Disea se: Estimated GFR < 60 mL/min/1.54h7Faodut Kidney Disease: Estimated GFR < 15 mL/min/1.73m2 Glucose 346(H) 60 - 115 mg/dL [facility] Calcium 9.6 8.4 - 10.2 mg/dL [facility] Bilirubin, Total 0.3 0.0 - 1.0 mg/dL [facility] Aspartate Amino Transferase 21 5 - 37 U/L [facility] Alanine Aminotransferase 14 0 - 40 U/L [facility] Total Protein 7.6 6.5 - 8.0 g/dL [facility] Albumin Level 3.4(L) 3.5 - 5.0 g/dL [facility] Alkaline Phosphatase 109 39 - 117 U/L [facility] Blood Venous blood specimen / Unknown 02/07/2025 10:09 AM EDT 02/07/2025 11:47 AM EDT us Vale Sales LOAN COORDINATOR LAB BLOOD ORDERABLES Final Resul t [facility] [address] [place] [address] [phone] * XR Chest 2 Views (02/07/2025 9:46 AM EDT) Only the most recent of2 resultswithin the time period is included. Anatomical Region Laterality Modality Chest Radiographic Eryn ging 02/07/2025 9:46 AM EDT Narrative 02/07/2025 10:30 AM EDT ?[facility] ?[address] ?[place] [address] ?XRay Report ? Signed ? Patient: Frederick Leonardo,Ganesh ?M ?? R#: [id number] ? : 1980 ?Acct:[id number] ? Age/Sex: 44 / M ?ADM Date: 03/24/25 ? Loc: HO.HHCX ? Attending Dr: Everett Unger MD ? Ordering Physician: EVERETT UNGER MD ?? Date of Service: 02/07/25 ?? Procedure(s): XR chest 2V ?? Accession Number(s): [id number] ? cc: EVERETT UNGER MD ? EXAMINATION: ??XR CHEST 2 VIEWS ? HISTORY: COUGH ? COMPARISON: Comparison is made with the prior examination dated ?? 01/10/2025. ? FINDINGS: ??PA and lateral views of the chest are submitted. There is a ?? persistent opacity in the right lower lobe compatible with pneumonia. ?? This appears slightly more prominent than on the prior study. ??There is ?? a trace associated right pleural effusion. The left lung is clear. ?? There is no left pleural effusion, pneumothorax, or pulmonary vascular ?? congestion. ??The heart is normal in size. ??The bones are intact. ? XR/XR chest 2V ?? IMPRESSION: ?? Right lower lobe pneumonia which is more prominent than on the prior ?? study. Associated trace pleural effusion. Continued follow-up is ?? recommended to document resolution. ? Electronically signed by: ??Franco Keane MD ??02/07/2025 10:27 AM EDT ? Dictated By: ?Franco Keane MD ? Signed By: ?<Electronically signed by Franco Keane MD in OV> ?02/07/25 1027 ? DD/ 0946 ? TD/TT: 02/07/25 1000 ? Regional Branch Manager: ? Procedure Note Dg, [place] - 02/07/2025 [place] [address] XRay Report Signed Patient: Edyta Brown R#: [id number] : 1980Acct:[id number] Age/Sex: 44 / MADM Date: 02/07/25 Loc: HO.HHCX Attending Dr: Everett Unger MD Ordering Physician: EVERETT UNGER MD Date of Service: 02/07/25 Procedure(s): XR chest 2V Accession Number(s): [id number] cc: EVERETT UNGER MD EXAMINATION: XR CHEST 2 VIEWS HISTORY: COUGH COMPARISON: Comparison is made with the prior examination dated 01/10/2025. FINDINGS: PA and lateral views of the chest are submitted. There is a persistent opacity in the right lower lobe compatible with pneumonia. This appears slightly more prominent than on the prior study. There is a trace associated right pleural effusion. The left lung is clear. There is no left pleural effusion, pneumothorax, or pulmonary vascular congestion. The heart is normal in size. The bones are intact. XR/XR chest 2V IMPRESSION: Right lower lobe pneumonia which is more prominent than on the prior study. Associated trace pleural effusion. Continued follow-up is recommended to document resolution. Electronically signed by: Franco Keane MD 02/07/2025 10:27 AM EDT RP Dictated By: Franco Keane MD Signed By: <Electronically signed by Franco Keane MD in OV> 02/07/25 1027 DD/ 0946 TD/TT: 02/07/25 1000 Regional Branch Manager: us Everett Unger MD IMG XR PROCEDURES Final Result * Influenza B (ID NOW Rapid Molecular) (02/07/2025 9:21 AM EDT) Only the most recent of2 resultswithin the time period is included. Influenza B Negative Negative, Indeterminate [facility] Swab 02/07/2025 9:21 AM EDT us Everett Unger MD POINT OF CARE TEST ENTER/EDIT OR DERABLES Final Result Performing Organization Address [facility] Co de Phone Number [facility] [address] [place] [phone] * Influenza A (ID NOW Rapid Molecular) (02/07/2025 9:21 AM EDT) Only the most recent of2 resultswithin the time period is included. Influenza A Negative Negative, Indeterminate [facility] Swab 02/07/2025 9:21 AM EDT us Everett Unger MD POINT OF CARE TEST ENTER/EDIT OR DERABLES Final Result Performing Organization Address [facility] [facility] Co de Phone Number [facility] [address] [place] [phone] * POCT Rapid COVID Ag (02/07/2025 9:21 AM EDT) Only the most recent of2 resultswithin the time period is included. Rapid COVID Ag Negative [facility] Swab 02/07/2025 9:21 AM EDT Everett Unger MD POINT OF CARE TEST ENTER/EDIT OR DERABLES Final Result Performing Organization Address [facility] Co de Phone Number [facility] [address] [place] [address] [phone] * Albumin, Random Urine W/Creatinine (07/01/2023 10:20 AM EDT) Creatinine, Urine 69.61 mg/dL [facility] Microalbumin Urine <5.0 mg/L [facility] Microalbum Creatinine Ratio Ur TNP ug/mg cr [facility] Comment:Unable to calculate albumin/creatinine ratio due to lowmicroalbumin or creatinine result. 07/01/2023 10:2 0 AM EDT 07/01/2023 11:33 AM EDT [facility] URINE ORDERABLES Final Res ult Performing Organization Address [facility] Co de Phone Number [facility] [address] [place] [address] [phone] * HIV-1 RNA, Quantitative, Real-Time PCR with Reflex to Genotype (RTI, PI, Integrase) (01/24/2023 10:31 AM EST) Pathologist [facility] HIV 1 RNA, QN PCR NOT DETECTED copies/mL [facility] [employer] [facility], HIV 1 RNA, QN PCR NOT DETECTED Log copies/mL [facility], Comment: REFERENCE RANGE: NOT DETECTED copies/mL ?NOT DETECTED ??Log copies/mL This test was performed using Real-Time Polymerase Chain Reaction. Reportable range is 20 to 10,000,000 copies/mL (1.30-7.00 Log copies/mL). 01/24/2023 10:3 1 AM EST 01/24/2023 10:32 AM EST Narrative [facility] - 01/27/2023 2:49 PM EDT FASTING:YES FASTING: YES B[facility] BLOOD ORDERABLES Final Res ult Performing Organization Address [facility] Co de Phone Number [facility] [address], [place] [address] [employer]/[facility], [address] [place] [address] * Hepatitis C Antibody with Reflex to HCV, RNA, Quantitative, Real-Time PCR (01/24/2023 10:31 AM EST) Hepatitis C Antibody NON-REACT MARCO NON-REACT MARCO [employer] Index 0.08 <1.00 [employer] Comment: HCV antibody was non-reactive. There is no laboratory evidence of HCV infection. In most cases, no further action is required. However, if recent HCV exposure is suspected, a test for HCV RNA (test code 07854) is suggested. For additional information please refer to http://education.Celulares.com/faq/TPZ95n5 (This link is being provided for informational/ educational purposes only.) Blood Venous blood specimen / Unknown 01/24/2023 10:31 AM EST 01/24/2023 10:32 AM EST Narrative [facility] - 01/27/2023 2:49 PM EDT FASTING:YES FASTING: YES B[facility] BLOOD ORDERABLES Final Res ult Performing Organization Address City/[facility]/ZIP Co de Phone Number [facility] [address], [place] [address] [employer] [address] [place] [address], (N[address]2) [place] [address] * (ABNORMAL) Lipid Panel, Standard (01/24/2023 10:30 AM EST) Cholesterol, Total 125 <200 mg/dL [employer] [place] [employer] HDL Cholesterol 35(L) > OR = 40 mg/dL [employer] [place] [employer] Triglycerides 167(H) <150 mg/dL [employer] [place] [employer] LDL Cholesterol 65 mg/dL (calc) [employer] [place] [employer] Comment: Reference range: <100 Desirable range <100 mg/dL for primary prevention; ?? <70 mg/dL for patients with CHD or diabetic patients with > or = 2 CHD risk factors. LDL-C is now calculated using the Brynn calculation, which is a validated novel method providing better accuracy than the Friedewald equation in the estimation of LDL-C. José SS et al. RICHA. 2013;310(19): 5460-6345 (http://education.SubHub/faq/ZYE840) Chol/HDLC Ratio 3.6 <5.0 (calc) [employer] [place] [employer] Non-HDL Cholesterol 90 <130 mg/dL (calc) [employer] [place] [employer] Comment: For patients with diabetes plus 1 major ASCVD risk factor, treating to a non-HDL-C goal of <100 mg/dL (LDL-C of <70 mg/dL) is considered a therapeutic option. Blood Venous blood specimen / Unknown 01/24/2023 10:30 AM EST 01/24/2023 10:31 AM EST Narrative [facility] - 01/24/2023 9:24 PM EST FASTING:YES FASTING: YES [facility] BLOOD ORDERABLES Final Res ult [facility] [address] [facility], [place] [address] [employer] [place] [employer] [address] [facility], (Nl2) [place] [address] from Last 3 Months or Most Recently Relevant to Health Maintenance Insurance * Guarantor: Ganesh Mack Account Type Relation to Patient Date of Phone Billing Address Personal/Family Self [address] Care Teams Entertainment Dancer Relationship Specialty Start Date End Date Vale Sales NP [address] [place] [address] PCP - General Family Medicine 12/12/23 Carmen Yu PharmD [address] [place] [address] Pharmacist Internal Medicine 02/22/25
== END 2025-04-06 10:42 | disposition home or self-care (01) ==
LOC: HO.HPS 10:05
PROVIDERS: PCP Emergency Medicine; Visit Provider Internal Medicine
DX: J18.9 Pneumonia, unspecified organism (principal); F17.200 Nicotine dependence, unspecified, uncomplicated
CPT/HCPCS: 99204

== ENCOUNTER 2025-04-06 10:04 | Outpatient (REF) | payer OTHER, SELFPAY ==
--- NOTE | ~2025-04-06 | XR_ITS ---
CLINICAL HISTORY: J18.9 - Pneumonia, unspecified organism --- Additional Notes or Special Instruction s: Follow up for Pneumonia 2 view chest x-ray. Comparison: CR/SR - XR CHEST 2V - 02/07/25 10:10 EDT Findings: The lungs are adequately expanded. No focal consolidation. No effusion or pneumothorax. Cardiac and mediastinal contours are within normal limits. No acute osseous abnormality. Impression: Near-complete interval resolution of the previous right lower lobe airspace density. This document has been electronically signed by: Carlos Chakraborty MD on 04/06/2025 13:48:16
== END 2025-04-06 10:05 | disposition home or self-care (01) ==
LOC: HO.XRAY 10:04
PROVIDERS: PCP Pharmacist; Visit Provider Internal Medicine
DX: J18.9 Pneumonia, unspecified organism (principal); F17.200 Nicotine dependence, unspecified, uncomplicated
CPT/HCPCS: 71046; 99202

== ENCOUNTER → 2025-04-06 10:48 | Outpatient (BNV) | payer OTHER, SELFPAY | PROVIDERS: PCP Pharmacist; Visit Provider Radiology Vascular & Interventional Radiology | DX: R05.9 Cough, unspecified (principal) | CPT/HCPCS: 71046 ==

== ENCOUNTER 2025-05-11 10:57 | Outpatient (REF) | payer OTHER, SELFPAY ==
[2025-05-11 12:14] LABS: Glucose Fasting 181 mg/dL (60-99)
[2025-05-11 12:20] LABS: Anion Gap 9 (12-20); Blood Urea Nitrogen 12 mg/dL (9-16); Calcium 9.1 mg/dL (8.4-10.2); Carbon Dioxide 29 mmol/L (22-29); Chloride 107 mmol/L (96-108); Cholesterol 67 mg/dL (<200); Estimated Glomerular Filt Rate > 60; Glucose Random 180 mg/dL (60-115); HDL Cholesterol 30 mg/dL (>40); LDL Cholesterol Calculated 24 mg/dL (<100); Potassium 4.1 mmol/L (3.3-5.1); Sodium 141 mmol/L (135-145); Triglycerides 69 mg/dL (<150)
[2025-05-11 12:54] LABS: Vitamin B12 456 pg/mL (200-900)
--- OUTSIDE RECORDS SUMMARY | 2025-05-11 12:57 | XMS_ITS | Encounter Summary ---
Author Organization [employer] Address [address] [facility] 7t [place] [address] Care Team Providers Care Scrap Preparation Supervisor Name Role Phone Vale Sales NP Primary Care Provider [phone] Carmen Yu PharmD Unavailable [phone] Reason for Visit * Reason Comments Med Refill Encounter Details Date Type Department Care Team ([facility] Contact Info) Description 01/29/2024 Refill [facility] MED & PEDS [address] [place], [place] [phone] Carey Staples FNP [address] [place] [address] Pain Social History Tobacco Use Types Packs/Day [...] Care Team (Late st Contact Info) Description 07/11/2025 2:00 PM EDT Office Visit [facility] [address] [place] [address] Miley Jones documented as of this encounter Goals Goal Patient Goal Type Associated Problems Recent Progress Patient-Stated? Author Blood Pressure < 140/90 Blood Pressure 120/70(2024 2:26 PM EDT) No Gen [facility] Hemoglobin A1c < 7 Result Component 11(04/08/2025 2:31 PM EDT) No Gen [facility]ora documented as of this encounter Visit Diagnoses Diagnosis Pain Generalized pain documented in this encounter Additional Health Concerns Assessment Noted Time PHQ-9 Depression Total Score: 9 04/02/20 23 2:32 PM EDT documented as of this encounter Care Teams Scrap Preparation Supervisor Relationship Specialty Start Date End Date Vale Sales NP [address] [place] [address] PCP - General Family Medicine 12/12/23 Carmen Yu PharmD [address] [place] [address] Pharmacist Internal Medicine 02/22/25 documented as of this encounter
[2025-05-11 13:10] LABS: Microalbumin Urine < 5.0 mg/L
== END 2025-05-11 10:58 | disposition home or self-care (01) ==
LOC: HO.RESP 10:57
PROVIDERS: Emergency Medicine; Pharmacist; Visit Provider Internal Medicine
DX: R05.9 Cough, unspecified (principal); E11.9 Type 2 diabetes mellitus without complications; E78.1 Pure hyperglyceridemia
CPT/HCPCS: 36415; 80048; 80061; 82043; 82570; 82607; 82746; 82947

== ENCOUNTER 2025-07-12 09:11 | Outpatient (REF) | payer OTHER, SELFPAY ==
--- NOTE | ~2025-07-12 | XR_ITS ---
EXAMINATION: XR CERVICAL SPINE CLINICAL INFORMATION: PAIN COMPARISON: None available. TECHNIQUE: 3 views of the cervical spine were obtained. FINDINGS: No significant scoliosis. Straightening of the normal lordosis. No fracture, compression deformity, or suspicious bone lesion. No significant subluxation. 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 Normal facet alignment. No facet subluxations. C1-2 articulation and craniocervical junction are intact and aligned. There is no prevertebral soft tissue abnormality. XR/XR cervical spine 3V IMPRESSION: 1. No acute findings of the cervical spine. 2. 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 Electronically signed by: John Macedo MD 07/12/2025 10:23 AM EDT
--- NOTE | ~2025-07-12 | XR_ITS ---
EXAMINATION: XR SHOULDER, LEFT CLINICAL INFORMATION: left shoulder injury several months ago with persistent pain COMPARISON: 10/09/2015 TECHNIQUE: Three views of the left shoulder. FINDINGS: Normal bone mineralization. No fracture, dislocation, or suspicious bone lesion. Normal alignment. The glenohumeral joint is normal. The AC joint is normal. There is a type II acromion. No undersurface spurring. The subacromial space is preserved. Remainder of the soft tissue and bony structures appear normal. XR/XR shoulder LT min 2V IMPRESSION: No acute or subacute findings left shoulder. Normal radiographs. Electronically signed by: John Macedo MD 07/12/2025 10:21 AM EDT
--- OUTSIDE RECORDS SUMMARY | 2025-07-12 08:40 | XMS_ITS | Encounter Summary ---
Author Organization [employer] Address [address] [facility] 7t [place] [address] Care Team Providers Care Door Repairman Name Role Phone Vale Sales NP Primary Care Provider Carmen Yu PharmD Unavailable [phone] Reason for Referral * Consultation (Routine) - Pending Review Specialty Diagnoses / Procedures Referred By Tom hare Referred To Contact Orthopaedic Surgery Diagnoses Injury of left shoulder, subsequent encounter Acute pain of left shoulder Neck pain Injury of neck, subsequent encounter Everett Quiñonez MD [address] [place] [address] Phone: tel: fax: Referral ID Status Reason Start Date Expiration Date Visits Requested Visits Authorized [id number] Pending Review Specialty Services Required 07/12/2025 07/12/2026 1 1 Encounter Details Date Type Department Care Team (Latest Contact Info) Description 07/12/2025 8:40 AM EDT Office [address] [facility] [address] [place] [phone] Injury of left shoulder, subsequent encounter (Primary Dx); Acute pain of left shoulder; Neck pain; Injury of neck, subsequent encounter; Abnormal chest x-ray; Cervical radiculopathy Social History Tobacco Use Types Packs/Day Years Used Date Smoking Tobacco: Every Day Cigarettes Passive Smoke Exposure: Current Smokeless Tobacco: Never Comments:Smoking 26 years Alcohol Use Standard Drinks/Week Comments Yes 0 (1 standard drink = 0.6 oz [...] Sign Reading Time Taken Comments Blood Pressure 130/79 07/12/2025 8:49 AM EDT Pulse 72 07/12/2025 8:49 AM EDT Temperature 36.9 C (98.4 F) 07/12/2025 8:49 AM EDT Respiratory Rate 16 07/12/2025 8:49 AM EDT Oxygen Saturation 99% 07/12/2025 8:49 AM EDT Inhaled Oxygen Concentration - - Weight 87.8 kg (193 lb 9.6 oz) 07/12/2025 8:49 A M EDT Height 182.9 cm (6') 07/12/2025 8:49 AM EDT Body Mass Index 26.26 07/12/2025 8:49 AM EDT documented in this encounter Plan of Treatment Upcoming Encounters Date Type Department Care Team (Late st Contact Info) Description 07/22/2025 9:30 [address] EDT [address] [facility] [address] [place] [address] Vale Sales NP [address] [place] [address] Scheduled Orders Name Type Priority Associated Diagnoses Orde r Schedule XR Cervical Spine 2-3 Views Imaging Routine Neck pain Injury of neck, subsequent encounter Expected: 07/12/2025, Expires: 07/12/2026 XR Shoulder 2+ Views Left Imaging Routine Injury of left shoulder, subsequent encounter Acute pain of left shoulder Expected: 07/12/2025, Expires: 07/12/2026 Scheduled Referrals Name Type Priority Associated Diagnoses Order Schedule Referral to Orthopaedic Surgery Outpatient Referral Routine Injury of left shoulder, subsequent encounter Acute pain of left shoulder Neck pain Injury of neck, subsequent encounter Expected: 07/12/2025 (Approximate), Expires: 07/12/2026 documented as of this encounter Goals Goal Patient Goal Type Associated Problems Recent Progress Patient-Stated? Author Blood Pressure < 140/90 Blood Pressure 130/79(2024 8:49 AM EDT) No Gen [facility] Hemoglobin A1c < 7 Result Component 11(04/08/2025 2:31 PM EDT) No Gen Vora documented as of this encounter Visit Diagnoses Diagnosis Injury of left shoulder, subsequent encounter- Primary Acute pain of left shoulder Neck pain Cervicalgia Injury of neck, subsequent encounter Abnormal chest x-ray Nonspecific (abnormal) findings on radiological and other examination of lung field Cervical radiculopathy Brachial neuritis or radiculitis nos documented in this encounter Additional Health Concerns Assessment Noted Time PHQ-9 Depression Total Score: 0 07/23/20 24 3:50 PM EDT documented as of this encounter Care Teams Door Repairman Relationship Specialty Start Date End Date Vale Sales NP [address] [place] [address] PCP - General Family Medicine 12/12/23 Carmen Yu PharmD [address] [place] [address] Pharmacist Internal Medicine 02/22/25 documented as of this encounter
--- OUTSIDE RECORDS SUMMARY | 2025-07-12 09:32 | XMS_ITS | Encounter Summary ---
Author Organization [employer] Address [address] [facility] [address] 7[address] [place] [address] Care Team Providers Care Dry Kiln Burner Name Role Phone Vale Sales NP Primary Care Provider [phone] Carmen Yu PharmD Unavailable [phone] Encounter Details Date Type Department Care Team ([facility] Contact Info) Description 01/11/2025 Orders Only [facility] [address] [place] [address] Everett Quiñonez MD [address] [place] [address] Abnormal CXR (chest x-ray) (Primary Dx) Social [...] Description 07/22/2025 9:30 AM EDT Office Visit [facility] [address] [place] [address] Vale Sales NP [address] [place] [address] Scheduled Orders Name Type Priority Associated Diagnoses [...] documented as of this encounter Care Teams Dry Kiln Burner Relationship Specialty Start Date End Date Vale Sales NP [address] [place] [address] PCP - General Family Medicine 12/12/23 Carmen Yu PharmD [address] [place] [address] Pharmacist Internal Medicine 02/22/25 documented as of this encounter
--- OUTSIDE RECORDS SUMMARY | 2025-07-12 09:32 | XMS_ITS | Encounter Summary ---
Author Organization [employer] Address [address] [facility] 7t [place] [address] Care Team Providers Care Remote Medical Coder Name Role Phone RosalindaVale bolanos KRYSTAL Primary Care Provider [phone] Carmen Yu PharmD Unavailable [phone] Reason for Visit * Reason Comments Med Refill Encounter Details Date Type Department Care Team ([facility] st Contact Info) Description 01/29/2024 Refill [facility] CH[facility] MED & PEDS [address] [place], [place] [phone] Carey Staples FNP [address] [place] [address] Pain Social History Tobacco Use Types Packs/Day [...] Description 07/22/2025 9:30 AM EDT Office Visit [facility] [address] [place] [address] Vale Sales NP [address] [place] [address] documented as of this encounter Goals Goal [...] documented as of this encounter Care Teams Remote Medical Coder Relationship Specialty Start Date End Date Vale Sales NP [address] [place] [address] PCP - General Family Medicine 12/12/23 Carmen Yu PharmD [address] [place] [address] Pharmacist Internal Medicine 02/22/25 documented as of this encounter
--- OUTSIDE RECORDS SUMMARY | 2025-07-12 09:32 | XMS_ITS | Clinical Summary ---
Author Organization [employer] Address [address] [facility] 7t [place] [address] Care Team Providers Care Leak Detection Engineer Name Role Phone Henrry Vale KRYSTAL Primary Care Provider [phone] Carmen Yu PharmD Unavailable [phone] Allergies Active Allergy Reactions Criticality Noted Date Comments Lactose Diarrhea 01/02/2022 Medications Blood Glucose Monitoring Suppl (FreeStyle [place] Lite) w/Device kitIndications:T ype 2 diabetes mellitus without complication, unspecified whether sole seamer insulin use (CMS/[facility]) Use to check blood sugar twice daily 1 kit 023 Active FREESTYLE LITE test stripIndications :Type 2 diabetes mellitus without complication, unspecified whether fdc insulin use (CMS/[facility]ER[facility]) TEST BLOOD SUGAR TWICE DAILY 100 each 023 Active TRUEplus Lancets 33G miscIndications: Type 2 diabetes mellitus without complication, unspecified whether sole seamer insulin use (CMS/[facility]ER[facility]) TEST BLOOD SUGAR TWICE DAILY 100 each 11 023 Active Continuous Glucose Corrugator Helper (FreeStyle Bertin 3 Vida) deviceIndication s:Uncontrolled type 2 diabetes mellitus with hyperglycemia (CMS/HCC) 1 each Once per day. Use as directed for CGM 1 each 025 Active Continuous Glucose Sensor (FreeStyle Bertin 3 Plus Sensor) miscIndications: Uncontrolled type 2 diabetes mellitus with hyperglycemia (CMS/HCC) 1 each every 15 days. Apply 1 every 15 days as directed for CGM 2 each 025 Active glucose blood (FreeStyle Precision Baldev Test) test stripIndications :Uncontrolled type 2 diabetes mellitus with hyperglycemia (CMS/HCC) Use to test blood sugar 3 times daily in case of CGM failure or extremes of BG 100 each 025 2025 Active albuterol 108 (90 Base) MCG/ACT inhaler Inhale 2 puffs every 4 (four) hours if needed for wheezing or shortness of breath. 18 g 025 2025 Active Spacer/Aero-Hold ing Chambers (OptiChamber Devika) misc 1 each every 4 (four) hours if needed (asthma). 1 each Active empagliflozin-me tFORMIN ER (Synjardy XR) 5-1000 MG 24 hr tablet Take 2 tablets by mouth with breakfast. 60 tablet 025 2025 Active Alcohol Swabs (Alcohol Prep) 70 % padsIndications: Type 2 diabetes mellitus without complication, unspecified whether fdc insulin use (CMS/HCC) USE TWICE DAILY 100 each 11 Active atorvastatin (Lipitor) 40 MG tablet TAKE 1 TABLET BY MOUTH EVERY MORNING 90 tablet Active fenofibrate (Tricor) 54 MG tabletIndication s:Hypertriglycer idemia TAKE 1 TABLET BY MOUTH EVERY MORNING 90 tablet Active D3 Super Strength 50 MCG (2000 UT) capsuleIndicatio ns:Type 2 diabetes mellitus without complication, unspecified whether sole seamer insulin use (CMS/HCC) TAKE 1 CAPSULE BY MOUTH EVERY MORNING 90 capsule Active lisinopril 2.5 MG tabletIndication s:Elevated blood pressure reading TAKE 1 TABLET BY MOUTH EVERY MORNING 90 tablet Active omega-3 acid ethyl esters (Lovaza) 1 g capsuleIndicatio ns:Low HDL (under 40) TAKE 1 CAPSULE BY MOUTH TWICE DAILY IN THE MORNING AND IN THE EVENING 60 capsule Active gabapentin (Neurontin) 100 MG capsuleIndicatio ns:Pain TAKE 1 CAPSULE BY MOUTH THREE TIMES DAILY IN THE MORNING, EVENING, AND BEDTIME 90 capsule Active Ozempic, 0.25 or 0.5 MG/DOSE, 2 MG/3ML solution pen-injector INJECT 0.5 MG SUBCUTANEOUSLY EVERY 7 DAYS IN THE ABDOMEN, THIGHS, OR UPPER ARM, ROTATE INJECTION SITES. 3 mL Active ibuprofen 400 MG tablet Take 1 tablet (400 mg) by mouth every 6 (six) hours if needed for moderate pain or fever for up to 30 doses. 30 tablet 025 Active acetaminophen (Tylenol Extra Strength) 500 MG tabletIndication s:Cervical radiculopathy Take 1 tablet (500 mg) by mouth every 6 (six) hours if needed for mild pain for up to 10 days. 30 tablet 025 2024 Active tiZANidine (Zanaflex) 4 MG tabletIndication s:Cervical radiculopathy Take 1 tablet (4 mg) by mouth at bedtime. 30 tablet 025 Active acetaminophen (Tylenol Extra Strength) 500 MG tabletIndication s:Cervical radiculopathy Take 1 tablet (500 mg) by mouth every 6 (six) hours if needed for mild pain for up to 10 days. 30 tablet 025 2024 Discontinued(R eorder (will not trigger notification to Pharmacy)) tiZANidine (Zanaflex) 4 MG tabletIndication s:Cervical radiculopathy Take 1 tablet (4 mg) by mouth every 6 (six) hours if needed for muscle spasms for up to 10 days. 30 tablet 025 2024 Discontinued tiZANidine (Zanaflex) 4 MG tabletIndication s:Cervical radiculopathy Take 1 tablet (4 mg) by mouth at bedtime for 10 days. 10 tablet 025 2024 Discontinued(R eorder (will not trigger notification to Pharmacy)) Active Problems Problem Noted Date Diagnosed Date [...] HDL Cholesterol > OR = 40 mg/dL 35 Low Triglycerides <150 mg/dL 167 High LDL Cholesterol mg/dL (calc) 65 Reduced vision [...] referral to opthalmology for diabetic retinopathy screening. Candidal balanitis 01/24/2023 Encounter for screening for malignant neoplasm o f colon 01/23/2023 Assessment & Plan (01/24/2023 5:00 PM EST): PHQ: Discuss at f/up STI: labs ordered Lipids: labs ordered Vacc.: discuss at f/up Eye exam: referral eye care placed. Dental home: Has upcoming dental hygiene appointment with [facility] dental. Chronic low back pain 12/27/2014 [...] appointment 04/02/23 Diabetes mellitus type 2, uncomplicated ([facility]) - Primary Today: A1C 8.3 Glucose 143 Patients A1C [...] managing his BS from here on out. Counseled weight loss, dietary changes including watching [...] to continue cutting down on pt own Resolved Problems Problem Noted Date Diagnosed Date Resolved Date ERRONEOUS ENCOUNTER--DISREGARD 01/30/2023 04/08/2025 Encounters Date Type Department Care Team Description 07/12/2025 8:40 AM EDT Office Visit [facility] [address] [phone] Injury of left shoulder, subsequent encounter (Primary Dx); Acute pain of left shoulder; Neck pain; Injury of neck, subsequent encounter; Abnormal chest x-ray; Cervical radiculopathy 07/12/2025 Travel 06/27/2025 10:40 AM EDT Office Visit [facility] [address] [address] Name, MD Rupert Cervical radiculopathy (Primary Dx) 06/27/2025 Travel 06/09/2025 Refill [facility] [address] [place] [address] Vale Sales NP 06/01/2025 Telephone [facility] [address] [place] [address] Vale Sales NP 05/19/2025 Refill [facility] [address] [place] [address] Vale Sales NP Pain 05/14/[address] [address] Vale Sales NP Pain 05/11/2025 Orders Only GENERIC EXTERNAL DATA DEPARTMENT Provider, Generic External Data 05/10/[address] [address] Vincenzo Mccracken [place] CHARTPREP 05/03/2025 Patient Outreach [facility] [address] [place] [address] Vale Sales NP Pre-visit Planning (SDND was already completed) 04/22/[address] [address] Vale Sales NP 04/21/[address] [facility] [address] [place] [address] Vale Sales NP Low HDL (under 40) 04/19/[address] [facility] [address] [place] [address] Vale Sales NP Hypertriglyceridemia; Type 2 diabetes mellitus without complication, unspecified whether sole seamer insulin use ([facility]); Elevated blood pressure reading 04/18/2025 Telephone [facility] [address] [place] [address] Vale Sales NP Chart Prep 04/14/2025 Refill [facility] [address] [place] [address] Vale Sales NP from Last 3 Months Immunizations Immunization Administration [...] Mass Index 26.26 07/12/2025 8:49 AM EDT Plan of Treatment Upcoming Encounters Date Type Department Care Team (Late st Contact Info) Description 07/22/2025 9:30 AM EDT Office Visit [facility] [address] [place] [address] Vale Sales NP [address] [place] [address] Health Maintenance Due Date Last Done Comments CT Colonography 1978 Colonoscopy 1978 Colorectal Cancer Screening 1978 FIT DNA/Cologuard 1978 FIT 1978 FOBT 1978 Sigmoidoscopy 1978 Diabetes: Foot Exam 1988 Family Planning (PISQ) 1993 Hepatitis B Vaccines (1 of 3 - 19+ 3-dose series) 1997 Diabetes: Urine Protein Screening 07/01/2024 07/01/2023, 01/09/2022 COVID-19 Vaccine ( season) 2024 Diabetes: Hemoglobin A1C 07/09/2025 025, 02/07/2025, 10/05/2024, Additional history exists Influenza Vaccine (#1) 2025 8, 10/22/2016, 09/05/2015, Additional history exists Alcohol/Substance Use Screening 07/23/2025 07/23/2024 Depression Screening 07/23/2025 07/23/2024, 07/23/20 Dental Oral Exam 08/13/2025 02/09/2025, 12/25/2022 Dental Prophylaxis 08/13/2025 02/09/2025, 01/07/2023 Dental X-Ray: Full Mouth 12/26/2025 12/25/2022 SDOH Screening 12/28/2025 12/28/2024 Dental X-Ray: Bitewings 02/10/2026 02/09/2025, 12/25 Disability Screening 04/08/2026 04/08/2025 Lipid Panel 05/11/2026 05/11/2025, 01/15, 01/09/2022 Tobacco Screening 07/12/2026 07/12/2025 Eye Exam 03/31/2027 03/31/2025, 03/17, 03/31/2025, Additional history exists Zoster Vaccines (1 of 2) 2028 DTaP/Tdap/Td Vaccines (3 - Td or Tdap) 06/14/2032 06/14/2022, 07/18/2010 RSV Patients and Patients Aged 60 years or older (1 - 1-dose 75+ series) 2053 HIV Screening Completed 01/24/2023 Hepatitis C Screening Completed 01/24/2023 Pneumococcal Vaccine: Pediatrics (0 to 5 Years) and At-Risk Patients (6 to 49) Years Completed 01/30/2023, 06/02/2012 HIB Vaccines Aged Out [...] 11(04/08/2025 2:31 PM EDT) No Gen Vora Procedures Procedure Name Priority Date/Time Associated Diagnosis Comments LIPID PANEL, STANDARD Routine 05/11/2025 11:18 AM EDT BASIC METABOLIC PANEL Routine 05/11/2025 11:18 AM EDT Cough, unspecified type POCT GLYCATED HEMOGLOBIN, TOTAL Routine 04/08/2025 2:31 PM EDT Type 2 diabetes mellitus without complication, without long-term current use of insulin ([facility]) PROPHYLAXIS - ADULT Routine 02/09/2025 1 :00 PM EDT Periodontal disease Dental calculus Dental plaque Subgingival dental calculus Supragingival dental calculus BITEWINGS - 4 RADIOGRAPHIC IMAGES Routine 02/09/2025 1:00 PM EDT PERIODIC ORAL EVALUATION - ESTABLISHED PATIENT Routine 02/09/2025 1:00 PM EDT Encounter for dental examination Periodontal disease Dental calculus Dental plaque ALBUMIN, RANDOM URINE W/CREATININE Routine 07/01/2023 10:20 AM EDT HEPATITIS C AB W/REFL TO HCV RNA, QN, PCR Routine 01/24/2023 10:31 AM EST Routine health maintenance HIV 1 RNA, QN PCR W/RFL CELINA (RTI,PI,INTEGRASE) Routine 01/24/2023 10:31 AM EST Routine health maintenance INTRAORAL - COMPLETE SERIES OF RADIOGRAPHIC IMAGES Routine 12/25/2022 10:00 AM EST Periodontal disease from Last 3 Months or Most Recently Relevant to Health Maintenance Results * (ABNORMAL) Lipid Panel, Standard (05/11/2025 11:18 AM EDT) Triglycerides 69 <150 mg/dL [facility] Comment:Desirable Triglyceri de: less than 150 mg/dLBorderline High Triglyceride 150-199 mg/dLHigh Triglyceride: 200-499 mg/dLVery High Triglyceride: greater than or equal to 5OO mg/dL Cholesterol 67 <200 mg/dL [facility] Comment:Desirable Cholestero l: less than 200 mg/dLBorderline High Cholesterol: 200-239 mg/dLHigh Cholesterol: greater than 239 mg/dL LDL Cholesterol Calculated 24 <100 mg/dL [facility] Comment:Desirable LDL: less than 100 mg/dLNear Optimal/Above Optimal LDL: 110- 129 mg/dLBorderline High LDL: 130-159 mg/dLHigh LDL: 160-189 mg/dLVery High LDL: greater than or equal to 190 mg/dL HDL Cholesterol 30(L) >40 mg/dL [facility] Comment:Desirable HDL: great er than 40 mg/dL Note: This HDL assay may give artificially low results in patients with liver disease. 05/11/2025 11:1 8 AM EDT 05/11/2025 11:18 AM EDT us Generic External Data Provider LAB BLOOD ORDERAB LES Final Result [facility] [address] [place] [address] [phone] * (ABNORMAL) Basic Metabolic Panel (05/11/2025 11:18 AM EDT) Sodium 141 135 - 145 mmol/L [facility] Potassium 4.1 3.3 - 5.1 mmol/L [facility] Chloride 107 96 - 108 mmol/L [facility] Carbon Dioxide 29 22 - 29 mmol/L [facility] Anion Gap 9(L) 12 - 20 [facility] Urea Nitrogen (BUN) 12 9 - 16 mg/dL [facility] Creatinine, Serum 0.67 0.5 - 1.4 mg/dL [facility] Estimated Glomerular Filt Rate >60 [facility] Comment:Chronic Kidney Disea se: Estimated GFR < 60 mL/min/1.53y9Vadyqc Kidney Disease: Estimated GFR < 15 mL/min/1.73m2 Glucose 180(H) 60 - 115 mg/dL [facility] Calcium 9.1 8.4 - 10.2 mg/dL [facility] Blood Venous blood specimen / Unknown 05/11/2025 11:18 AM EDT 05/11/2025 11:18 AM EDT Everett Quiñonez MD LAB BLOOD ORDERABLES Final Resul t Performing Organization Address City/State/[facility] Co de Phone Number [facility] [address] [place] [phone] * (ABNORMAL) POCT HGB A1C (04/08/2025 2:31 PM EDT) Hemoglobin A1C 11.0(A) 4.0 - 6.0 % QC Media Lot # [id number] Lot# Expiration Date Blood 04/08/2025 2:31 PM EDT Rupert Paredes MD POINT OF CARE TEST ENTER/EDIT OR DERABLES Final Result * Albumin, Random Urine W/Creatinine (07/01/2023 10:20 AM EDT) Creatinine, Urine 69.61 mg/dL [facility] Microalbumin Urine <5.0 mg/L [facility] Microalbum Creatinine Ratio Ur TNP ug/mg cr [facility] Comment:Unable to calculate albumin/creatinine ratio due to lowmicroalbumin or creatinine result. 07/01/2023 10:2 0 AM EDT 07/01/2023 11:33 AM EDT Bhanu STEPHENSON LAB URINE ORDERABLES Final Res ult [facility] [address] [place] [address] [phone] * HIV-1 RNA, Quantitative, Real-Time PCR with Reflex to Genotype (RTI, PI, Integrase) (01/24/2023 10:31 AM EST) HIV 1 RNA, QN PCR NOT DETECTED copies/mL [facility], HIV 1 RNA, QN PCR NOT DETECTED Log copies/mL [facility], Comment: REFERENCE RANGE: NOT DETECTED copies/mL NOT DETECTED Log copies/mL This test was performed using Real-Time Polymerase Chain Reaction. Reportable range is 20 to 10,000,000 copies/mL (1.30-7.00 Log copies/mL). 01/24/2023 10:3 1 AM EST 01/24/2023 10:32 AM EST Narrative [facility] - 01/27/2023 2:49 PM EDT FASTING:YES FASTING: YES Bhanu Neville [facility] LAB BLOOD ORDERABLES Final Res ult Performing Organization Address City/[facility] Co de Phone Number [address], [place] [address] [facility] [facility], [address] [place] [address] * Hepatitis C Antibody with Reflex to HCV, RNA, Quantitative, Real-Time PCR (01/24/2023 10:31 AM EST) Hepatitis C Antibody NON-REACT MARCO NON-REACT MARCO [facility] [place] Parclick.comt Index 0.08 <1.00 [facility] [place] [facility] Comment: HCV antibody was non-reactive. There is no laboratory evidence of HCV infection. In most cases, no further action is required. However, if recent HCV exposure is suspected, a test for HCV RNA (test code 08705) is suggested. For additional information please refer to http://[email or web address] (This link is being provided for informational/ educational purposes only.) Blood Venous blood specimen / Unknown 01/24/2023 10:31 AM EST 01/24/2023 10:32 AM EST Narrative [facility] - 01/27/2023 2:49 PM EDT FASTING:YES FASTING: YES Bhanu Neville AGNP LAB BLOOD ORDERABLES Final Res ult [facility] [address], [place] [address] Jacked [facility] [address], ([address]) [place] [address] from Last 3 Months or Most Recently Relevant to Health Maintenance Insurance [facility] < 65 [facility] * Guarantor: Ganesh Mack Account Type Relation to Patient Date of Phone Billing Address Personal/Family Self [address] Care Teams Leak Detection Engineer Relationship Specialty Start Date End Date Vale Sales NP [address] [place] [address] PCP - General Family Medicine 12/12/23 Carmen Yu PharmD [address] [place] [address] Pharmacist Internal Medicine 02/22/25
--- OUTSIDE RECORDS SUMMARY | 2025-07-12 09:33 | XMS_ITS | Encounter Summary ---
Author Organization [employer] Address [address] [facility] 7t [place] [address] Care Team Providers Care Acrylic Fabricator Name Role Phone Vale Sales NP Primary Care Provider [phone] Carmen Yu PharmD Unavailable [phone] Reason for Visit * Reason Comments Med Refill Encounter Details Date Type Department Care Team ([facility] st Contact Info) Description 05/14/2025 Refill [facility] [address] [place] [address] Vale Sales NP [address] [place] [address] Pain Social History Tobacco Use Types Packs/Day [...] Description 07/22/2025 9:30 AM EDT Office Visit [facility] [address] [place] [address] Vale Sales NP [address] [place] [address] documented as of this encounter Goals Goal [...] documented as of this encounter Care Teams Acrylic Fabricator Relationship Specialty Start Date End Date Vale Sales NP [address] [place] [phone] PCP - General Family Medicine 12/12/23 Carmen Yu PharmD [address] [place] [phone] Pharmacist Internal Medicine 02/22/25 documented as of this encounter
--- OUTSIDE RECORDS SUMMARY | 2025-07-12 09:33 | XMS_ITS | Encounter Summary ---
Author Organization [employer] Address [address] [place] [address] [address] [place] [address] Care Team Providers Care Senior Executive Compensation Analyst Name Role Phone Carey Staples Primary Care Provider [phone] Sales NP Primary Care Provider [phone] Carmen Yu PharmD Unavailable [phone] Encounter Details Date Type Department Care Team (Late Contact Info) Description 08/11/2023 Telephone [facility] [address] [place] [phone] Carey Staples FNP [address] [place] [phone] Social History Tobacco Use Types Packs/Day Years [...] Department Care Team (Late Contact Info) Description 07/22/2025 9:30 AM EDT Office Visit [facility] [address] [place] [address] Vale Sales, KRYSTAL [address] [place] [address] documented as of this encounter Visit Diagnoses Not on filedocumented in this encounter Additional Health Concerns Assessment Noted Time PHQ-9 Depression Total Score: 9 04/02/20 23 2:32 PM EDT documented as of this encounter Care Teams Senior Executive Compensation Analyst Relationship Specialty Start Date End Date Carey Staples FNP [address] [place] [address] PCP - General Family Medicine 08/07/23 12/11/23 Vlae Sales NP [address] [place] [address] PCP - General Family Medicine 12/12/23 Carmen Yu PharmD [address] [place] [phone] Pharmacist Internal Medicine 02/22/25 documented as of this encounter
--- OUTSIDE RECORDS SUMMARY | 2025-07-12 09:33 | XMS_ITS | Encounter Summary ---
Author Organization [employer] Address [address] [place] [address] [address] [place] [address] Care Team Providers Care Smeller Name Role Phone LoganCarey talavera LUIS F Primary Care Provider [phone] Vale Sales NP Primary Care Provider [phone] Carmen Yu PharmD Unavailable [phone] Reason for Visit * Reason Comments Med Refill Encounter Details Date Type Department Care Team (Late Contact Info) Description 08/13/2023 Refill [facility] [address] [place] [phone] Bhanu Neville AGNP Hypertriglyceridemia Social History Tobacco [...] Description 07/22/2025 9:30 AM EDT Office Visit [facility] [address] [place], [place] [phone] Vale Sales NP [address] [place], [place] [phone] documented as of this encounter Visit Diagnoses Diagnosis Hypertriglyceridemia Pure hyperglyceridemia documented in this encounter Additional Health Concerns Assessment Noted Time PHQ-9 Depression Total Score: 9 04/02/20 23 2:32 PM EDT documented as of this encounter Care Teams Smeller Relationship Specialty Start Date End Date Carey Staples FNP [address] [place] [address] PCP - General Family Medicine 08/07/23 12/11/23 Vale Sales, KRYSTAL [address] [place] [address] PCP - General Family Medicine 12/12/23 Carmen Yu PharmD [address] [place] [phone] Pharmacist Internal Medicine 02/22/25 documented as of this encounter
--- OUTSIDE RECORDS SUMMARY | 2025-07-12 09:33 | XMS_ITS | Encounter Summary ---
Author Organization [employer] Address [address] [facility] 7t [place] [address] Care Team Providers Care Operations Research Engineer Name Role Phone Rosalindacici Vale KRYSTAL Primary Care Provider [phone] Carmen Yu PharmD Unavailable [phone] Reason for Visit * Reason Comments Med Refill Encounter Details Date Type Department Care Team ([facility] st Contact Info) Description 10/18/2024 Refill [facility] [address] [place], [place] [phone] Name, MD Rupert [address] [place] [address] Elevated blood pressure reading Social History Tobacco [...] Description 07/22/2025 9:30 AM EDT Office Visit [facility] [address] [place] [address] Vale Sales NP [address] [place] [address] documented as of this encounter Goals Goal [...] documented as of this encounter Care Teams Operations Research Engineer Relationship Specialty Start Date End Date Vale Sales NP [address] [place] [phone] PCP - General Family Medicine 12/12/23 Carmen Yu PharmD [address] [place] [phone] Pharmacist Internal Medicine 02/22/25 documented as of this encounter
--- OUTSIDE RECORDS SUMMARY | 2025-07-12 09:33 | XMS_ITS | Encounter Summary ---
Author Organization [employer] Address [address] [facility] 7t [place] [address] Care Team Providers Care Decal Transferrer Name Role Phone Henrry Vale KRYSTAL Primary Care Provider [phone] Carmen Yu PharmD Unavailable [phone] Encounter Details Date Type Department Care Team (Latest Contact Info) Description 07/12/2025 Travel Social History Tobacco Use Types Packs/Day Years [...] Description 07/22/2025 9:30 AM EDT Office Visit [facility] [address] [place] [address] Vale Sales NP [address] [place] [address] documented as of this encounter Goals Goal [...] documented as of this encounter Care Teams Decal Transferrer Relationship Specialty Start Date End Date Vale Sales NP [address] [place] [address] PCP - General Family Medicine 12/12/23 Carmen Yu PharmD [address] [place] [address] Pharmacist Internal Medicine 02/22/25 documented as of this encounter
--- OUTSIDE RECORDS SUMMARY | 2025-07-12 09:33 | XMS_ITS | Encounter Summary ---
Author Organization [employer] Address [address] [facility] 7t [place] [address] Care Team Providers Care Operater Name Role Phone Vale Sales NP Primary Care Provider [phone] Carmen Yu PharmD Unavailable [phone] Encounter Details Date Type Department Care Team ([facility] st Contact Info) Description 08/04/2024 Telephone [facility] [address] [place], [place] [phone] Vale Sales NP [address] [place] [address] Social History Tobacco Use Types Packs/Day Years [...] Description 07/22/2025 9:30 AM EDT Office Visit [facility] [address] [place] [address] Vale Sales NP [address] [place] [address] documented as of this encounter Goals Goal [...] documented as of this encounter Care Teams Operater Relationship Specialty Start Date End Date Vale Sales NP [address] [place] [address] [phone] PCP - General Family Medicine 12/12/23 Carmen Yu PharmD [address] [place] [phone] Pharmacist Internal Medicine 02/22/25 documented as of this encounter
--- OUTSIDE RECORDS SUMMARY | 2025-07-12 09:33 | XMS_ITS | Encounter Summary ---
Author Organization [employer] Address [address] [facility] [address] 7t [place] [address] Care Team Providers Care Supervisor Inspection Name Role Phone Vale Sales NP Primary Care Provider [phone] Carmen Yu PharmD Unavailable [phone] Reason for Visit * Reason Comments Med Refill Encounter Details Date Type Department Care Team ([facility] st Contact Info) Description 06/23/2024 Refill [facility] MED & PEDS [address] [place], [place] [phone] Vale Sales NP [address] [place] [address] Pain Social History Tobacco Use Types Packs/Day [...] Description 07/22/2025 9:30 AM EDT Office Visit [facility] MEDICINE [address] [place] [address] Vale Sales NP [address] [place] [address] documented as of this encounter Goals Goal [...] as of this encounter Care Teams Supervisor Inspection Relationship Specialty Start Date End Date Vale Sales NP [address] [place] [address] PCP - General Family Medicine 12/12/23 Carmen Yu PharmD [address] [place] [address] Pharmacist Internal Medicine 02/22/25 documented as of this encounter
--- OUTSIDE RECORDS SUMMARY | 2025-07-12 09:33 | XMS_ITS | Encounter Summary ---
Author Organization [employer] Address [address] [facility] 7t [place] [address] Care Team Providers Care Store Receiver Name Role Phone Jamin Bhanu STEPHENSON Primary Care Provider Unavail able Carey StaplesP Primary Care Provider [phone] Vale Sales NP Primary Care Provider [phone] Carmen Yu PharmD Unavailable [phone] Encounter Details Date Type Department Care Team ([facility] Contact Info) Description 12/31/2022 Abstract [facility] ADULT DENTAL [address] [place] [address] Elver Montiel DDS [address] [place] [address] Social History Tobacco Use Types Packs/Day Years [...] Upcoming Encounters Date Type Department Care Team ([facility] Contact Info) Description 07/22/2025 9:30 AM EDT Office Visit [facility] MEDICINE [address] [place] [address] Vale Sales NP [address] [place] [address] documented as of this encounter Visit Diagnoses Not on filedocumented in this encounter Care Teams Store Receiver Relationship Specialty Start Date End Date Bhanu Neville AGNP PCP - General Family Medicine 11/19/22 08/06/23 Carey Staples FNP [address] [place] [address] PCP - General Family Medicine 08/07/23 12/11/23 Vale Sales NP [address] [place] [phone] PCP - General Family Medicine 12/12/23 Carmen Yu PharmD [address] [place] [address] Pharmacist Internal Medicine 02/22/25 documented as of this encounter
== END 2025-07-12 09:12 | disposition home or self-care (01) ==
LOC: HO.HHCX 09:11
PROVIDERS: Visit Provider Emergency Medicine
DX: M25.512 Pain in left shoulder (principal); S49.92XD Unspecified injury of left shoulder and upper arm, subsequent encounter; M54.2 Cervicalgia
CPT/HCPCS: 72040; 73030

== ENCOUNTER → 2025-07-12 09:11 | Outpatient (BNV) | payer OTHER, SELFPAY | PROVIDERS: Visit Provider Radiology Diagnostic Radiology | DX: M54.2 Cervicalgia (principal); M25.512 Pain in left shoulder | CPT/HCPCS: 72040; 73030 ==

== ENCOUNTER 2025-07-20 15:53 | Outpatient (AMB) | payer OTHER, SELFPAY ==
[2025-07-20 16:01] VITALS: BP 120/70; PULSE 97; O2SAT 98; BMI 26.2
--- NOTE | 2025-07-20 16:01 | MHC.OFFVIS ---
Vital Signs 07/20/25 16:01 Height 6 ft Weight 192 lb 14.472 oz BMI 26.2 BP 120/70 Blood Pressure Location Lt brachial Position Sitting Pulse 97 Pulse Source Pulse Oximeter Pulse Oximetry (%) 98 Oxygen Delivery Method Room Air Intake Visit Reasons: Cough Intake Note: pt is here for follow up and states he feels pretty good today, previous issues are gone. Neuropsychology Division Chief Required: No Allergies lactose Adverse Reaction (Intermediate, Verified 07/20/25 16:19) Diarrhea Medication List - Last Reconciled 07/20/25 by Bing Helm MD albuterol sulfate 90 mcg/actuation inhalation bisacodyl (Dulcolax (bisacodyl)) 10 mg (2 x 5 mg) PO ONCE 1 day cyclobenzaprine 5 mg PO TID PRN dulaglutide (Trulicity) mg subcut fenofibrate 54 mg PO DAILY gabapentin 100 mg PO TID glipizide ER 5 mg PO DAILY ibuprofen 600 mg PO Q6H PRN lisinopril 2.5 mg PO DAILY metformin 1,000 mg PO BID polyethylene glycol 3350 (Miralax) 238 grams PO ONCE Do you need a note to return to daycare/school/sports/work: No HPI HPI Cough: Details: This 44 years old gentleman is being seen for follow up . He is a smoker starting from age 17 and smokes about half to one packet of cigarettes a day. He treated for pneumonia right lower lobe back in March of this year. Had a chest x-ray which showed consolidation in the right lower lobe. Was treated with a course of antibiotics. A repeat chest x-ray about a month ago showed that the Density was smaller but still present . Final chest x-ray in March of this year showed that all the consolidation had cleared. He was planning to quit or at least cut down on smoking, but he comes today for follow-up claiming that he still smokes about 1 pack of cigarettes a day.. He also smokes 3-4 joints of marijuana daily. Cough is minimal mostly in the mornings. He has no significant shortness of breath . He was supposed to have pulmonary function test but had missed appointment . [facility] Medical History Smoker Pneumonia Macular degeneration Hypertension Diabetes type 2, controlled Social History Alcohol intake: current Alcohol intake frequency: a few times a week Comment: weekend Patient Tobacco Use Status: Current everyday Tobacco user Cigarette Packs Per Day: 1.0 Substance Use Type: Marijuana Review of Systems Const All systems reviewed & are unremarkable except as noted in HPI and below Eyes Reports as per HPI ENT Reports no additional complaints Card Denies chest pain, Denies syncope and Denies leg edema Resp Reports as per HPI GI Reports constipation Reports no additional complaints Musc Reports no additional complaints Skin/Breast Reports system reviewed and no additional complaints, except as documented Neuro Reports no additional complaints and Denies syncope Psych Reports no additional complaints Endo Reports other (Diabetes mellitus) Marlon/Lymph Reports no additional complaints Aller/Immun Reports no additional complaints Physical Exam Vital Signs: Last Vital Signs Pulse 97 07/20/25 16:01 BP 120/70 07/20/25 16:01 Pulse Ox 98 07/20/25 16:01 Oxygen Delivery Method Room Air 07/20/25 16:01 BMI result Body Mass Index 26.2 Const General: healthy appearing, comfortable, no acute distress, alert and awake Orientation/consciousness: patient oriented x3 HEENT Head: Yes normal to inspection General nose exam: No nasal polyps present and No nasal discharge present Face and sinus: Yes sinuses nontender Mouth: oropharynx normal Throat: Yes posterior oropharynx normal Eyes General: appearance normal, both eyes and all related structures Neck Neck: Yes normal visual inspection, Yes no lymphadenopathy, Yes trachea midline and Yes no JVD Thyroid: Thyroid normal Chest Chest palpation & inspection: normal inspection of the chest, normal palpation of entire chest wall and no tenderness Resp Other: Chest is symmetrical Percussion note resonant. Breath sounds are slightly distant with prolonged expiratory phase. No crepitations or wheezes are heard. Cardio Palpation: normal PMI Rate: regular rate Rhythm: regular rhythm Heart sounds: no gallops and no murmurs Peripheral pulses: Peripheral pulses 2+ throughout GI Palpation (GI): Soft to palpation, nontender, No hepatosplenomegaly present and no masses Auscultation: normal bowel sounds Back/Spine/Pelvis Thoracic/Lumbar Spine: thoracic and lumbar spine normal to inspection Skin General skin exam: no rashes or lesions noted Neuro General: patient oriented x3 and no focal motor deficits Cranial nerves: Yes CN's II-XII intact bilaterally Extrem General: Yes normal to inspection, Yes no clubbing, cyanosis or edema and Yes no calf tenderness Psych Speech and movement: Normal speech and movement present Office Procedures Spirometry Testing Spirometry Comments: SPIROMETRY DONE 36380- Spirometry Challenge Results Reviewed Results Reviewed: SPIROMETRY BEFORE AND AFTER BDs SPIROMETRY SHOWS THAT THE FLOW VOLUMES ARE ALL NORMAL, AND THERE IS NO RESPONSE TO BRONCHODILATOR THERAPY. SO AT THIS STAGE HE DOES NOT HAVE ANY OBSTRUCTIVE OR RESTRICTIVE LUNG DISEASE . Assessment & Plan Assessment & Plan (1) Pneumonia: Comment: Pneumonia right lower lobe, in March 2025 completely resolved. Code(s): J18.9 - Pneumonia, unspecified organism Category: Medical Plan: No further treatment needed (2) Smoker: Comment: Lifelong smoker since age 17. Trying to cut down the number of cigarettes , had cut down to 3-5 cigarettes when he had pneumonia but now back to 1 pack of cigarettes a day. Code(s): F17.200 - Nicotine dependence, unspecified, uncomplicated Category: Social Hx Plan: Counseled that he has to quit smoking. Offered nicotine patch but he does not want to use it. He promises that he is going to do it on his own . Spirometry before and after bronchodilator therapy is done today , which is surprisingly normal. .Patient explained about the results Advise that it is still important to quit smoking. At age 48 he can join the lung screening program Orders: Orders AMB Spirometry Testing Today J18.9 - Pneumonia, unspecified organism Coding Level of Care Code Est Pt Level 3 (21311) Diagnoses Pneumonia J18.9 Smoker F17.200 CPT Codes Spirometry - CPT: 96271- Spirometry Challenge ([id number])
--- OUTSIDE RECORDS SUMMARY | 2025-07-20 17:45 | XMS_ITS | Encounter Summary ---
Author Organization [employer] Address [address] [place] [address] [address] [place] [address] Care Team Providers Care Animal Tech Name Role Phone LoganCarey talavera LUIS F Primary Care Provider [phone] Vale Sales NP Primary Care Provider [phone] Carmen Yu PharmD Unavailable [phone] Reason for Visit * Reason Comments Med Refill Encounter Details Date Type Department Care Team (Late Contact Info) Description 08/13/2023 Refill [facility] MEDICINE [address] [place] [address] [phone] Bhanu Neville AGNP Hypertriglyceridemia Social History Tobacco [...] Description 07/22/2025 9:30 AM EDT Office Visit [facility] MEDICINE [address] [place], [place] [phone] Vale Sales NP [address] [place], [place] [phone] documented as of this encounter Visit Diagnoses Diagnosis Hypertriglyceridemia Pure hyperglyceridemia documented in this encounter Additional Health Concerns Assessment Noted Time PHQ-9 Depression Total Score: 9 04/02/20 23 2:32 PM EDT documented as of this encounter Care Teams Animal Tech Relationship Specialty Start Date End Date Carey Staples FNP [address] [place] [address] PCP - General Family Medicine 08/07/23 12/11/23 Vale Sales, KRYSTAL [address] [place] [address] PCP - General Family Medicine 12/12/23 Carmen Yu PharmD [address] [place] [address] Pharmacist Internal Medicine 02/22/25 documented as of this encounter
--- OUTSIDE RECORDS SUMMARY | 2025-07-20 17:45 | XMS_ITS | Encounter Summary ---
Author Organization [employer] Address [address] [facility] 7t [place] [address] Care Team Providers Care Spray Gun Sizer Name Role Phone Jamin Bhanu STEPHENSON Primary Care Provider Unavail able Carey StaplesP Primary Care Provider [phone] Vale Sales NP Primary Care Provider [phone] Carmen Yu PharmD Unavailable [phone] Encounter Details Date Type Department Care Team ([facility] Contact Info) Description 12/31/2022 Abstract [facility] ADULT DENTAL [address] [place] [address] Elver Montiel DDS [address] [place] [address] Social History Tobacco Use Types Packs/Day Years [...] Upcoming Encounters Date Type Department Care Team ([facility] Contact Info) Description 07/22/2025 9:30 AM EDT Office Visit [facility] MEDICINE [address] [place] [address] Vale Sales NP [address] [place] [address] documented as of this encounter Visit Diagnoses Not on filedocumented in this encounter Care Teams Spray Gun Sizer Relationship Specialty Start Date End Date Bhanu Neville AGNP PCP - General Family Medicine 11/19/22 08/06/23 Carey Staples FNP [address] [place] [address] PCP - General Family Medicine 08/07/23 12/11/23 Vale Sales NP [address] [place] [address] PCP - General Family Medicine 12/12/23 Carmen Yu PharmD [address] [place] [address] Pharmacist Internal Medicine 02/22/25 documented as of this encounter
--- OUTSIDE RECORDS SUMMARY | 2025-07-20 17:45 | XMS_ITS | Encounter Summary ---
Author Organization [employer] Address [address] [place] [address] [address] [place] [address] Care Team Providers Care Fitter Hand Name Role Phone Carey Staples Primary Care Provider [phone] Vale Sales NP Primary Care Provider [phone] Carmen Yu PharmD Unavailable [phone] Encounter Details Date Type Department Care Team (Late Contact Info) Description 08/11/2023 Telephone [facility] MEDICINE [address] [place] [address] Carey Staples FNP [address] [place] [address] Social History Tobacco Use Types Packs/Day Years [...] Description 07/22/2025 9:30 AM EDT Office Visit [facility] MEDICINE [address] [place] [address] Vale Sales, KRYSTAL [address] [place] [address] documented as of this encounter Visit Diagnoses Not on filedocumented in this encounter Additional Health Concerns Assessment Noted Time PHQ-9 Depression Total Score: 9 04/02/20 23 2:32 PM EDT documented as of this encounter Care Teams Fitter Hand Relationship Specialty Start Date End Date Carey Staples FNP [address] [place] [address] PCP - General Family Medicine 08/07/23 12/11/23 Vale Sales NP [address] [place] [address] PCP - General Family Medicine 12/12/23 Carmen Yu PharmD [address] [place] [address] Pharmacist Internal Medicine 02/22/25 documented as of this encounter
--- OUTSIDE RECORDS SUMMARY | 2025-07-20 17:45 | XMS_ITS | Encounter Summary ---
Author Organization [employer] Address [address] [facility] 7t [place] [address] Care Team Providers Care Algology Teacher Name Role Phone Rosalindacici Vale KRYSTAL Primary Care Provider [phone] Carmen Yu PharmD Unavailable [phone] Reason for Visit * Reason Comments Med Refill Encounter Details Date Type Department Care Team ([facility] st Contact Info) Description 10/18/2024 Refill [facility] MED & PEDS [address] [place], [place] [phone] Name, MD Rupert [address] [place] [address] Elevated blood pressure reading Social History Tobacco [...] 07/22/2025 9:30 AM EDT [address] [facility] MEDICINE [address] [place] [address] Vale Sales NP [address] [place] [address] documented as of this encounter Goals Goal [...] documented as of this encounter Care Teams Algology Teacher Relationship Specialty Start Date End Date Vale Sales NP [address] [place] [address] PCP - General Family Medicine 12/12/23 Carmen Yu PharmD [address] [place] [phone] Pharmacist Internal Medicine 02/22/25 documented as of this encounter
--- OUTSIDE RECORDS SUMMARY | 2025-07-20 17:45 | XMS_ITS | Encounter Summary ---
Author Organization [employer] Address [address] [facility] 7t [place] [address] Care Team Providers Care Research Animal Facility Supervisor Name Role Phone Vale Sales NP Primary Care Provider [phone] Carmen Yu PharmD Unavailable [phone] Reason for Visit * Reason Comments Med Refill Encounter Details Date Type Department Care Team ([facility] st Contact Info) Description 05/14/2025 Refill [facility] MEDICINE [address] [place], [place] [phone] Vale Sales NP [address] [place] [address] Pain Social History Tobacco Use Types Packs/Day [...] Description 07/22/2025 9:30 AM EDT Office Visit [facility] MEDICINE [address] [place] [address] Vale Sales NP [address] [place] [address] documented as of this encounter Goals Goal [...] documented as of this encounter Care Teams Research Animal Facility Supervisor Relationship Specialty Start Date End Date Vale Sales NP [address] [place] [address] PCP - General Family Medicine 12/12/23 Carmen Yu PharmD [address] [place] [address] Pharmacist Internal Medicine 02/22/25 documented as of this encounter
--- OUTSIDE RECORDS SUMMARY | 2025-07-20 17:45 | XMS_ITS | Clinical Summary ---
Author Organization [email or web address] Address [address] [facility] 7t [place] [address] Care Team Providers Care Welfare Service Aide Name Role Phone Henrry Vale KRYSTAL Primary Care Provider [phone] Carmen Yu PharmD Unavailable [phone] Allergies Active Allergy Reactions Criticality Noted Date Comments Lactose Diarrhea 01/02/2022 Medications Blood Glucose Monitoring Suppl (FreeStyle [place] Lite) w/Device kitIndications:T ype 2 diabetes mellitus without complication, unspecified whether senior living insulin use (CMS/[facility]) Use to check blood sugar twice daily 1 kit 023 Active FREESTYLE LITE test stripIndications :Type 2 diabetes mellitus without complication, unspecified whether senior living insulin use (CMS/[facility]) TEST BLOOD SUGAR TWICE DAILY 100 each 023 Active TRUEplus Lancets 33G miscIndications: Type 2 diabetes mellitus without complication, unspecified whether senior living insulin use ([facility]) TEST BLOOD SUGAR TWICE DAILY 100 each 11 023 Active Continuous Glucose Plan Examiner (FreeStyle Bertin 3 Elliott) deviceIndication s:Uncontrolled type 2 diabetes mellitus with [...] failure or extremes of BG 100 each 2025 Active albuterol 108 (90 Base) MCG/ACT [...] tablets by mouth with breakfast. 60 tablet 11 2025 Active Alcohol Swabs (Alcohol Prep) 70 % padsIndications: Type 2 diabetes mellitus without complication, unspecified whether senior living insulin use ([facility]) USE TWICE DAILY 100 each Active omega-3 acid ethyl esters (Lovaza) 1 g capsuleIndicatio ns:Low HDL (under 40) TAKE 1 CAPSULE BY MOUTH TWICE DAILY IN THE MORNING AND IN THE EVENING 60 capsule Active Ozempic, 0.25 or 0.5 MG/DOSE, 2 MG/3ML solution pen-injector INJECT 0.5 MG SUBCUTANEOUSLY EVERY 7 DAYS IN THE ABDOMEN, THIGHS, OR UPPER ARM, ROTATE INJECTION SITES. 3 mL 1 Active ibuprofen 400 MG tablet Take 1 tablet (400 mg) by mouth every 6 (six) hours if needed for moderate pain or fever for up to 30 doses. 30 tablet Active acetaminophen (Tylenol Extra Strength) 500 MG tabletIndication s:Cervical radiculopathy Take 1 tablet (500 mg) by mouth every 6 (six) hours if needed for mild pain for up to 10 days. 30 tablet 025 2024 Active tiZANidine (Zanaflex) 4 MG tabletIndication s:Cervical radiculopathy Take 1 tablet (4 mg) by mouth at bedtime. 30 tablet Active lisinopril 2.5 MG tabletIndication s:Elevated blood pressure reading TAKE 1 TABLET BY MOUTH EVERY MORNING 90 tablet Active fenofibrate (Tricor) 54 MG tabletIndication s:Hypertriglycer idemia TAKE 1 TABLET BY MOUTH EVERY MORNING 90 tablet 025 Active D3 Super Strength 50 MCG (2000 UT) capsuleIndicatio ns:Type 2 diabetes mellitus without complication, unspecified whether termite helper insulin use ([facility]) TAKE 1 CAPSULE BY MOUTH EVERY MORNING 90 capsule 025 Active atorvastatin (Lipitor) 40 MG tablet TAKE 1 TABLET BY MOUTH EVERY MORNING 90 tablet 025 Active gabapentin (Neurontin) 100 MG capsuleIndicatio ns:Pain TAKE 1 CAPSULE BY MOUTH THREE TIMES DAILY IN THE MORNING, EVENING, AND BEDTIME 90 capsule 1 025 Active atorvastatin (Lipitor) 40 MG tablet TAKE 1 TABLET BY MOUTH EVERY MORNING 90 tablet 025 2024 Discontinued fenofibrate (Tricor) 54 MG tabletIndication s:Hypertriglycer idemia TAKE 1 TABLET BY MOUTH EVERY MORNING 90 tablet 025 2024 Discontinued D3 Super Strength 50 MCG (2000 UT) capsuleIndicatio ns:Type 2 diabetes mellitus without complication, unspecified whether termite helper insulin use ([facility]) TAKE 1 CAPSULE BY MOUTH EVERY MORNING 90 capsule 025 2024 Discontinued lisinopril 2.5 MG tabletIndication s:Elevated blood pressure reading TAKE 1 TABLET BY MOUTH EVERY MORNING 90 tablet 025 2024 Discontinued gabapentin (Neurontin) 100 MG capsuleIndicatio ns:Pain TAKE 1 CAPSULE BY MOUTH THREE TIMES DAILY IN THE MORNING, EVENING, AND BEDTIME 90 capsule 1 025 2024 Discontinued acetaminophen (Tylenol Extra Strength) 500 MG tabletIndication s:Cervical radiculopathy Take 1 tablet (500 mg) by mouth every 6 (six) hours if needed for mild pain for up to 10 days. 30 tablet 025 2024 Discontinued(R juan f (will not trigger notification to Pharmacy)) tiZANidine [...] home: Has upcoming dental hygiene appointment with [facility] dental. Chronic low back pain 12/27/2014 [...] appointment 04/02/23 Diabetes mellitus type 2, uncomplicated ([facility]) - Primary Today: A1C 8.3 Glucose [...] Encounters Date Type Department Care Team Description 07/14/2025 Refill [facility] [address] [place] [phone] Vale Sales NP Pain 07/13/2025 Refill [facility] [address] [place] [address] Rupert Paredes MD Elevated blood pressure reading; Hypertriglyceridemia; Type 2 diabetes mellitus without complication, unspecified whether senior living insulin use ([facility]) 07/12/2025 8:40 AM EDT Office Visit [facility] [address] [place] [phone] Everett Quiñonez MD Injury of left shoulder, subsequent encounter (Primary Dx); Acute pain of left shoulder; Neck pain; Injury of neck, subsequent encounter; Abnormal chest x-ray; Cervical radiculopathy 07/12/2025 Orders Only [facility] [address] [place] [phone] Everett Quiñonez MD 07/12/2025 Travel 06/27/2025 10:40 AM EDT Office Visit [facility] [address] [place] [phone] Rupert Paredes MD Cervical radiculopathy (Primary Dx) 06/27/2025 Travel 06/09/2025 Refill [facility] [address] [place] [phone] Vale Sales NP 06/01/2025 Telephone [facility] [address] [place] [address] 113[address] Vale Sales NP 05/19/2025 Refill [facility] [address] [place] [phone] Vale Sales NP Pain 05/14/2025 Refill [facility] [address] [place] [address] Vale Sales NP Pain 05/11/2025 Orders Only GENERIC EXTERNAL DATA DEPARTMENT Provider, Generic External Data 05/10/2025 Telephone [facility] [address] [place] [phone] Vincenzo Mccracken MA CHARTPREP 05/03/2025 Patient Outreach [facility] [address] [place] [address] Vale Sales NP Pre-visit Planning (SDOH was already completed) 04/22/2025 Telephone [facility] [address] [place] [address] Vale Sales NP 04/21/2025 Refill [facility] [address] [place] [address] Vale Sales NP Low HDL (under 40) 04/19/2025 Refill [facility] [address] [place] [address] Vale Sales NP Hypertriglyceridemia; Type 2 diabetes mellitus without complication, unspecified whether termite helper insulin use ([facility]); Elevated blood pressure reading from Last 3 Months Immunizations Immunization Administration [...] Description 07/22/2025 9:30 AM EDT Office Visit [facility] [address] [place] [address] Vale Sales NP [address] [place] [address] Health Maintenance Due Date Last Done Comments CT Colonography 1978 Colonoscopy 1978 Colorectal Cancer Screening 1978 FIT DNA/Cologuard 1978 FIT 1978 FOBT 1978 Sigmoidoscopy 1978 Diabetes: Foot Exam 1988 Family Planning (PISQ) 1993 Hepatitis B Vaccines (1 of 3 - 19+ 3-dose series) 1997 Diabetes: Urine Protein Screening 07/01/2024 07/01/2023, 01/09/2022 Diabetes: Hemoglobin A1C 07/09/2025 025, 02/07/2025, 10/05/2024, Additional history exists COVID-19 Vaccine ( season) 2025 Influenza Vaccine (#1) 2025 8, 10/22/2016, 09/05/2015, [...] Name Priority Date/Time Associated Diagnosis Comments XR CERVICAL SPINE 3V Routine 07/12/2025 9:12 AM EDT XR SHOULDER 2+ VIEWS LEFT Routine 07/12/2025 8:33 AM EDT Injury of left shoulder, subsequent encounter Acute pain of left shoulder LIPID PANEL, STANDARD Routine 05/11/2025 11:18 AM EDT BASIC METABOLIC PANEL Routine 05/11/2025 11:18 AM EDT Cough, unspecified type POCT GLYCATED HEMOGLOBIN, TOTAL Routine 04/08/2025 2:31 PM EDT Type 2 diabetes mellitus without complication, without long-term current use of insulin ([facility]) PROPHYLAXIS - ADULT Routine 02/09/2025 1 [...] Relevant to Health Maintenance Results * XR CERVICAL SPINE 3V (07/12/2025 9:12 AM EDT) Anatomical Region Laterality Modality Abdomen Radiographic Eryn ging 07/12/2025 9:12 AM EDT Narrative 07/12/2025 10:26 AM EDT [address] [address] XRay Report Signed Patient: Frederick LeonardoGanesh Lupis#: [id number] : 1980 Acct:[id number] Age/Sex: 44 / M ADM Date: 07/12/25 Loc: HO.HHCX Attending Dr: Everett Quiñonez MD Ordering Physician: EVERETT QUIÑONEZ MD Date of Service: 07/12/25 Procedure(s): XR cervical spine 3V Accession Number(s): [id number] cc: EVERETT QUIÑONEZ MD EXAMINATION: XR CERVICAL SPINE CLINICAL INFORMATION: PAIN COMPARISON: None available. TECHNIQUE: 3 views of the cervical spine were obtained. FINDINGS: No significant scoliosis. Straightening of the normal lordosis. No fracture, compression deformity, or suspicious bone lesion. No significant subluxation. 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 Normal facet alignment. No facet subluxations. C1-2 articulation and craniocervical junction are intact and aligned. There is no prevertebral soft tissue abnormality. XR/XR cervical spine 3V IMPRESSION: 1. No acute findings of the cervical spine. 2. 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 Electronically signed by: John Macedo MD 07/12/2025 10:23 AM EDT Dictated By: John Macedo MD Signed By: <Electronically signed by John Macedo MD in OV> 07/12/25 1023 DD/ 0912 TD/TT: 07/12/25 0914 Program Aide Group Work: Procedure Note Donotuseinterpreter, Image - 07/12/2025 [place] [address] XRay Report Signed Patient: Edyta Brown R#: [id number] : 1980Acct:[id number] Age/Sex: 44 / MADM Date: 07/12/25 Loc: HO.HHCX Attending Dr: Everett Quiñonez MD Ordering Physician: EVERETT QUIÑONEZ MD Date of Service: 07/12/25 Procedure(s): XR cervical spine 3V Accession Number(s): [id number] cc: EVERETT QUIÑONEZ MD EXAMINATION: XR CERVICAL SPINE CLINICAL INFORMATION: PAIN COMPARISON: None available. TECHNIQUE: 3 views of the cervical spine were obtained. FINDINGS: No significant scoliosis. Straightening of the normal lordosis. No fracture, compression deformity, or suspicious bone lesion. No significant subluxation. 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 Normal facet alignment. No facet subluxations. C1-2 articulation and craniocervical junction are intact and aligned. There is no prevertebral soft tissue abnormality. XR/XR cervical spine 3V IMPRESSION: 1. No acute findings of the cervical spine. 2. 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 Electronically signed by: John Macedo MD 07/12/2025 10:23 AM EDT Dictated By: John Macedo MD Signed By: <Electronically signed by John Macedo MD in OV> 07/12/25 1023 DD/ 0912 TD/TT: 07/12/25 0914 Program Aide Group Work: Everett Quiñonez MD IMG XR PROCEDURES Final Result * XR Shoulder 2+ Views Left (07/12/2025 8:33 AM EDT) Anatomical Region Laterality Modality Upper Extremities, Shoulder Left Radi ographic Imaging 07/12/2025 8:33 AM EDT Narrative 07/12/2025 10:24 [place] [address] XRay Report Signed Patient: Ganesh Brown R#: [id number] : 1980 Acct:[id number] Age/Sex: 44 / M ADM Date: 07/12/25 Loc: HO.HHCX Attending Dr: Everett Quiñonez MD Ordering Physician: EVERETT QUIÑONEZ MD Date of Service: 07/12/25 Procedure(s): XR shoulder LT min 2V Accession Number(s): [id number] cc: EVERETT QUIÑONEZ MD EXAMINATION: XR SHOULDER, LEFT CLINICAL INFORMATION: left shoulder injury several months ago with persistent pain COMPARISON: 10/09/2015 TECHNIQUE: Three views of the left shoulder. FINDINGS: Normal bone mineralization. No fracture, dislocation, or suspicious bone lesion. Normal alignment. The glenohumeral joint is normal. The AC joint is normal. There is a type II acromion. No undersurface spurring. The subacromial space is preserved. Remainder of the soft tissue and bony structures appear normal. XR/XR shoulder LT min 2V IMPRESSION: No acute or subacute findings left shoulder. Normal radiographs. Electronically signed by: John Macedo MD 07/12/2025 10:21 AM EDT Dictated By: John Macedo MD Signed By: <Electronically signed by John Macedo MD in OV> 07/12/25 1021 DD/ 0833 TD/TT: 07/12/25 0900 Program Aide Group Work: Procedure Note Donotuseinterpreter, Image - 07/12/2025 [place] [address] XRay Report Signed Patient: Edyta Brown R#: [id number] : 1980Acct:[id number] Age/Sex: 44 / MADM Date: 07/12/25 Loc: .HHCX Attending Dr: Everett Quiñonez MD Ordering Physician: EVERETT QUIÑONEZ MD Date of Service: 07/12/25 Procedure(s): XR shoulder LT min 2V Accession Number(s): [id number] cc: EVERETT QUIÑONEZ MD EXAMINATION: XR SHOULDER, LEFT CLINICAL INFORMATION: left shoulder injury several months ago with persistent pain COMPARISON: 10/09/2015 TECHNIQUE: Three views of the left shoulder. FINDINGS: Normal bone mineralization. No fracture, dislocation, or suspicious bone lesion. Normal alignment. The glenohumeral joint is normal. The AC joint is normal. There is a type II acromion. No undersurface spurring. The subacromial space is preserved. Remainder of the soft tissue and bony structures appear normal. XR/XR shoulder LT min 2V IMPRESSION: No acute or subacute findings left shoulder. Normal radiographs. Electronically signed by: John Macedo MD 07/12/2025 10:21 AM EDT Dictated By: John Macedo MD Signed By: <Electronically signed by John Macedo MD in OV> 07/12/25 1021 DD/ 0833 TD/TT: 07/12/25 0900 Program Aide Group Work: us Everett Quiñonez MD IMG XR PROCEDURES Final Result * (ABNORMAL) Lipid Panel, Standard (05/11/2025 11:18 AM EDT) Triglycerides 69 <150 mg/dL [facility] Comment:Desirable Triglyceri de: less than 150 mg/dLBorderline High Triglyceride 150-199 mg/dLHigh Triglyceride: 200-499 mg/dLVery High Triglyceride: greater than or equal to 5OO mg/dL Cholesterol 67 <200 mg/dL [facility] Comment:Desirable Cholestero l: less than 200 mg/dLBorderline High Cholesterol: 200-239 mg/dLHigh Cholesterol: greater than 239 mg/dL LDL Cholesterol Calculated 24 <100 mg/dL [facility] Comment:Desirable LDL: less than 100 mg/dLNear Optimal/Above Optimal LDL: 110- 129 mg/dLBorderline High LDL: 130-159 mg/dLHigh LDL: 160-189 mg/dLVery High LDL: greater than or equal to 190 mg/dL HDL Cholesterol 30(L) >40 mg/dL [facility] Comment:Desirable HDL: great er than 40 mg/dL Note: This HDL assay may give artificially low results in patients with liver disease. 05/11/2025 11:1 8 AM EDT 05/11/2025 11:18 AM EDT us Generic External Data Provider LAB BLOOD ORDERAB LES Final Result [facility] [address] [place] [phone] * (ABNORMAL) Basic Metabolic Panel (05/11/2025 11:18 AM EDT) Sodium 141 135 - 145 mmol/L [facility] Potassium 4.1 3.3 - 5.1 mmol/L [facility] Chloride 107 96 - 108 mmol/L [facility] Carbon Dioxide 29 22 - 29 mmol/L [facility] Anion Gap 9(L) 12 - 20 [facility] Urea Nitrogen (BUN) 12 9 - 16 mg/dL [facility] Creatinine, Serum 0.67 0.5 - 1.4 mg/dL [facility] Estimated Glomerular Filt Rate >60 [facility] Comment:Chronic Kidney Disea se: Estimated GFR < 60 mL/min/1.05y8Valyjs Kidney Disease: Estimated GFR < 15 mL/min/1.73m2 Glucose 180(H) 60 - 115 mg/dL [facility] Calcium 9.1 8.4 - 10.2 mg/dL [facility] Blood Venous blood specimen / Unknown 05/11/2025 11:18 AM EDT 05/11/2025 11:18 AM EDT Everett Quiñonez MD LAB BLOOD ORDERABLES Final Resul t [facility] [address] [place] [phone] * (ABNORMAL) POCT HGB A1C (04/08/2025 2:31 PM EDT) Hemoglobin A1C 11.0(A) 4.0 - 6.0 % QC Media Lot # [id number] Lot# Expiration Date 42 Blood 04/08/2025 2:31 PM EDT Rupert Paredes MD POINT OF CARE TEST ENTER/EDIT OR DERABLES Final Result * Albumin, Random Urine W/Creatinine (07/01/2023 10:20 AM EDT) Creatinine, Urine 69.61 mg/dL [facility] Microalbumin Urine <5.0 mg/L [facility] Microalbum Creatinine Ratio Ur TNP ug/mg cr [facility] Comment:Unable to calculate albumin/creatinine ratio due to lowmicroalbumin or creatinine result. 07/01/2023 10:2 0 AM EDT 07/01/2023 11:33 AM EDT [facility] LAB URINE ORDERABLES Final Res ult [facility] [address] [place] [phone] [phone] * HIV-1 RNA, Quantitative, Real-Time PCR with Reflex to Genotype (RTI, PI, Integrase) (01/24/2023 10:31 AM EST) HIV 1 RNA, QN PCR NOT DETECTED copies/mL [facility], HIV 1 RNA, QN PCR NOT DETECTED Log copies/mL [facility], Comment: REFERENCE RANGE: NOT DETECTED copies/mL NOT DETECTED Log copies/mL This test was performed using Real-Time Polymerase Chain Reaction. Reportable range is 20 to 10,000,000 copies/mL (1.30-7.00 Log copies/mL). 01/24/2023 10:3 1 AM EST 01/24/2023 10:32 AM EST Narrative [facility] - 01/27/2023 2:49 PM EDT FASTING:YES FASTING: YES [facility] LAB BLOOD ORDERABLES Final Res ult Performing Organization Address City/[facility]/ZIP Co de Phone Number [facility] [address], [place] [address] [facility], [address] [place] [address] * Hepatitis C Antibody with Reflex to HCV, RNA, Quantitative, Real-Time PCR (01/24/2023 10:31 AM EST) Hepatitis C Antibody NON-REACT MARCO NON-REACT MARCO [facility] [place] [facility]anc[facility] Index 0.08 <1.00 [facility] [place] [facility] Comment: HCV antibody was non-reactive. There is no laboratory evidence of HCV infection. In most cases, no further action is required. However, if recent HCV exposure is suspected, a test for HCV RNA (test code 88348) is suggested. For additional information please refer to http://education.Geosign.Timecros/faq/AKI95o3 (This link is being provided for informational/ educational purposes only.) Blood Venous blood specimen / Unknown 01/24/2023 10:31 AM EST 01/24/2023 10:32 AM EST Narrative [facility] - 01/27/2023 2:49 PM EDT FASTING:YES FASTING: YES [facility] LAB BLOOD ORDERABLES Final Res ult [facility] [address] [facility], [place] [address] [facility] [address] [facility], ([address]) [place] [address] from Last 3 Months or Most Recently Relevant to Health Maintenance Insurance [facility]LY [facility] < 65 DENTAL - [facility] * Guarantor: Ganesh Mack Account Type Relation to Patient Date of Phone Billing Address Personal/Family Self [address] Care Teams Welfare Service Aide Relationship Specialty Start Date End Date Vale Sales NP [address] [place], [place] PCP - General Family Medicine 12/12/23 Carmen Yu PharmD [address] [place] [address] Pharmacist Internal Medicine 02/22/25
--- OUTSIDE RECORDS SUMMARY | 2025-07-20 17:45 | XMS_ITS | Encounter Summary ---
Author Organization [employer] Address [address] [facility] 7t [place] [address] Care Team Providers Care Kapok And Cotton Machine Operator Name Role Phone RosalindaVale bolanos KRYSTAL Primary Care Provider [phone] Carmen Yu PharmD Unavailable [phone] Reason for Visit * Reason Comments Med Refill Encounter Details Date Type Department Care Team ([facility] st Contact Info) Description 01/29/2024 Refill [facility] [address] [place], [place] [phone] Carey Staples FNP [address] [place] [address] Pain Social History Tobacco Use Types Packs/Day [...] Description 07/22/2025 9:30 AM EDT Office Visit [facility] [address] [place] [address] Vale Sales NP [address] [place] [address] documented as of this encounter Goals Goal [...] documented as of this encounter Care Teams Kap[employer] And Cotton Machine Operator Relationship Specialty Start Date End Date Vale Sales NP [address] [place] [phone] PCP - General Family Medicine 12/12/23 Carmen Yu PharmD [address] [place] [phone] Pharmacist Internal Medicine 02/22/25 documented as of this encounter
--- OUTSIDE RECORDS SUMMARY | 2025-07-20 17:45 | XMS_ITS | Encounter Summary ---
Author Organization [employer] Address [address] [facility] [address] [place] [address] Care Team Providers Care Electric Motor Repairman Name Role Phone Vale Sales NP Primary Care Provider [phone] Carmen Yu PharmD Unavailable [phone] Encounter Details Date Type Department Care Team ([facility] Contact Info) Description 01/11/2025 Orders Only [facility] [address] [place] [address] Everett Quiñonez MD [address] [place] [address] Abnormal CXR (chest x-ray) (Primary Dx) Social [...] 07/22/2025 9:30 AM EDT Office Visit [facility] [address] [place] [address] Vale Sales NP [address] [place] [address] Scheduled Orders Name Type Priority Associated Diagnoses [...] documented as of this encounter Care Teams Electric Motor Repairman Relationship Specialty Start Date End Date Vale Sales NP [address] [place] [address] PCP - General Family Medicine 12/12/23 Carmen Yu PharmD [address] [place] [address] Pharmacist Internal Medicine 02/22/25 documented as of this encounter
--- OUTSIDE RECORDS SUMMARY | 2025-07-20 17:45 | XMS_ITS | Encounter Summary ---
Author Organization [employer] Address [address] [facility] [address] [place] [address] Care Team Providers Care Milk Route Deliverer Name Role Phone Vale Sales NP Primary Care Provider [phone] Carmen Yu PharmD Unavailable [phone] Reason for Visit * Reason Comments Med Refill Encounter Details Date Type Department Care Team ([facility] st Contact Info) Description 06/23/2024 Refill [facility] [address] [place], [place] [phone] Vale Sales NP [address] [place] [address] Pain Social History Tobacco Use Types Packs/Day [...] 07/22/2025 9:30 AM EDT Office Visit [facility] [address] [place] [address] Vale Sales NP [address] [place] [address] documented as of this encounter Goals Goal [...] documented as of this encounter Care Teams Milk Route Deliverer Relationship Specialty Start Date End Date Vale Sales NP [address] [place] [address] PCP - General Family Medicine 12/12/23 Carmen Yu PharmD [address] [place] [phone] Pharmacist Internal Medicine 02/22/25 documented as of this encounter
--- OUTSIDE RECORDS SUMMARY | 2025-07-20 17:45 | XMS_ITS | Encounter Summary ---
Author Organization [employer] Address [address] [facility] [address] [place] [address] Care Team Providers Care Investment Executive Name Role Phone Vale Sales NP Primary Care Provider Carmen Yu PharmD Unavailable [phone] Reason for Visit * Reason Comments Med Refill Encounter Details Date Type Department Care Team ([facility] st Contact Info) Description 07/14/2025 Refill [facility] MEDICINE [address] [place] [address] Vale Sales NP [address] [place] [address] Pain Social History Tobacco Use Types Packs/Day [...] EDT Office Visit [facility] MEDICINE [address] [place] [address] Vale Sales NP [address] [place] [address] documented as of this encounter Goals Goal [...] documented as of this encounter Care Teams Investment Executive Relationship Specialty Start Date End Date Vale Sales NP [address] [place] [address] PCP - General Family Medicine 12/12/23 Carmen Yu PharmD [address] [place] [phone] Pharmacist Internal Medicine 02/22/25 documented as of this encounter
--- OUTSIDE RECORDS SUMMARY | 2025-07-20 17:45 | XMS_ITS | Encounter Summary ---
Author Organization [employer] Address [address] [facility] 7[address] [place] [address] Care Team Providers Care Principal Bioinformatics Specialist Name Role Phone Vale Sales NP Primary Care Provider [phone] Carmen Yu PharmD Unavailable [phone] Encounter Details Date Type Department Care Team ([facility] st Contact Info) Description 08/04/[address] [facility] MEDICINE [address] [place], [place] [phone] Vale Sales NP [address] [place] [address] Social History Tobacco Use Types Packs/Day Years [...] 9:30 AM EDT Office Visit [facility] MEDICINE [address] [place] [address] Vale Sales NP [address] [place] [address] documented as of this encounter Goals Goal [...] documented as of this encounter Care Teams Principal Bioinformatics Specialist Relationship Specialty Start Date End Date Vale Sales NP [address] [place] [address] [phone] PCP - General Family Medicine 12/12/23 Carmen Yu PharmD [address] [place] [phone] Pharmacist Internal Medicine 02/22/25 documented as of this encounter
== END 2025-07-20 16:40 | disposition home or self-care (01) ==
LOC: HO.HPS 15:53
PROVIDERS: PCP Internal Medicine Geriatric Medicine; Visit Provider Internal Medicine
DX: J18.9 Pneumonia, unspecified organism (principal); F17.200 Nicotine dependence, unspecified, uncomplicated
CPT/HCPCS: 94060; 99213

== ENCOUNTER → 2025-07-20 15:53 | Outpatient (BNVA) | payer OTHER, SELFPAY | PROVIDERS: PCP Internal Medicine Geriatric Medicine; Visit Provider Internal Medicine | DX: J18.9 Pneumonia, unspecified organism (principal); F17.200 Nicotine dependence, unspecified, uncomplicated | CPT/HCPCS: 99212 ==

== ENCOUNTER 2025-09-13 11:49 | Emergency (ER) | payer OTHER, SELFPAY ==
[2025-09-13 12:07] VITALS: BP 109/74; PULSE 75; RESP 18; TEMP 36.6; O2SAT 97; BMI 26.5
[2025-09-13] MEDS: Diphth,Pertus(ACell),Tet Adult 0.5 ML SYRINGE IM (12:53)
--- NOTE | 2025-09-13 13:04 | ED.GENADULT ---
HPI - General Adult General Chief complaint: Wound/Laceration Stated complaint: Lac L hand Time Seen by Provider: 09/13/25 12:15 Source: patient Mode of arrival: ambulatory Limitations: no limitations History of Present Illness ED Provider: Emile Sousa HPI narrative: 45 yold male with pmh of DM presents to the ED for laceration bewtween left thumb and pointer finger due knife cutting with a box knife at work. pateint accidently cut himself. patient unknown last tetanus shot. Related Data Home Medications ?Medication ?Instructions ?Recorded ?Confirmed dulaglutide 0.75 mg/0.5 mL mg subcut 10/27/23 07/20/25 subcutaneous pen injector (Trulicity) fenofibrate 54 mg tablet 54 mg PO DAILY 10/27/23 07/20/25 gabapentin 100 mg capsule 100 mg PO TID 10/27/23 07/20/25 glipizide 5 mg tablet, extended 5 mg PO DAILY 10/27/23 07/20/25 release 24 hr lisinopril 2.5 mg tablet 2.5 mg PO DAILY 10/27/23 07/20/25 metformin 1,000 mg tablet 1,000 mg PO BID 10/27/23 07/20/25 albuterol sulfate 90 mcg/actuation inhalation 04/06/25 07/20/25 aerosol inhaler Previous Rx's ?Medication ?Instructions ?Recorded cyclobenzaprine 5 mg tablet 5 mg PO TID PRN muscle spasm #14 05/07/23 tabs ibuprofen 600 mg tablet 600 mg PO Q6H PRN pain #30 tabs 05/07/23 bisacodyl 5 mg tablet,delayed 10 mg (2 x 5 mg) PO ONCE 1 day #2 10/27/23 release (Dulcolax (bisacodyl)) tabs polyethylene glycol 3350 17 238 g PO ONCE #238 grams 10/27/23 gram/dose oral powder (Miralax) bacitracin 500 unit/gram topical 1 appl topical TID 5 days #14 grams 09/13/25 ointment cephalexin 500 mg capsule 500 mg PO QID 7 days #28 caps 09/13/25 Allergies Allergy/AdvReac Type Severity Reaction Status Date / Time lactose AdvReac Intermediate Diarrhea Verified 09/13/25 12:12 Review of Systems Review of Systems: left hand laceratoin Yes all other systems are reviewed and are negative [facility] Past Medical History Medical History Smoker Pneumonia Macular degeneration Hypertension Diabetes type 2, controlled Social History Social History Alcohol intake: current Alcohol intake frequency: a few times a week Comment: weekend Patient Tobacco Use Status: Current everyday Tobacco user Cigarette Packs Per Day: 1.0 Substance Use Type: Marijuana Advance Directives: No Advance Directives Information Provided: Yes Do you have a plan to hurt others: No Plan Physical Exam ED Vital Signs: Vital Signs - 24 hr 09/13/25 12:07 Temperature 98 F Pulse Rate 75 Respiratory Rate 18 Blood Pressure 109/74 Pulse Oximetry 97 Oxygen Delivery Method Room Air BMI result Body Mass Index 26.5 Const General: cooperative, healthy appearing, comfortable, no acute distress, well developed, alert, awake and Physically active Orientation/consciousness: patient oriented x3 HENMT Head: Yes normal to inspection, Yes No palpable skull fracture present, Yes normocephalic and Yes atraumatic Eyes General: appearance normal, both eyes and all related structures Neck Neck: Yes normal visual inspection, Yes full ROM, Yes no lymphadenopathy, Yes no meningeal signs, Yes trachea midline, Yes supple, No anterior neck swelling and No tender Chest Chest palpation & inspection: normal inspection of the chest and normal palpation of entire chest wall Resp Effort & Inspection: normal respiratory effort and able to speak in complete sentences Auscultation: clear to auscultation bilaterally Cardio Jugular venous distension: no JVD Heart sounds: S1 normal heart sound present and S2 normal heart sound present GI Inspection: Yes normal to inspection Palpation (GI): Soft to palpation, not firm, nontender, no guarding and not rigid General: Yes no CVA tenderness Back/Spine/Pelvis Back: no CVA tenderness and No back tenderness Skin General skin exam: no rashes or lesions noted, elasticity normal and turgor normal Neuro General: patient oriented x3, gait normal, tone normal, moves all extremities, Normal light touch and pain sensation, no meningeal signs, no focal motor deficits, CN's II-XI intact bilaterally and normal sensation to monofilament Extrem General: Yes normal to inspection, Yes full ROM and Yes capillary refill normal Hand/finger images:  1. positive for laceration that is healing, closing, and granulating. negative for erythema, tenderness, pus discharge, ecchymosis, deformitiy, or foul odor. negative for signs of nerve or tendon injury. rest of extremity is normal. motor, neuro, and vascular exam is intact. Psych Appearance: grossly normal, well kempt and not disheveled Medications Administered Discontinued Medications Generic Name Dose Route Start Last Admin Trade Name Freq PRN Reason Stop Dose Admin Diphtheria/Tetanus/Acell Pertussis 0.5 ml 09/13/25 12:15 09/13/25 12:53 Diphth,Pertus(Acell),Tet Adult 0.5 Ml Syringe IM 09/13/25 12:16 0.5 ml .ONCE ONE Administration Medical Decision Making Medical Decision Making MDM Narrative: 45 yold yold male presents to the ED for left hand laceration by work knife that occurred on Friday. patient is diabettic to wound evalauted. Tdap ordered. Wound is cleaned. No laceratoin repair due to laceration occuring over 24 hours ago. wound is closing and healing. Tdap ordered. due to pmh of diabetes will discharge wtih antibiotics. not susepcting cellulitits, lymphangitis, ostoemylitits, compartment syndrome, DVT, or any other life threatening etiology. Differential Diagnosis Differential Diagnoses: The differential diagnosis associated with the presentation includes (laceraiton) Admission/Observation Consideration of admission/observation: Escalation of care including admission/observation considered Independent Historian Clinical information obtained from an independent historian. History obtained from or confirmed by: Other (patient) Prescription Management I considered prescription management with: Antibiotic Discharge Plan Discharge Clinical Impression: Laceration Patient Disposition: Home, Self-Care Instructions: Laceration (ED), Laceration Without Closure (ED) Additional Instructions: Recommend follow-up with primary care provider. Return to the ED immediately for any swelling, redness, pus discharge, foul odor, stiffness, red streaks, bluish black discoloration, fever, chills, or any other concerning symptoms. Prescriptions: New cephalexin 500 mg capsule 500 mg PO QID 7 Days Qty: 28 0RF bacitracin 500 unit/gram ointment 1 appl topical TID 5 Days Qty: 14 0RF No Action cyclobenzaprine 5 mg tablet 5 mg PO TID PRN (Reason: muscle spasm) Qty: 14 0RF ibuprofen 600 mg tablet 600 mg PO Q6H PRN (Reason: pain) Qty: 30 0RF albuterol sulfate 90 mcg/actuation HFA aerosol inhaler inhalation metformin 1,000 mg tablet 1,000 mg PO BID lisinopril 2.5 mg tablet 2.5 mg PO DAILY glipizide 5 mg tablet extended release 24hr 5 mg PO DAILY fenofibrate 54 mg tablet 54 mg PO DAILY gabapentin 100 mg capsule 100 mg PO TID Trulicity 0.75 mg/0.5 mL pen injector subcut bisacodyl [Dulcolax (bisacodyl)] 5 mg tablet,delayed release (DR/EC) 10 mg PO ONCE 1 Days Qty: 2 0RF Rx Instructions: take 2 tabs at noon the day before your colonoscopy polyethylene glycol 3350 [Miralax] 17 gram/dose powder 238 g PO ONCE Qty: 238 0RF Rx Instructions: As directed by gastroenterology department at [facility] Referrals: Name,MD Rupert [Primary Care Provider, Internal Medicine] - 2 days Referral Note: Hand laceration Clinical Impression: Laceration Stand Alone Forms: Work/School Release Interventions: ED Discharge Assessment Last Done: 09/13/25 13:16 Discharge Date/Time: 09/13/25 13:17 Print Language: Tristanian
[2025-09-13 13:16] VITALS: BP 109/74; PULSE 75; RESP 18; TEMP 36.6; O2SAT 97
--- OUTSIDE RECORDS SUMMARY | 2025-09-13 15:55 | XMS_ITS | Encounter Summary ---
Author Organization [employer] Address [address] [facility] 7t [place] [address] Care Team Providers Care Claim Service Representative Name Role Phone RosalindaVale bolanos KRYSTAL Primary Care Provider [phone] Carmen Yu PharmD Unavailable [phone] Reason for Visit * Reason Comments Med Refill Encounter Details Date Type Department Care Team ([facility] st Contact Info) Description 01/29/2024 Refill [facility] MED & PEDS [address] [place], [place] [phone] Carey Staples FNP [address] [place] [address] Pain Social History Tobacco Use Types Packs/Day [...] Care Team (Late st Contact Info) Description 09/26/2025 1:45 PM EST Office Visit [facility] MEDICINE [address] [place] [address] Vale Sales NP [address] [place] [address] documented as of this encounter Goals Goal [...] documented as of this encounter Care Teams Claim Service Representative Relationship Specialty Start Date End Date Vale Sales NP [address] [place] [address] PCP - General Family Medicine 12/12/23 Carmen Yu PharmD [address] [place] [address] Pharmacist Internal Medicine 02/22/25 documented as of this encounter
--- OUTSIDE RECORDS SUMMARY | 2025-09-13 15:55 | XMS_ITS | Encounter Summary ---
Author Organization [employer] Address [address] [place] [address] Care Team Providers Care Crushing Foreman Name Role Phone Vale Sales NP Primary Care Provider [phone] Carmen Yu PharmD Unavailable [phone] Reason for Visit * Reason Comments Med Refill Encounter Details Date Type Department Care Team ([facility] st Contact Info) Description 06/23/2024 Refill [facility] MED & PEDS [address] [place], [place] [phone] Vale Sales NP [address] [place] [address] Pain Social History Tobacco Use Types Packs/Day [...] Description 09/26/2025 1:45 PM EST Office Visit [facility] MEDICINE [address] [place] [address] Vale Sales NP [address] [place] [address] documented as of this encounter Goals Goal [...] documented as of this encounter Care Teams Crushing Foreman Relationship Specialty Start Date End Date Vale Sales NP [address] [place] [address] PCP - General Family Medicine 12/12/23 Carmen Yu PharmD [address] [place] [phone] Pharmacist Internal Medicine 02/22/25 documented as of this encounter
--- OUTSIDE RECORDS SUMMARY | 2025-09-13 15:55 | XMS_ITS | Encounter Summary ---
Author Organization [employer] Address [address] [facility] [address] [place] [address] Care Team Providers Care Strap Sewer Name Role Phone Rosalindacici Vale KRYSTAL Primary Care Provider [phone] Carmen Yu PharmD Unavailable [phone] Reason for Visit * Reason Comments Med Refill Encounter Details Date Type Department Care Team ([facility] st Contact Info) Description 10/18/2024 Refill [facility] MED & PEDS [address] [place], [place] [phone] Name, MD Rupert [address] [place] [address] Elevated blood pressure reading Social History Tobacco [...] Description 09/26/2025 1:45 PM EST Office Visit [facility] MEDICINE [address] [place] [address] Vale Sales NP [address] [place] [address] documented as of this encounter Goals Goal [...] documented as of this encounter Care Teams Strap Sewer Relationship Specialty Start Date End Date Vale Sales NP [address] [place] [address] PCP - General Family Medicine 12/12/23 Carmen Yu PharmD [address] [place] [address] Pharmacist Internal Medicine 02/22/25 documented as of this encounter
--- OUTSIDE RECORDS SUMMARY | 2025-09-13 15:55 | XMS_ITS | Clinical Summary ---
Author Organization [employer] Address [address] [facility] 7t [place] [address] Care Team Providers Care Tavern Car Attendant Name Role Phone Henrry Vale KRYSTAL Primary Care Provider [phone] Carmen Yu PharmD Unavailable [phone] Allergies Active Allergy Reactions Criticality Noted Date Comments Lactose Diarrhea 01/02/2022 Medications Blood Glucose Monitoring Suppl (FreeStyle Sheridan Lite) w/Device kitIndications:Ty pe 2 diabetes mellitus without complication, unspecified whether terminal computer operator insulin use Use to check blood sugar twice daily 1 kit 02/01/20 23 Active FREESTYLE LITE test stripIndications: Type 2 diabetes mellitus without complication, unspecified whether terminal computer operator insulin use TEST BLOOD SUGAR TWICE DAILY 100 each 11 02/01/20 23 Active TRUEplus Lancets 33G miscIndications:T ype 2 diabetes mellitus without complication, unspecified whether snf insulin use TEST BLOOD SUGAR TWICE DAILY 100 each 11 02/01/20 23 Active Continuous Glucose Yarn Bleaching Machine Operator (FreeStyle Bertin 3 Sedley) deviceIndications :Uncontrolled type 2 diabetes mellitus with hyperglycemia (HCC) 1 each Once per day. Use as directed for CGM 1 each 01/19/20 25 Active Continuous Glucose Sensor (FreeStyle Bertin 3 Plus Sensor) miscIndications:U ncontrolled type 2 diabetes mellitus with hyperglycemia (HCC) 1 each every 15 days. Apply 1 every 15 days as directed for CGM 2 each 01/19/20 25 Active glucose blood (FreeStyle Precision Baldev Test) test stripIndications: Uncontrolled type 2 diabetes mellitus with hyperglycemia (HCC) Use to test blood sugar 3 times daily in case of CGM failure or extremes of BG 100 each 11 01/19/20 25 026 Active albuterol 108 (90 Base) MCG/ACT inhaler Inhale 2 puffs every 4 (four) hours if needed for wheezing or shortness of breath. 18 g 1 02/08/20 25 026 Active Spacer/Aero-Holdi ng Chambers (OptiChamber Devika) misc 1 each every 4 (four) hours if needed (asthma). 1 each 02/08/20 25 Active empagliflozin-met FORMIN ER (Synjardy XR) 5-1000 MG 24 hr tablet Take 2 tablets by mouth with breakfast. 60 tablet 11 02/23/20 25 026 Active Alcohol Swabs (Alcohol Prep) 70 % padsIndications:T ype 2 diabetes mellitus without complication, unspecified whether snf insulin use USE TWICE DAILY 100 each 04/08/20 25 Active omega-3 acid ethyl esters (Lovaza) 1 g capsuleIndication s:Low HDL (under 40) TAKE 1 CAPSULE BY MOUTH TWICE DAILY IN THE MORNING AND IN THE EVENING 60 capsule 11 04/21/20 25 Active ibuprofen 400 MG tablet Take 1 tablet (400 mg) by mouth every 6 (six) hours if needed for moderate pain or fever for up to 30 doses. 30 tablet 07/12/20 25 Active tiZANidine (Zanaflex) 4 MG tabletIndications :Cervical radiculopathy Take 1 tablet (4 mg) by mouth at bedtime. 30 tablet 07/12/20 25 Active lisinopril 2.5 MG tabletIndications :Elevated blood pressure reading TAKE 1 TABLET BY MOUTH EVERY MORNING 90 tablet 07/13/20 25 Active fenofibrate (Tricor) 54 MG tabletIndications :Hypertriglycerid emia TAKE 1 TABLET BY MOUTH EVERY MORNING 90 tablet 07/13/20 25 Active D3 Super Strength 50 MCG (1999 UT) capsuleIndication s:Type 2 diabetes mellitus without complication, unspecified whether terminal computer operator insulin use TAKE 1 CAPSULE BY MOUTH EVERY MORNING 90 capsule 07/13/20 25 Active atorvastatin (Lipitor) 40 MG tablet TAKE 1 TABLET BY MOUTH EVERY MORNING 90 tablet 07/13/20 25 Active gabapentin (Neurontin) 100 MG capsuleIndication s:Pain TAKE 1 CAPSULE BY MOUTH THREE TIMES DAILY IN THE MORNING, EVENING, AND BEDTIME 90 capsule 1 07/15/20 25 Active Ozempic, 0.25 or 0.5 MG/DOSE, 2 MG/3ML solution pen-injector INJECT 0.5 MG SUBCUTANEOUSLY EVERY 7 DAYS IN THE ABDOMEN, THIGHS, OR UPPER ARM, ROTATE INJECTION SITES. 3 mL 1 08/11/20 25 Active Active Problems Problem Noted Date [...] home: Has upcoming dental hygiene appointment with [facility] dental. Chronic low back pain 12/27/2014 Hypertriglyceridemia [...] appointment 04/02/23 Diabetes mellitus type 2, uncomplicated ([facility]) - Primary Today: A1C 8.3 Glucose 143 [...] Encounters Date Type Department Care Team Description 09/12/2025 Orders Only [facility] MEDICINE [address] [place] [address] 350[address] Gabriel Stafford RN 08/10/2025 Refill [facility] [address] [place] [address]596 Vale Sales NP 07/21/2025 Telephone [facility] [address] [place] [address] Vale Sales, KRYSTAL Chart Prep 07/14/2025 Refill [facility] MED[facility] [address] [place] [address] 12[address] Vale Sales NP Pain 07/13/2025 Refill [facility] [address] [place] [address] Rupert Paredes MD Elevated blood pressure reading; Hypertriglyceridemia; Type 2 diabetes mellitus without complication, unspecified whether snf insulin use ([facility]) 07/12/2025 8:40 AM EDT Office Visit [facility] [address] [address] Everett Unger MD Injury of left shoulder, subsequent encounter (Primary Dx); Acute pain of left shoulder; Neck pain; Injury of neck, subsequent encounter; Abnormal chest x-ray; Cervical radiculopathy 07/12/2025 Orders Only [facility] [address] [address] Everett Unger MD 07/12/2025 Travel 06/27/2025 10:40 AM EDT [facility] [address] [address] Rupert Paredes MD Cervical radiculopathy (Primary Dx) 06/27/2025 Travel from Last 3 Months Immunizations Immunization Administration [...] 0.6 oz pur e alcohol) fridays - beer Depression Answer Date Recorded Patient Health Questionnaire-9 [...] Description 09/26/2025 1:45 PM EST Office Visit [facility] MEDICINE [address] [place] [address] Vale Sales NP [address] [place] [address] Health Maintenance Due Date Last Done Comments CT Colonography 1978 Colonoscopy 1978 Colorectal Cancer Screening 1978 FIT DNA/Cologuard 1978 FIT 1978 FOBT 1978 Sigmoidoscopy 1978 Diabetes: Foot Exam 1988 Alcohol/Substance Use Screening 1990 Family Planning (PISQ) 1993 Hepatitis B Vaccines (1 of 3 - 19+ 3-dose series) 1997 Diabetes: Urine Protein Screening 07/01/2024 07/01/2023, 01/09/2022 Diabetes: Hemoglobin A1C 07/09/2025 025, 02/07/2025, 10/05/2024, Additional history exists COVID-19 Vaccine ( - season) 2025 Influenza Vaccine (#1) 2025 8, 10/22/2016, 09/05/2015, Additional history exists Depression Screening 07/23/2025 07/23/2024, 07/23/20 Dental Oral Exam 08/13/2025 02/09/2025, 12/25/2022 Dental Prophylaxis 08/13/2025 02/09/2025, 01/07/2023 Dental X-Ray: Full Mouth 12/26/2025 12/25/2022 SDOH Screening 12/28/2025 12/28/2024 Dental X-Ray: Bitewings 02/10/2026 02/09/2025, 12/25 Disability Screening 04/08/2026 04/08/2025 Lipid Panel 05/11/2026 05/11/2025, 01/15, 01/09/2022 Tobacco Screening 07/12/2026 07/12/2025 Eye Exam 03/31/2027 03/31/2025, 03/17, 03/31/2025, Additional history exists Zoster Vaccines (1 of 2) 2028 DTaP/Tdap/Td Vaccines (4 - Td or Tdap) 09/13/2035 09/13/2025, 06/14/2022, 07/18/2010 RSV Patients and Patients Aged 60 years or older (1 - 1-dose 75+ series) 2053 Pneumococcal Vaccine: Pediatrics (0 to 5 Years) and At-Risk Patients (6 to 49) Years Completed 01/30/2023, 06/02/2012 HIV Screening Completed 09/07/2025, 01/24/2023 Hepatitis C Screening Completed 09/07/2025, 023 HIB Vaccines Aged Out No longer eligi [...] 140/90 Blood Pressure 130/79(2024 8:49 AM EDT) Gen Arriaza Hemoglobin A1c < 7 Result Component 11(04/08/2025 2:31 PM EDT) No Gen Vora Procedures Procedure Name Priority Date/Time Associated Diagnosis Comments HIV ANTIBODY/ANTIGEN ([place] DPH) Routine 09/07/2025 HEPATITIS C ANTIBODY ([place] DPH) Routine 09/07/2025 SYPHILIS ABS ([place] DPH) Routine 09/07/2025 CHLAMYDIA/GONORRHEA - URINE ([place] DPH) Routine 09/07/2025 XR CERVICAL SPINE 3V Routine 07/12/2025 9:12 AM EDT XR SHOULDER 2+ VIEWS LEFT Routine 07/12/2025 8:33 AM EDT Injury of left shoulder, subsequent encounter Acute pain of left shoulder LIPID PANEL, STANDARD Routine 05/11/2025 11:18 AM EDT POCT GLYCATED HEMOGLOBIN, TOTAL Routine 04/08/2025 2:31 PM EDT Type 2 diabetes mellitus without complication, without long-term current use of insulin ([facility]) PROPHYLAXIS - ADULT Routine 02/09/2025 1 :00 PM EDT Periodontal disease Dental calculus Dental plaque Subgingival dental calculus Supragingival dental calculus BITEWINGS - 4 RADIOGRAPHIC IMAGES Routine 02/09/2025 1:00 PM EDT PERIODIC ORAL EVALUATION - ESTABLISHED PATIENT Routine 02/09/2025 1:00 PM EDT Encounter for dental examination Periodontal disease Dental calculus Dental plaque ALBUMIN, RANDOM URINE W/CREATININE Routine 07/01/2023 10:20 AM EDT INTRAORAL - COMPLETE SERIES OF RADIOGRAPHIC IMAGES Routine 12/25/2022 10:00 AM EST Periodontal disease from Last 3 Months or Most Recently Relevant to Health Maintenance Results * Chlamydia/Gonorrhea, Urine ([place] DPH) (09/07/2025) Chlamydia, Urine Negative Negative, Indeterminate, None Detected, Invalid, Specimen unsatisfactory for evaluation, Weakly Positive, 2+ Gonorrhea, Urine Negative Negative, Indeterminate, None Detected, Invalid, Specimen unsatisfactory for evaluation, Weakly Positive, 2+ Urine 09/07/2025 [facility] Provider MD LAB URINE ORDERABLES Cynthia l Result * Syphilis Antibodies (DPH) (09/07/2025) Syphilis Abs Nonreactive Borderline, Nonreactive, Weakly Reactive, Inconclusive, Specimen unsatisfactory for evaluation Blood Venous blood specimen / Unknown 09/07/2025 Result [facility] Provider MD LAB BLOOD ORDERABLES Cynthia l Result * Hepatitis C Antibody ([place] DPH) (09/07/2025) Hepatitis C Ab Nonreactive Blood 09/07/2025 [facility] Provider MD LAB BLOOD ORDERABLES Cynthia l Result * HIV Ab/Ag ([place] DPH) (09/07/2025) HIV Ag/Ab Nonreactive Blood 09/07/2025 Result [facility] Provider MD LAB BLOOD ORDERABLES Cynthia l Result * XR CERVICAL SPINE 3V (07/12/2025 9:12 AM EDT) Anatomical Region Laterality Modality Abdomen Radiographic Eryn ging 07/12/2025 9:12 AM EDT Narrative 07/12/2025 10:26 AM EDT [address] [address] XRay Report Signed Patient: Ganesh Brown R#: [id number] : 1980 Acct:[id number] Age/Sex: 44 / M ADM Date: 07/12/25 Loc: HO.CX Attending Dr: Everett Unger MD Ordering Physician: EVERETT UNGER MD Date of Service: 07/12/25 Procedure(s): XR cervical spine 3V Accession Number(s): [id number] cc: EVERETT UNGER MD EXAMINATION: XR CERVICAL SPINE CLINICAL INFORMATION: [...] 07/12/25 1023 DD/ 0912 TD/TT: 07/12/25 0914 Grocery Shopper: Procedure Note Donotuseinterpreter, Image - 07/12/[address] [address] XRay Report Signed Patient: Edyta Brown R#: [id number] : 1980Acct:[id number] Age/Sex: 44 / MADM Date: 07/12/25 Loc: CAROLX Attending Dr: Everett Unger MD Ordering Physician: EVERETT UNGER MD Date of Service: 07/12/25 Procedure(s): XR cervical spine 3V Accession Number(s): [id number] cc: EVERETT UNGER MD EXAMINATION: XR CERVICAL SPINE CLINICAL INFORMATION: [...] 07/12/25 1023 DD/ 0912 TD/TT: 07/12/25 0914 Grocery Shopper: Everett Unger MD IMG XR PROCEDURES Final Result * XR Shoulder 2+ Views Left (07/12/2025 8:33 AM EDT) Anatomical Region Laterality Modality Upper Extremities, Shoulder Left Radi ographic Imaging 07/12/2025 8:33 AM EDT Narrative 07/12/2025 10:24 AM EDT [address] [address] XRay Report Signed Patient: Ganesh Brown R#: [id number] : 1980 Acct:[id number] Age/Sex: 44 / M ADM Date: 07/12/25 Loc: HO.HHCX Attending Dr: Everett Unger MD Ordering Physician: EVERETT UNGER MD Date of Service: 07/12/25 Procedure(s): XR shoulder LT min 2V Accession Number(s): [id number] cc: EVERETT UNGER MD EXAMINATION: XR SHOULDER, LEFT CLINICAL INFORMATION: [...] shoulder. Normal radiographs. Electronically signed by: John Maceod MD 07/12/2025 10:21 AM EDT RP Dictated By: John Macedo MD Signed By: <Electronically signed by John Macedo MD in OV> 07/12/25 1021 DD/ 0833 TD/TT: 07/12/25 0900 Grocery Shopper: Procedure Note Donotuseinterpreter, Image - 07/12/[address] [address] XRay Report Signed Patient: Edyta Brown R#: [id number] : 1980Acct:[id number] Age/Sex: 44 / MADM Date: 07/12/25 Loc: HO.HHCX Attending Dr: Everett Unger MD Ordering Physician: EVERETT UNGER MD Date of Service: 07/12/25 Procedure(s): XR shoulder LT min 2V Accession Number(s): [id number] cc: EVERETT UNGER MD EXAMINATION: XR SHOULDER, LEFT CLINICAL INFORMATION: [...] John Macedo MD 07/12/2025 10:21 AM EDT RP Dictated By: John Macedo MD Signed By: <Electronically signed by John Macedo MD in OV> 07/12/25 1021 DD/ 0833 TD/TT: 07/12/25 0900 Grocery Shopper: us Everett Unger MD IMG XR PROCEDURES Final Result * (ABNORMAL) Lipid Panel, Standard (05/11/2025 11:18 AM EDT) Triglycerides 69 <150 mg/dL [facility] Comment:Desirable Triglyceri de: less than 150 mg/dLBorderline High Triglyceride 150-199 mg/dLHigh Triglyceride: 200-499 mg/dLVery High Triglyceride: greater than or equal to 5OO mg/dL Cholesterol 67 <200 mg/dL [facility] Comment:Desirable Cholestero l: less than 200 mg/dLBorderline High Cholesterol: 200-239 mg/dLHigh Cholesterol: greater than 239 mg/dL LDL Cholesterol Calculated 24 <100 mg/dL [facility] Comment:Desirable LDL: less than 100 mg/dLNear Optimal/Above Optimal LDL: 110- 129 mg/dLBorderline High LDL: 130-159 mg/dLHigh LDL: 160-189 mg/dLVery High LDL: greater than or equal to 190 mg/dL HDL Cholesterol 30(L) >40 mg/dL [facility] Comment:Desirable HDL: great er than 40 mg/dL Note: This HDL assay may give artificially low results in patients with liver disease. 05/11/2025 11:1 8 AM EDT 05/11/2025 11:18 AM EDT us Generic External Data Provider LAB BLOOD ORDERAB LES Final Result [facility] [address] [place] [address] [phone] * (ABNORMAL) POCT HGB A1C (04/08/2025 2:31 PM EDT) Hemoglobin A1C 11.0(A) 4.0 - 6.0 % QC Media Lot # [id number] Lot# Expiration Date [id number] Blood 04/08/2025 2:31 PM EDT Rupert Paredes MD POINT OF CARE TEST ENTER/EDIT OR DERABLES Final Result * Albumin, Random Urine W/Creatinine (07/01/2023 10:20 AM EDT) Creatinine, Urine 69.61 mg/dL [facility] Microalbumin Urine <5.0 mg/L [facility] Microalbum Creatinine Ratio Ur TNP ug/mg cr [facility] Comment:Unable to calculate albumin/creatinine ratio due to lowmicroalbumin or creatinine result. 07/01/2023 10:2 0 AM EDT 07/01/2023 11:33 AM EDT Bhanu STEPHENSON LAB URINE ORDERABLES Final Res ult [facility] [address] [place] [address] [phone] from Last 3 Months or Most Recently Relevant to Health Maintenance Insurance [facility] < [address] [id number] Care Teams Tavern Car Attendant Relationship Specialty Start Date End Date Vale Sales NP [address] [place] [address] PCP - General Family Medicine 12/12/23 Carmen Yu PharmD [address] [place] [address] Pharmacist Internal Medicine 02/22/25
--- OUTSIDE RECORDS SUMMARY | 2025-09-13 15:55 | XMS_ITS | Encounter Summary ---
Author Organization [employer] Address [address] [facility] 7t [place] [address] Care Team Providers Care Civil Service Worker Name Role Phone Vale Sales NP Primary Care Provider [phone] Carmen Yu PharmD Unavailable [phone] Encounter Details Date Type Department Care Team ([facility] st Contact Info) Description 08/04/2024 Telephone [facility] MED[facility] [address] [place], [place] [phone] Vale Sales NP [address] [place] [address] Social History Tobacco Use Types Packs/Day Years [...] Description 09/26/2025 1:45 PM EST Office Visit [facility] [address] [place] [address] Vale Sales NP [address] [place] [address] documented as of this encounter Goals Goal [...] documented as of this encounter Care Teams Civil Service Worker Relationship Specialty Start Date End Date Vale Sales NP [address] [place] [address] [phone] PCP - General Family Medicine 12/12/23 Carmen Yu PharmD [address] [place] [address] [phone] Pharmacist Internal Medicine 02/22/25 documented as of this encounter
--- OUTSIDE RECORDS SUMMARY | 2025-09-13 15:55 | XMS_ITS | Encounter Summary ---
Author Organization [employer] Address [address] [facility] 7t [place] [address] Care Team Providers Care Color Mixer Name Role Phone Vale Sales NP Primary Care Provider [phone] Carmen Yu PharmD Unavailable [phone] Reason for Visit * Reason Comments Med Refill Encounter Details Date Type Department Care Team ([facility] st Contact Info) Description 05/14/2025 Refill [facility] MED[facility] [address] [place] [address] Vale Sales NP [address] [place] [address] Pain Social History Tobacco Use Types Packs/Day [...] Description 09/26/2025 1:45 PM EST Office Visit [facility] MEDICINE [address] [place] [phone] Vale Sales NP [address] [place] [address] documented as of this encounter Goals Goal [...] documented as of this encounter Care Teams Color Mixer Relationship Specialty Start Date End Date Vale Sales NP [address] [place] [address] PCP - General Family Medicine 12/12/23 Carmen Yu PharmD [address] [place] [phone] Pharmacist Internal Medicine 02/22/25 documented as of this encounter
--- OUTSIDE RECORDS SUMMARY | 2025-09-13 15:55 | XMS_ITS | Encounter Summary ---
Author Organization [employer] Address [address] [facility] 7t [place] [address] Care Team Providers Care Maintenance Supervisor Mechanical Name Role Phone Jamin Bhanu AGNJohan Primary Care Provider Unavail able Carey StaplesP Primary Care Provider [phone] Vale Sales NP Primary Care Provider [phone] Carmen Yu PharmD Unavailable [phone] Encounter Details Date Type Department Care Team ([facility] Contact Info) Description 12/31/[address] [facility] ADULT DENTAL [address] [place] [address] Elver Montiel DDS [address] [place] [address] Social History Tobacco Use Types Packs/Day Years [...] Upcoming Encounters Date Type Department Care Team ([facility] Contact Info) Description 09/26/2025 1:45 PM EST Office Visit [facility] MEDICINE [address] [place] [address] Vale Sales, KRYSTAL [address] [place] [address] documented as of this encounter Visit Diagnoses Not on filedocumented in this encounter Care Teams Maintenance Supervisor Mechanical Relationship Specialty Start Date End Date Bhanu Neville AGNP PCP - General Family Medicine 11/19/22 08/06/23 Carey Staples FNP [address] [place] [address] PCP - General Family Medicine 08/07/23 12/11/23 Vale Sales NP [address] [place] [address] PCP - General Family Medicine 12/12/23 Carmen Yu PharmD [address] [place] [phone] Pharmacist Internal Medicine 02/22/25 documented as of this encounter
--- OUTSIDE RECORDS SUMMARY | 2025-09-13 15:55 | XMS_ITS | Encounter Summary ---
Author Organization [employer] Address [address] [facility] [address] [place] [address] Care Team Providers Care Catalog Specialist Name Role Phone Vale Sales NP Primary Care Provider [phone] Carmen Yu PharmD Unavailable [phone] Encounter Details Date Type Department Care Team ([facility] Contact Info) Description 01/11/[address] [facility] [address] [place] [address] Everett Quiñonez MD [address] [place] [address] Abnormal CXR (chest x-ray) (Primary Dx) Social [...] Description 09/26/2025 1:45 PM EST Office Visit [facility] [address] [place] [address] Vale Sales NP [address] [place] [address] Scheduled Orders Name Type Priority Associated Diagnoses [...] documented as of this encounter Care Teams Catalog Specialist Relationship Specialty Start Date End Date Vale Sales NP [address] [place] [address] PCP - General Family Medicine 12/12/23 Carmen Yu PharmD [address] [place] [address] Pharmacist Internal Medicine 02/22/25 documented as of this encounter
--- OUTSIDE RECORDS SUMMARY | 2025-09-13 15:55 | XMS_ITS | Encounter Summary ---
Author Organization [employer] Address [address] [place] [address] [address] [place] [address] Care Team Providers Care Cooler Worker Name Role Phone LoganCarey talavera LUIS F Primary Care Provider [phone] Vale Sales NP Primary Care Provider [phone] Carmen Yu PharmD Unavailable [phone] Reason for Visit * Reason Comments Med Refill Encounter Details Date Type Department Care Team (Late Contact Info) Description 08/13/[address] [facility] MED[facility]INE [address] [place] [address] [phone] Bhanu Neville AGNP Hypertriglyceridemia Social History Tobacco [...] Department Care Team (Late Contact Info) Description 09/26/2025 1:45 PM EST Office Visit [facility] MED[facility] [address] [place], [place] [phone] Vale Sales NP [address] [place], [place] [phone] documented as of this encounter Visit Diagnoses Diagnosis Hypertriglyceridemia Pure hyperglyceridemia documented in this encounter Additional Health Concerns Assessment Noted Time PHQ-9 Depression Total Score: 9 04/02/20 23 2:32 PM EDT documented as of this encounter Care Teams Cooler Worker Relationship Specialty Start Date End Date Carey Staples FNP [address] [place] [address] PCP - General Family Medicine 08/07/23 12/11/23 Vale Sales NP [address] [place] [address] PCP - General Family Medicine 12/12/23 Carmen Yu PharmD [address] [place] [phone] Pharmacist Internal Medicine 02/22/25 documented as of this encounter
--- OUTSIDE RECORDS SUMMARY | 2025-09-13 15:55 | XMS_ITS | Encounter Summary ---
Author Organization [facility] Address [address] [place] [address] Care Team Providers Care Approver Name Role Phone Henrry Vale KRYSTAL Primary Care Provider [phone] Carmen Yu PharmD Unavailable [phone] Encounter Details Date Type Department Care Team ([facility] Contact Info) Description 09/12/2025 Orders Only [facility] [address] [place] [address] Gabriel Stafford, KEVAN [address] [place] [address] Social History Tobacco Use Types Packs/Day Years [...] as of this encounter Progress Notes * Gabriel Stafford RN - 09/12/2025 11:19 AM EDT To enter [facility] labs documented in this encounter Plan of Treatment Upcoming Encounters Date Type Department Care Team (Late st Contact Info) Description 09/26/2025 1:45 PM EST Office Visit [facility] [address] [place] [address] Vale Sales NP [address] [place] [address] documented as of this encounter Goals Goal Patient Goal Type Associated Problems Recent Progress Patient-Stated? Author Blood Pressure < 140/90 Blood Pressure 130/79(2024 8:49 AM EDT) No Gen [facility] Hemoglobin A1c < 7 Result Component 11(04/08/2025 2:31 PM EDT) No [facility] documented as of this encounter Procedures Procedure Name Priority Date/Time Associated Diagnosis Comments CHLAMYDIA/GONORRHEA - URINE ([facility]) Routine 09/07/2025 SYPHILIS ABS ([facility]) Routine 09/07/2025 HEPATITIS C ANTIBODY ([facility]) Routine 09/07/2025 HIV ANTIBODY/ANTIGEN ([facility]) Routine 09/07/2025 documented in this encounter Results * HIV Ab/Ag ([facility]) (09/07/2025) HIV Ag/Ab Nonreactive Blood 09/07/[address] [facility] Provider MD LAB BLOOD ORDERABLES Cynthia l Result * Hepatitis C Antibody ([facility]) (09/07/2025) Hepatitis C Ab Nonreactive Blood 09/07/[address] [facility] Provider MD LAB BLOOD ORDERABLES Cynthia l Result * Syphilis Antibodies ([facility]) (09/07/2025) Syphilis Abs Nonreactive Borderline, Nonreactive, Weakly Reactive, Inconclusive, Specimen unsatisfactory for evaluation Blood Venous blood specimen / Unknown 09/07/2025 Result [facility] Provider MD LAB BLOOD ORDERABLES Cynthia l Result * Chlamydia/Gonorrhea, Urine ([facility]) (09/07/2025) Chlamydia, Urine Negative Negative, Indeterminate, None Detected, Invalid, Specimen unsatisfactory for evaluation, Weakly Positive, 2+ Gonorrhea, Urine Negative Negative, Indeterminate, None Detected, Invalid, Specimen unsatisfactory for evaluation, Weakly Positive, 2+ Urine 09/07/[address] [facility] Provider MD LAB URINE ORDERABLES Cynthia l Result documented in this encounter Visit Diagnoses Not on filedocumented in this encounter Additional Health Concerns Assessment Noted Time PHQ-9 Depression Total Score: 0 07/23/20 24 3:50 PM EDT documented as of this encounter Care Teams Approver Relationship Specialty Start Date End Date Vale Sales NP [address] [place] [id number] PCP - General Family Medicine 12/12/23 Carmen Yu, RaymondD [address] [place] [phone] Pharmacist Internal Medicine 02/22/25 documented as of this encounter
--- OUTSIDE RECORDS SUMMARY | 2025-09-13 15:55 | XMS_ITS | Encounter Summary ---
Author Organization [employer] Address [address] [place] [address] [address] [place] [address] Care Team Providers Care Designer Name Role Phone Carey Staples Primary Care Provider [phone] Vale Sales NP Primary Care Provider [phone] Carmen Yu PharmD Unavailable [phone] Encounter Details Date Type Department Care Team (Late Contact Info) Description 08/11/2023 Telephone [facility] [address] [place] [phone] Carey Staples FNP [address] [place] [phone] Social History Tobacco Use Types Packs/Day Years [...] Description 09/26/2025 1:45 PM EST Office Visit [facility] [address] [place] [phone] Vale Sales, KRYSTAL [address] [place] [address] documented as of this encounter Visit Diagnoses Not on filedocumented in this encounter Additional Health Concerns Assessment Noted Time PHQ-9 Depression Total Score: 9 04/02/20 23 2:32 PM EDT documented as of this encounter Care Teams Designer Relationship Specialty Start Date End Date Carey Staples FNP [address] [place] [address] PCP - General Family Medicine 08/07/23 12/11/23 Vale Sales NP [address] [place] [address] PCP - General Family Medicine 12/12/23 Carmen Yu PharmD [address] [place] [phone] Pharmacist Internal Medicine 02/22/25 documented as of this encounter
== END 2025-09-13 13:17 | disposition home or self-care (01) ==
PROVIDERS: Emergency Provider Emergency Medicine; PCP Internal Medicine Geriatric Medicine
DX: S61.412A Laceration without foreign body of left hand, initial encounter (principal); I10 Essential (primary) hypertension; E11.9 Type 2 diabetes mellitus without complications; Z72.0 Tobacco use; W26.0XXA Contact with knife, initial encounter; Y99.0 Civilian activity done for income or pay; Y92.89 Other specified places as the place of occurrence of the external cause
CPT/HCPCS: 90471; 90715; 99282; 99284

== ENCOUNTER 2025-10-27 15:12 | Outpatient (AMB) | payer OTHER, SELFPAY ==
[2025-10-27 15:30] VITALS: BMI 26.4
--- NOTE | 2025-10-27 15:30 | MHC.OFFVIS ---
Vital Signs 10/27/25 15:30 Height 6 ft Weight 195 lb BMI 26.4 Intake Visit Reasons: Left shoulder pain and weakness Intake Note: Ganesh is a 45 year old male right hand dominant who presents with complaints of progressively worsening left shoulder pain and weakness as well as neck pain after suffering a work injury in April of 2025. The patient states that he fell onto his left shoulder. Since that time he has had difficulty lifting his left hand above shoulder height. He also reports numbness and tingling radiating down his left arm to his left hand. He has failed the last 6 weeks of conservative treatment which has included physical therapy, muscle relaxants, Tylenol and anti-inflammatory medicines. Allergies lactose Adverse Reaction (Intermediate, Verified 10/27/25 15:31) Diarrhea Medication List - Last Reconciled 10/27/25 by Rickie Page MD albuterol sulfate 90 mcg/actuation inhalation bacitracin 1 appl topical TID 5 days bisacodyl (Dulcolax (bisacodyl)) 10 mg (2 x 5 mg) PO ONCE 1 day cyclobenzaprine 5 mg PO TID PRN dulaglutide (Trulicity) mg subcut fenofibrate 54 mg PO DAILY gabapentin 100 mg PO TID glipizide ER 5 mg PO DAILY ibuprofen 600 mg PO Q6H PRN lisinopril 2.5 mg PO DAILY metformin 1,000 mg PO BID polyethylene glycol 3350 (Miralax) 238 grams PO ONCE PFSH Medical History Smoker Pneumonia Macular degeneration Hypertension Diabetes type 2, controlled Social History Alcohol intake: current Alcohol intake frequency: a few times a week Comment: weekend Patient Tobacco Use Status: Current everyday Tobacco user Cigarette Packs Per Day: 1.0 Substance Use Type: Marijuana Physical Exam Vital Signs: BMI result Body Mass Index 26.4 Const Other: Well-nourished well-developed very friendly male awake alert and oriented x3 in no acute distress Extrem Other: Left shoulder examination shows decreased range of motion when compared to his right shoulder, 4+ out of 5 strength with supraspinatus testing, positive impingement signs, tenderness over his acromioclavicular joint, no instability Results Reviewed Results Reviewed: X-rays of the patient's left shoulder show severe acromioclavicular joint narrowing, a type 2 acromion, no acute bony abnormalities Assessment & Plan Assessment & Plan (1) Rotator cuff insufficiency of left shoulder: Code(s): M25.312 - Other instability, left shoulder Category: Medical Plan Mr. Frederick Leonarod presents with left shoulder pain and weakness due to impingement syndrome and possible rotator cuff tearing. Thus, I will send the patient for an MRI of his left shoulder for further evaluation. I will see him back once the MRI is completed to discuss the findings and treatment options. Feel free to call me at any time should questions regarding his orthopedic management arise. I spent 20 minutes in reviewing the patient's records and imaging studies, seeing the patient and documenting in the medical record. Orders: Orders MR shoulder LT wo con Today M25.312 - Other instability, left shoulder Coding Level of Care Code New Pt Level 3 (55260) Add On Problem Visit Only Diagnoses Rotator cuff insufficiency of left shoulder M25.312
== END 2025-10-27 16:10 | disposition home or self-care (01) ==
PROVIDERS: PCP Internal Medicine Geriatric Medicine; Visit Provider Orthopaedic Surgery
DX: M25.312 Other instability, left shoulder (principal)
CPT/HCPCS: 99203; G2211

== ENCOUNTER → 2025-10-27 15:12 | Outpatient (BNVA) | payer OTHER, SELFPAY | PROVIDERS: PCP Internal Medicine Geriatric Medicine; Visit Provider Orthopaedic Surgery | DX: M25.312 Other instability, left shoulder (principal) | CPT/HCPCS: 99202 ==